=== PATIENT | male | born 1955 | race American Indian/Alaskan Native ===

== ENCOUNTER 2018-11-23 22:11 | Inpatient (IN) | payer OTHER ==
[2018-11-23 23:13] LABS: Basophils # (Auto) 0.1 K/mm3 (0.0-0.1); Basophils % (Auto) 1.6 % (0.0-1.8); Hematocrit 41.3 % (35.5-45.6); Hemoglobin 13.4 gm/dl (11.8-15.2); Lymphocytes % (Auto) 20.2 % (13.4-35.0); Mean Corpuscular HGB Conc 32 % (32-34); Mean Corpuscular Volume 76 fl (84-94); Monocytes # (Auto) 0.4 K/mm3 (0.0-0.8); Monocytes % (Auto) 7.4 % (0.0-7.3); Platelet Count 193 K/mm3 (140-440); Red Blood Count 5.42 M/mm3 (3.65-5.03); Red Cell Distribution Width 17.6 % (13.2-15.2)
--- NOTE | 2018-11-23 23:16 | Emergency Department Report ---
ED General Adult HPI - General Chief complaint: Chest Pain Stated complaint: CHEST PAIN/SOB/STIFFNESS OF BOTH LEGS Time Seen by Provider: 11/23/18 23:06 Source: patient Mode of arrival: Ambulatory Limitations: No Limitations - History of Present Illness Initial comments: 63-year-old male with a history of hypertension, diabetes, and hypercholesterolemia presents complaining of chest pain. Patient states the chest pain is in the left side of his chest. Patient states the chest pain began this morning. Patient states the pain has been recurring. Patient states the pain radiates to his neck and his left upper extremity. Patient denies any history of DVT or PE and has been no recent travel last 2 years. Patient does admit to smoking cigarettes. Patient complains of a dry cough. Patient complains of lower extremity swelling as well as stiffness in both of his legs. Severity scale (0 -10): 10 - Related Data Home Medications Medication Instructions Recorded Confirmed Last Taken Aspirin 81 mg PO DAILY 11/23/18 11/23/18 11/23/18 Losartan [Cozaar] 100 mg PO QDAY 11/23/18 11/23/18 11/23/18 Simvastatin 20 mg PO DAILY 11/23/18 11/23/18 11/23/18 amLODIPine [Norvasc] 5 mg PO DAILY 11/23/18 11/23/18 11/23/18 glipiZIDE XL [Glucotrol Xl] 10 mg PO DAILY 11/23/18 11/23/18 11/23/18 Allergies Allergy/AdvReac Type Severity Reaction Status Date / Time lisinopril Allergy Unknown Verified 11/23/18 22:13 ED Review of Systems ROS: Stated complaint: CHEST PAIN/SOB/STIFFNESS OF BOTH LEGS Other details as noted in HPI Constitutional: denies: chills, fever Eyes: denies: eye pain, eye discharge, vision change ENT: denies: ear pain, throat pain Respiratory: denies: cough, shortness of breath, wheezing Cardiovascular: chest pain Endocrine: no symptoms reported Gastrointestinal: denies: abdominal pain, nausea, diarrhea Genitourinary: denies: urgency, dysuria Musculoskeletal: other (lower extremity swelling). denies: back pain, joint swelling, arthralgia Skin: denies: rash, lesions Neurological: weakness. denies: headache, paresthesias Psychiatric: denies: anxiety, depression Hematological/Lymphatic: denies: easy bleeding, easy bruising ED Past Medical Hx - Social History Smoking Status: Current Some Day Smoker Substance Use Type: Alcohol - Medications Home Medications: Home Medications Medication Instructions Recorded Confirmed Last Taken Type Aspirin 81 mg PO DAILY 11/23/18 11/23/18 11/23/18 History Losartan [Cozaar] 100 mg PO QDAY 11/23/18 11/23/18 11/23/18 History Simvastatin 20 mg PO DAILY 11/23/18 11/23/18 11/23/18 History amLODIPine [Norvasc] 5 mg PO DAILY 11/23/18 11/23/18 11/23/18 History glipiZIDE XL [Glucotrol Xl] 10 mg PO DAILY 11/23/18 11/23/18 11/23/18 History ED Physical Exam - General Limitations: No Limitations General appearance: alert, other (uncomfortable, mild distress) - Head Head exam: Present: atraumatic, normocephalic - Eye Eye exam: Present: normal appearance - ENT ENT exam: Present: mucous membranes moist - Neck Neck exam: Present: normal inspection - Respiratory Respiratory exam: Present: rales (fine rales bibasilar). Absent: respiratory distress - Cardiovascular Cardiovascular Exam: Present: regular rate, normal rhythm. Absent: systolic murmur, diastolic murmur, rubs, gallop - GI/Abdominal GI/Abdominal exam: Present: soft, normal bowel sounds - Rectal Rectal exam: Present: deferred - Extremities Exam Extremities exam: Present: other (skin tears noted bilaterally; 2+ edema bilaterally in lower extremities) - Back Exam Back exam: Present: normal inspection - Neurological Exam Neurological exam: Present: alert, oriented X3, CN II-XII intact. Absent: motor sensory deficit - Psychiatric Psychiatric exam: Present: normal affect, normal mood - Skin Skin exam: Present: warm, dry, intact, normal color. Absent: rash ED Course Vital Signs 11/23/18 11/23/18 11/23/18 22:36 23:07 23:30 Temperature 97.4 F L Pulse Rate 94 H Respiratory 18 18 18 Rate Blood Pressure 188/116 Blood Pressure [Left] O2 Sat by Pulse 99 Oximetry 11/23/18 11/24/18 11/24/18 23:45 00:00 00:15 Temperature Pulse Rate 79 70 Respiratory 20 21 10 L Rate Blood Pressure 163/98 163/80 Blood Pressure [Left] O2 Sat by Pulse Oximetry 11/24/18 11/24/18 11/24/18 00:16 00:30 00:45 Temperature Pulse Rate 73 74 Respiratory 16 18 16 Rate Blood Pressure 161/86 Blood Pressure 163/80 [Left] O2 Sat by Pulse 97 Oximetry 11/24/18 11/24/18 01:00 01:59 Temperature Pulse Rate 72 76 Respiratory 18 Rate Blood Pressure 169/83 161/78 Blood Pressure [Left] O2 Sat by Pulse Oximetry ED Medical Decision Making - Lab Data Result diagrams: 11/23/18 22:59 11/23/18 22:59 - EKG Data EKG shows normal: sinus rhythm - EKG Data Interpretation: LVH - Medical Decision Making EKG send to scalemaker, Dr. Mc who states that there is no STEMI present. Patient noted to have an elevated BNP. Patient to be admitted to the hospitalist service for continued management and treatment. Patient to be admitted for chest pain. Patient received Aspirin, Nitro, and Lasix therapy while in the ER. - Differential Diagnosis STEMI; NSTEMI; Dehydration; Electrolyte Abnormality; Critical care attestation.: If time is entered above; I have spent that time in minutes in the direct care of this critically ill patient, excluding procedure time. ED Disposition Clinical Impression: Chest pain, CHF (congestive heart failure) Disposition: OP ADMIT IP TO THIS HOSP Is pt being admited?: Yes Does the pt Need Aspirin: No Condition: Stable Instructions: Chest Pain (ED) Time of Disposition: 02:13 Print Language: LUX[place]
[2018-11-23 23:31] LABS: Calcium 8.7 mg/dL (8.4-10.2)
[2018-11-23] MEDS ORDERED: MORPHINE IV ONE (23:42)
[2018-11-23] MEDS ORDERED: BABY ASPIRIN PO ONE (23:42)
[2018-11-23] MEDS ORDERED: ZOFRAN IV ONE (23:42)
--- NOTE | 2018-11-24 00:06 | XRay Report ---
PROCEDURE: XR CHEST ROUTINE 2V TECHNIQUE: PA and lateral chest HISTORY: Chest Pain COMPARISONS: No priors FINDINGS: Cardiac silhouette is enlarged. No airspace consolidation or pleural effusions. Pulmonary vasculature is within normal limits. Bony thorax is unremarkable. IMPRESSION: Cardiomegaly with no evidence of failure or acute infiltrates.. This document is electronically signed by Malcolm Mcleod MD., November 24 2018 12:04:20 AM ET
[2018-11-24] MEDS ORDERED: NITROSTAT SL ONE (01:38)
[2018-11-24] MEDS ORDERED: LASIX IV ONE (01:39)
[2018-11-24] MEDS ORDERED: MORPHINE IV PRN (02:36)
[2018-11-24] MEDS ORDERED: SODIUM CHLORIDE FLUSH SYRINGE 10 ML IV PRN ×2 (02:36)
[2018-11-24] MEDS ORDERED: ZOFRAN IV PRN (02:36)
[2018-11-24] MEDS ORDERED: APRESOLINE IV PRN (02:36)
[2018-11-24] MEDS ORDERED: TYLENOL PO PRN (02:36)
[2018-11-24] MEDS ORDERED: LOVENOX SUB-Q ONE (02:49)
[2018-11-24 03:30] LABS: Basophils # (Auto) 0.1 K/mm3 (0.0-0.1); Basophils % (Auto) 2.1 % (0.0-1.8); Eosinophils # (Auto) 0.1 K/mm3 (0.0-0.4); Eosinophils % (Auto) 1.2 % (0.0-4.3); Hematocrit 37.5 % (35.5-45.6); Hemoglobin 12.1 gm/dl (11.8-15.2); Lymphocytes # (Auto) 1.1 K/mm3 (1.2-5.4); Lymphocytes % (Auto) 23.2 % (13.4-35.0); Mean Corpuscular HGB Conc 32 % (32-34); Mean Corpuscular Volume 77 fl (84-94); Monocytes # (Auto) 0.4 K/mm3 (0.0-0.8); Monocytes % (Auto) 8.8 % (0.0-7.3); Platelet Count 196 K/mm3 (140-440); Red Cell Distribution Width 17.7 % (13.2-15.2)
--- NOTE | 2018-11-24 04:32 | History and Physical Report ---
<NERI MATIAS - Last Filed: 11/24/18 04:33> History of Present Illness Date of examination: 11/24/18 Date of admission: 11/24/18 02:36 Chief complaint: Chest pain and shortness of breath History of present illness: 63-year-old male with PMHx CHF, DM type II, hypertension, who presents to the ER for complaints of chest pain and shortness of breath. Patient states that the symptoms has being going on and off for a few days, he woke up this morning with chest pain and difficulty breathing, the symptoms continues throughout the day patient states that the pain is located in his left substernal area, radiates to his neck and the left arm, associated with severe dyspnea, patient also complains of pain and swelling on he legs, he denies prior history of DE, denied prior similar chest pain, denies palpitation, denied diaphoresis, denies nausea, denies vomiting, denies fever or chills. In the ER patient's blood pressure was 188/116 his creatinine was 1.7, his blood sugar was 61, EKG should no BLAYNE DE criteria, cardiac enzymes were negative, patient chest x-ray showed no acute infiltrates, he is BNP level was 9449 patient's was admitted for chest pain and further evaluation presenting symptoms. Past History Past Medical History: diabetes, hypertension Past Surgical History: Other Social history: , lives with family, smoking Family history: no significant family history Medications and Allergies Allergies Allergy/AdvReac Type Severity Reaction Status Date / Time lisinopril Allergy Unknown Verified 11/23/18 22:13 Home Medications Medication Instructions Recorded Confirmed Last Taken Type Aspirin 81 mg PO DAILY 11/23/18 11/23/18 11/23/18 History Losartan [Cozaar] 100 mg PO QDAY 11/23/18 11/23/18 11/23/18 History Simvastatin 20 mg PO DAILY 11/23/18 11/23/18 11/23/18 History amLODIPine [Norvasc] 5 mg PO DAILY 11/23/18 11/23/18 11/23/18 History glipiZIDE XL [Glucotrol Xl] 10 mg PO DAILY 11/23/18 11/23/18 11/23/18 History Active Meds: Active Medications Acetaminophen (Tylenol) 650 mg PO Q4H PRN PRN Reason: Pain MILD(1-3)/Fever >100.5/JONES Aspirin (Ecotrin) 325 mg PO QDAY [facility] Furosemide (Lasix) 20 mg IV QDAY [facility] Hydralazine HCl (Apresoline) 10 mg IV Q6HR PRN PRN Reason: FOR SBP > target Insulin Human Regular (Humulin R) 0 units SUB-Q ACHS [facility]; Protocol Morphine Sulfate (Morphine) 2 mg IV Q4H PRN PRN Reason: Pain, Moderate (4-6) Nitroglycerin (Nitro-Bid 2%) 0.5 inch TP QIDNTG [facility]; Protocol Ondansetron HCl (Zofran) 4 mg IV Q8H PRN PRN Reason: Nausea And Vomiting Sodium Chloride (Sodium Chloride Flush Syringe 10 Ml) 10 ml IV BID [facility] Sodium Chloride (Sodium Chloride Flush Syringe 10 Ml) 10 ml IV PRN PRN PRN Reason: LINE FLUSH Review of Systems Constitutional: fatigue Cardiovascular: chest pain, edema, high blood pressure Gastrointestinal: no abdominal pain Integumentary: sores, other (skin tears) Exam - Constitutional Vitals: Temp Pulse Resp BP Pulse Ox 97.4 F L 88 22 166/93 97 11/23/18 22:36 11/24/18 03:45 11/24/18 04:00 11/24/18 03:45 11/24/18 00:16 General appearance: Present: mild distress - EENT Eyes: Present: EOM intact ENT: hearing intact - Neck Neck: Present: normal ROM - Respiratory Respiratory effort: normal Respiratory: bilateral: diminished - Cardiovascular Rhythm: regular - Abdominal General gastrointestinal: Present: non-tender, non-distended Male genitourinary: Present: deferred - Rectal Rectal Exam: deferred - Integumentary Integumentary: Present: warm - Musculoskeletal Musculoskeletal: strength equal bilaterally - Psychiatric Psychiatric: cooperative - Neurologic Neurologic: moves all extremities Results - Labs CBC & Chem 7: 11/24/18 03:17 11/23/18 22:59 Labs: Laboratory Last Values WBC 4.8 K/mm3 (4.5-11.0) 11/24/18 03:17 RBC 4.90 M/mm3 (3.65-5.03) 11/24/18 03:17 Hgb 12.1 gm/dl (11.8-15.2) 11/24/18 03:17 Hct 37.5 % (35.5-45.6) 11/24/18 03:17 MCV 77 fl (84-94) L 11/24/18 03:17 MCH 25 pg (28-32) L 11/24/18 03:17 MCHC 32 % (32-34) 11/24/18 03:17 RDW 17.7 % (13.2-15.2) H 11/24/18 03:17 Plt Count 196 K/mm3 (140-440) 11/24/18 03:17 Lymph % (Auto) 23.2 % (13.4-35.0) 11/24/18 03:17 [place] % (Auto) 8.8 % (0.0-7.3) H 11/24/18 03:17 Eos % (Auto) 1.2 % (0.0-4.3) 11/24/18 03:17 Baso % (Auto) 2.1 % (0.0-1.8) H 11/24/18 03:17 Lymph # 1.1 K/mm3 (1.2-5.4) L 11/24/18 03:17 [place] # 0.4 K/mm3 (0.0-0.8) 11/24/18 03:17 Eos # 0.1 K/mm3 (0.0-0.4) 11/24/18 03:17 Baso # 0.1 K/mm3 (0.0-0.1) 11/24/18 03:17 Seg Neutrophils % 64.7 % (40.0-70.0) 11/24/18 03:17 Seg Neutrophils # 3.1 K/mm3 (1.8-7.7) 11/24/18 03:17 Sodium 136 mmol/L (137-145) L 11/23/18 22:59 Potassium 4.4 mmol/L (3.6-5.0) 11/23/18 22:59 Chloride 102.2 mmol/L (98-107) 11/23/18 22:59 Carbon Dioxide 20 mmol/L (22-30) L 11/23/18 22:59 Anion Gap 18 mmol/L 11/23/18 22:59 BUN 21 mg/dL (9-20) H 11/23/18 22:59 Creatinine 1.7 mg/dL (0.8-1.5) H 11/23/18 22:59 Estimated GFR 41 ml/min 11/23/18 22:59 BUN/Creatinine Ratio 12 % 11/23/18 22:59 Glucose 61 mg/dL (75-100) L 11/23/18 22:59 Calcium 8.7 mg/dL (8.4-10.2) 11/23/18 22:59 Troponin T 0.016 ng/mL (0.00-0.029) 11/23/18 22:59 NT-Pro-B Natriuret Pep 9449 pg/mL (0-900) H 11/23/18 22:59 Assessment and Plan Assessment and plan: 1. Chest pain rule out ACS 2. Acute dyspnea 3. CHF (EF unknown, BNP 9449) 4. Accelerated hypertension 5. DM type II 6. Cigarette smoking disorder Plan: Patient is admitted for chest pain and CHF Continue cardiac enzymes every 62 Pssible stress test in am Lasix 20 mg IV for CHF Fluid restriction Daily weight Nitroglycerin half inch to chest wall Hydralazine 10 mg IV every 6 hrs PRN for SBP> 160 Resume home medication Accu-Chek with insulin per sliding scale Echo to evaluate cardiac function VTE prophylaxis with heparin Plan of care discussed with patient and family at bedside gross understanding Patient's condition and plan of care discussed with Dr. Fitch Advance Directives: Yes VTE prophylaxis?: Chemical Plan of care discussed with patient/family: Yes <KHANH FITCH E - Last Filed: 11/24/18 06:45> History of Present Illness Date of admission: 11/24/18 02:36 Medications and Allergies Active Meds: Active Medications Acetaminophen (Tylenol) 650 mg PO Q4H PRN PRN Reason: Pain MILD(1-3)/Fever >100.5/JONES Aspirin (Ecotrin) 325 mg PO QDAY [facility]ITH[facility] Furosemide (Lasix) 20 mg IV QDAY [facility]ITH[facility] Hydralazine HCl (Apresoline) 10 mg IV Q6HR PRN PRN Reason: FOR SBP > target Insulin Human Regular (Humulin R) 0 units SUB-Q ACHS [facility]; Protocol Morphine Sulfate (Morphine) 2 mg IV Q4H PRN PRN Reason: Pain, Moderate (4-6) Nitroglycerin (Nitro-Bid 2%) 0.5 inch TP QIDNTG [facility]; Protocol Ondansetron HCl (Zofran) 4 mg IV Q8H PRN PRN Reason: Nausea And Vomiting Sodium Chloride (Sodium Chloride Flush Syringe 10 Ml) 10 ml IV BID [facility] Sodium Chloride (Sodium Chloride Flush Syringe 10 Ml) 10 ml IV PRN PRN PRN Reason: LINE FLUSH Exam - Constitutional Vitals: Temp Pulse Resp BP Pulse Ox 97.4 F L 88 22 166/93 97 11/23/18 22:36 11/24/18 03:45 11/24/18 04:00 11/24/18 03:45 11/24/18 00:16 Results - Labs CBC & Chem 7: 11/24/18 03:17 11/24/18 03:17 Labs: Laboratory Last Values WBC 4.8 K/mm3 (4.5-11.0) 11/24/18 03:17 RBC 4.90 M/mm3 (3.65-5.03) 11/24/18 03:17 Hgb 12.1 gm/dl (11.8-15.2) 11/24/18 03:17 Hct 37.5 % (35.5-45.6) 11/24/18 03:17 MCV 77 fl (84-94) L 11/24/18 03:17 MCH 25 pg (28-32) L 11/24/18 03:17 MCHC 32 % (32-34) 11/24/18 03:17 RDW 17.7 % (13.2-15.2) H 11/24/18 03:17 Plt Count 196 K/mm3 (140-440) 11/24/18 03:17 Lymph % (Auto) 23.2 % (13.4-35.0) 11/24/18 03:17 [place] % (Auto) 8.8 % (0.0-7.3) H 11/24/18 03:17 Eos % (Auto) 1.2 % (0.0-4.3) 11/24/18 03:17 Baso % (Auto) 2.1 % (0.0-1.8) H 11/24/18 03:17 Lymph # 1.1 K/mm3 (1.2-5.4) L 11/24/18 03:17 [place] # 0.4 K/mm3 (0.0-0.8) 11/24/18 03:17 Eos # 0.1 K/mm3 (0.0-0.4) 11/24/18 03:17 Baso # 0.1 K/mm3 (0.0-0.1) 11/24/18 03:17 Seg Neutrophils % 64.7 % (40.0-70.0) 11/24/18 03:17 Seg Neutrophils # 3.1 K/mm3 (1.8-7.7) 11/24/18 03:17 Sodium 137 mmol/L (137-145) 11/24/18 03:17 Potassium 4.2 mmol/L (3.6-5.0) 11/24/18 03:17 Chloride 103.4 mmol/L (98-107) 11/24/18 03:17 Carbon Dioxide 17 mmol/L (22-30) L 11/24/18 03:17 Anion Gap 21 mmol/L 11/24/18 03:17 BUN 18 mg/dL (9-20) 11/24/18 03:17 Creatinine 1.9 mg/dL (0.8-1.5) H 11/24/18 03:17 Estimated GFR 44 ml/min 11/24/18 03:17 BUN/Creatinine Ratio 9 % 11/24/18 03:17 Glucose 42 mg/dL (75-100) L 11/24/18 03:17 Hemoglobin A1c 7.1 % (4-6) H 11/24/18 03:17 Calcium 8.4 mg/dL (8.4-10.2) 11/24/18 03:17 Troponin T 0.016 ng/mL (0.00-0.029) 11/23/18 22:59 NT-Pro-B Natriuret Pep 9449 pg/mL (0-900) H 11/23/18 22:59 Triglycerides 58 mg/dL (2-149) 11/24/18 03:17 Cholesterol 97 mg/dL (50-199) 11/24/18 03:17 LDL Cholesterol Direct 45 mg/dL (50-130) L 11/24/18 03:17 HDL Cholesterol 45 mg/dL (40-59) 11/24/18 03:17 Cholesterol/HDL Ratio 2.15 % 11/24/18 03:17 Assessment and Plan Assessment and plan: 63-year-old man with a history of hypertension, diabetes, hyperlipidemia, CKD comes to the emergency room with complaints of chest pain 5 days which she describes as a "serious pain", located in the left chest radiating to the left arm and associated with shortness of breath, dyspnea and exertion. He's been taking aspirin for the pain without significant relief. A month ago he developed lower extremity edema going up to the thigh, is doctor started him on a diuretic, edema improved but now returned, complaining of PND, orthopnea. Agree with diuresis, increase Lasix to 40 twice a day, start beta yousif, aspirin, continue ARB, obtain stress test, consult cardiology, monitor I/Os, daily weights. Patient seen and examined as practitioner
[2018-11-24 05:30] LABS: Calcium 8.4 mg/dL (8.4-10.2); Chol/HDL Ratio 2.15 %
[2018-11-24] MEDS: LASIX IV SCH ×2 (06:24→17:43)
[2018-11-24] MEDS ORDERED: D50W (25GM) Syringe IV PRN (06:41)
[2018-11-24] MEDS ORDERED: HumuLIN R SUB-Q SCH (07:30)
[2018-11-24] MEDS: HumaLOG SUB-Q SCH ×4 (08:34→21:57)
[2018-11-24] MEDS: GLUCOTROL XL PO SCH (08:37)
[2018-11-24] MEDS: BABY ASPIRIN PO SCH (09:23)
[2018-11-24] MEDS: COREG PO SCH ×2 (09:24→21:57)
[2018-11-24] MEDS: COZAAR PO SCH (09:25)
[2018-11-24] MEDS: SODIUM CHLORIDE FLUSH SYRINGE 10 ML IV SCH ×2 (09:26→21:57)
[2018-11-24] MEDS: NITRO-BID 2% TP SCH ×4 (09:26→17:44)
[2018-11-24] MEDS ORDERED: LASIX IV SCH (10:00)
[2018-11-24] MEDS ORDERED: ASPIRIN PO SCH (10:00)
[2018-11-24] MEDS ORDERED: NON-FORMULARY (Losartan [Cozaar] 100 MG) PO SCH (10:00)
[2018-11-24] MEDS ORDERED: NON-FORMULARY (Simvastatin [Simvastatin] 20 MG) PO SCH (10:00)
[2018-11-24] MEDS ORDERED: NORVASC PO SCH (10:00)
[2018-11-24] MEDS ORDERED: LEXISCAN IV ONE ×2 (11:16→12:00)
[2018-11-24] MEDS ORDERED: AFLURIA QUAD 2018-2019 SYRINGE IM ONE (12:00)
--- NOTE | 2018-11-24 13:44 | Consultation ---
History of Present Illness Consult date: 11/24/18 Consult reason: congestive heart failure History of present illness: Patient's a 63-year-old man with a history of hypertension and diabetes. He is a poor history, unable to articulate whether he maintains proper pressure management under long-term basis. He is not able to articulate any prior cardiac history all prior cardiac workup. He presented to the hospital at this time, with progressive shortness of breath. On presentation, his blood pressure was 188/116. Chest x-ray shows moderate to severe cardiomegaly, but no interstitial edema and no heart failure. EKG was sinus rhythm with nonspecific ST and T wave abnormalities. He was ordered for a Persantine thallium stress test and echocardiogram, the results of which are pending. Past History Past Medical History: diabetes, hypertension Past Surgical History: Other Social history: , lives with family, smoking Family history: no significant family history Medications and Allergies Allergies Allergy/AdvReac Type Severity Reaction Status Date / Time lisinopril Allergy Unknown Verified 11/23/18 22:13 Home Medications Medication Instructions Recorded Confirmed Last Taken Type Aspirin 81 mg PO DAILY 11/23/18 11/23/18 11/23/18 History Losartan [Cozaar] 100 mg PO QDAY 11/23/18 11/23/18 11/23/18 History Simvastatin 20 mg PO DAILY 11/23/18 11/23/18 11/23/18 History amLODIPine [Norvasc] 5 mg PO DAILY 11/23/18 11/23/18 11/23/18 History glipiZIDE XL [Glucotrol Xl] 10 mg PO DAILY 11/23/18 11/23/18 11/23/18 History Active Meds: Active Medications Acetaminophen (Tylenol) 650 mg PO Q4H PRN PRN Reason: Pain MILD(1-3)/Fever >100.5/JONES Last Admin: 11/24/18 09:24 Dose: 650 mg Documented by: Amlodipine Besylate (Norvasc) 5 mg PO DAILY [facility] Last Admin: 11/24/18 09:29 Dose: 5 mg Documented by: Aspirin (Baby Aspirin) 81 mg PO DAILY [facility] Last Admin: 11/24/18 09:23 Dose: 81 mg Documented by: Carvedilol (Coreg) 3.125 mg PO BID [facility] Last Admin: 11/24/18 09:24 Dose: 3.125 mg Documented by: Dextrose (D50w (25gm) Syringe) 50 ml IV PRN PRN PRN Reason: Hypoglycemia Furosemide (Lasix) 40 mg IV BID@0600,1800 [facility] Last Admin: 11/24/18 06:24 Dose: 40 mg Documented by: Glipizide (Glucotrol Xl) 10 mg PO QDDIAB [facility] Last Admin: 11/24/18 08:37 Dose: Not Given Documented by: Hydralazine HCl (Apresoline) 10 mg IV Q6HR PRN PRN Reason: FOR SBP > target Insulin Human Lispro (Humalog) 0 unit SUB-Q ACHS [facility]; Protocol Last Admin: 11/24/18 13:14 Dose: Not Given Documented by: Losartan Potassium (Cozaar) 100 mg PO QDAY [facility] Last Admin: 11/24/18 09:25 Dose: 100 mg Documented by: Nitroglycerin (Nitro-Bid 2%) 0.5 inch TP QIDNTG [facility]; Protocol Last Admin: 11/24/18 09:26 Dose: 0.5 inch Documented by: Ondansetron HCl (Zofran) 4 mg IV Q8H PRN PRN Reason: Nausea And Vomiting Pravastatin Sodium (Pravachol) 40 mg PO QHS [facility] Sodium Chloride (Sodium Chloride Flush Syringe 10 Ml) 10 ml IV BID [facility] Last Admin: 11/24/18 09:26 Dose: 10 ml Documented by: Sodium Chloride (Sodium Chloride Flush Syringe 10 Ml) 10 ml IV PRN PRN PRN Reason: LINE FLUSH Review of Systems Cardiovascular: shortness of breath, no chest pain, no orthopnea, no p alpitations, no rapid/irregular heart beat, no edema, no syncope, no lightheadedness Physical Examination Vital Signs Temp Pulse Resp BP Pulse Ox 97.4 F L 94 H 18 188/116 99 11/23/18 22:36 11/23/18 22:36 11/23/18 22:36 11/23/18 22:36 11/23/18 22:36 General appearance: no acute distress HEENT: Positive: PERRL Neck: Positive: neck supple Cardiac: Positive: Reg Rate and Rhythm Lungs: Positive: Decreased Breath Sounds Neuro: Positive: Grossly Intact Abdomen: Positive: Soft Male genitourinary: Positive: deferred Skin: Positive: Clear Extremities: Absent: edema Results 11/24/18 03:17 11/24/18 03:17 Lipids 11/24/18 Range/Units 03:17 Triglycerides 58 (2-149) mg/dL Cholesterol 97 (50-199) mg/dL HDL Cholesterol 45 (40-59) mg/dL Cholesterol/HDL Ratio 2.15 % CBC 11/23/18 11/24/18 Range/Units 22:59 03:17 WBC 4.9 4.8 (4.5-11.0) K/mm3 RBC 5.42 H 4.90 (3.65-5.03) M/mm3 Hgb 13.4 12.1 (11.8-15.2) gm/dl Hct 41.3 37.5 (35.5-45.6) % Plt Count 193 196 (140-440) K/mm3 Lymph # 1.0 L 1.1 L (1.2-5.4) K/mm3 [place] # 0.4 0.4 (0.0-0.8) K/mm3 Eos # 0.0 0.1 (0.0-0.4) K/mm3 Baso # 0.1 0.1 (0.0-0.1) K/mm3 Comprehensive Metabolic Panel 11/23/18 11/24/18 Range/Units 22:59 03:17 Sodium 136 L 137 (137-145) mmol/L Potassium 4.4 4.2 (3.6-5.0) mmol/L Chloride 102.2 103.4 (98-107) mmol/L Carbon Dioxide 20 L 17 L (22-30) mmol/L BUN 21 H 18 (9-20) mg/dL Creatinine 1.7 H 1.9 H (0.8-1.5) mg/dL Glucose 61 L 42 L (75-100) mg/dL Calcium 8.7 8.4 (8.4-10.2) mg/dL EKG interpretations - Telemetry EKG Rhythm: Sinus Rhythm Assessment and Plan - Patient Problems (1) Shortness of breath Current Visit: Yes Status: Acute Plan to address problem: 63-year-old man with chronic hypertension presents with uncontrolled hypertension and shortness of breath. There is significant cardiomegaly on his chest x-ray, that suggests an underlying cardiomyopathy. We will aggressively treat blood pressure, get an echocardiogram for left ventricular function assessment, a myocardial perfusion stress test was ordered by the hospitalist service will be completed. Further cardiac evaluation and management would depend on clinical course.
[2018-11-24] MEDS: PROCARDIA XL PO SCH (15:15)
--- NOTE | 2018-11-24 19:47 | Progress Note ---
Assessment and Plan 63-year-old male with PMHx CHF, DM type II, hypertension, who presents to the ER for complaints of chest pain and shortness of breath. Patient states that the symptoms has being going on and off for a few days, he woke up this morning with chest pain and difficulty breathing, the symptoms continues throughout the day patient states that the pain is located in his left substernal area, radiates to his neck and the left arm, associated with severe dyspnea, patient also complains of pain and swelling on he legs, he denies prior history of [place], denied prior similar chest pain, denies palpitation, denied diaphoresis, denies nausea, denies vomiting, denies fever or chills. In the ER patient's blood pressure was 188/116 his creatinine was 1.7, his blood sugar was 61, EKG should no JOSÉ LUIS [place] criteria, cardiac enzymes were negative, patient chest x-ray showed no acute infiltrates, he is BNP level was 9449 patient's was admitted for chest pain and further evaluation presenting symptoms. 1. Chest pain rule out ACS 2. Acute dyspnea 3. Acute on chronic combined systolic and diastolic heart failure with EF of 15-25% 4. Accelerated hypertension 5. DM type II 6. Tobacco use disorder Plan: Continue with oxygen nitroglycerin and aspirin and morphine. Strict inputs and outputs, daily weights, 2 g sodium diet. Diuresis, beta blockers, José Luis, statins. Follow-up with result off stress test Hydralazine 10 mg IV every 6 hrs PRN for SBP> 160 Resume home medication Accu-Chek with insulin per sliding scale Tobacco cessation counseling VTE prophylaxis with heparin Plan of care discussed with patient and family at bedside gross understanding Advance Directives: Yes VTE prophylaxis?: Chemical Plan of care discussed with patient/family: Yes Subjective Date of service: 11/24/18 Principal diagnosis: chest pain, shortness of breath. Interval history: Chest pain symptoms resolved. Still having shortness of breath. Objective - Exam Narrative Exam: Constitutional: Well-nourished well-developed. In no distress Head: Normocephalic atraumatic Eyes: Pupils are equal round and reactive to light Nose: No enlarged turbinates, no septal deviation. Mouth: Moist mucous membranes. Neck: Supple no thyromegaly. No bruit. No JVD Heart: Regular rate and rhythm, S1-S2 normal. No rubs murmurs or gallop Lungs: Clear to auscultation bilaterally. no rales or rhonchi Abdomen: Soft, nontender. Bowel sound are present. Extremities: 1+ edema, no cyanosis, no clubbing. Neuro: Alert oriented Oriented x3. No focal sensory or motor deficit. Skin: Multiple skin rashes with hyperpigmented spots Musculoskeletal system: No joint pain or swelling Hematological: No petechia or subcutanous hemorrhages. Immunological: No multiple septic spots on the skin Lymphatic: No generalized lymphadenopathy Psychiatry: Euthymic. Calm. - Constitutional Vitals: Vital Signs - 12hr 11/24/18 11/24/18 11/24/18 08:20 08:22 09:23 Temperature 98.1 F Pulse Rate 77 Pulse Rate [ Apical] Pulse Rate [ Left Radial] Pulse Rate [ Right Radial] Respiratory 20 Rate Blood Pressure 155/82 154/86 Blood Pressure [Left] O2 Sat by Pulse 100 Oximetry 11/24/18 11/24/18 11/24/18 09:24 09:25 09:26 Temperature Pulse Rate 77 77 77 Pulse Rate [ Apical] Pulse Rate [ Left Radial] Pulse Rate [ Right Radial] Respiratory Rate Blood Pressure 154/86 154/86 154/86 Blood Pressure [Left] O2 Sat by Pulse Oximetry 11/24/18 11/24/18 11/24/18 09:29 10:00 11:18 Temperature Pulse Rate 77 Pulse Rate [ 77 Apical] Pulse Rate [ 77 Left Radial] Pulse Rate [ 77 Right Radial] Respiratory 18 Rate Blood Pressure 154/86 137/80 Blood Pressure [Left] O2 Sat by Pulse 98 Oximetry 11/24/18 11/24/18 11/24/18 11:19 11:51 11:52 Temperature Pulse Rate Pulse Rate [ Apical] Pulse Rate [ Left Radial] Pulse Rate [ Right Radial] Respiratory Rate Blood Pressure 143/82 150/83 156/77 Blood Pressure [Left] O2 Sat by Pulse Oximetry 11/24/18 11/24/18 11/24/18 11:54 11:56 11:59 Temperature Pulse Rate Pulse Rate [ Apical] Pulse Rate [ Left Radial] Pulse Rate [ Right Radial] Respiratory Rate Blood Pressure 148/75 148/73 151/76 Blood Pressure [Left] O2 Sat by Pulse Oximetry 11/24/18 11/24/18 11/24/18 14:00 14:12 15:15 Temperature 98.3 F Pulse Rate 79 69 69 Pulse Rate [ Apical] Pulse Rate [ Left Radial] Pulse Rate [ Right Radial] Respiratory 20 Rate Blood Pressure 142/81 Blood Pressure 142/81 [Left] O2 Sat by Pulse 95 Oximetry 11/24/18 11/24/18 17:33 17:44 Temperature 97.8 F Pulse Rate 71 72 Pulse Rate [ Apical] Pulse Rate [ Left Radial] Pulse Rate [ Right Radial] Respiratory 22 Rate Blood Pressure 145/85 Blood Pressure 144/85 [Left] O2 Sat by Pulse 94 Oximetry - Labs CBC & Chem 7: 11/24/18 03:17 11/24/18 03:17 Labs: Abnormal lab results 11/23/18 11/23/18 11/23/18 Range/Units 22:59 22:59 22:59 RBC 5.42 H (3.65-5.03) M/mm3 MCV 76 L (84-94) fl MCH 25 L (28-32) pg RDW 17.6 H (13.2-15.2) % [place] % (Auto) 7.4 H (0.0-7.3) % Baso % (Auto) (0.0-1.8) % Lymph # 1.0 L (1.2-5.4) K/mm3 Sodium 136 L (137-145) mmol/L Carbon Dioxide 20 L (22-30) mmol/L BUN 21 H (9-20) mg/dL Creatinine 1.7 H (0.8-1.5) mg/dL Glucose 61 L (75-100) mg/dL Hemoglobin A1c (4-6) % NT-Pro-B Natriuret Pep 9449 H (0-900) pg/mL LDL Cholesterol Direct (50-130) mg/dL 11/24/18 11/24/18 11/24/18 Range/Units 03:17 03:17 03:17 RBC (3.65-5.03) M/mm3 MCV 77 L (84-94) fl MCH 25 L (28-32) pg RDW 17.7 H (13.2-15.2) % [place] % (Auto) 8.8 H (0.0-7.3) % Baso % (Auto) 2.1 H (0.0-1.8) % Lymph # 1.1 L (1.2-5.4) K/mm3 Sodium (137-145) mmol/L Carbon Dioxide 17 L (22-30) mmol/L BUN (9-20) mg/dL Creatinine 1.9 H (0.8-1.5) mg/dL Glucose 42 L (75-100) mg/dL Hemoglobin A1c 7.1 H (4-6) % NT-Pro-B Natriuret Pep (0-900) pg/mL LDL Cholesterol Direct 45 L (50-130) mg/dL
--- NOTE | 2018-11-24 21:55 | Treadmill Report ---
THALLIUM STRESS TEST REPORT LEFT VENTRICLE: Left ventricle is moderately to severely dilated. There is a moderate sized, fixed inferior and apical defect of moderate intensity. On the resting study, there is no reversibility. Gated study is not available. CONCLUSION: Evidence of a dilated cardiomyopathy, fixed inferior defect of moderate intensity may represent diaphragmatic attenuation artifact, cannot exclude a prior small apical infarct. There is no reversible ischemia demonstrated on this study. Clinical correlation is recommended. [facility]# [id number] [place]/NTS
[2018-11-24] MEDS: PRAVACHOL PO SCH (21:57)
[2018-11-25] MEDS: LASIX IV SCH ×2 (05:28→18:14)
[2018-11-25] MEDS: NITRO-BID 2% TP SCH ×4 (05:28→18:51)
[2018-11-25] MEDS ORDERED: ECOTRIN PO SCH (10:00)
[2018-11-25] MEDS: GLUCOTROL XL PO SCH (11:04)
[2018-11-25] MEDS: BABY ASPIRIN PO SCH (11:04)
[2018-11-25] MEDS: COREG PO SCH ×2 (11:05→21:47)
[2018-11-25] MEDS: PROCARDIA XL PO SCH (11:05)
[2018-11-25] MEDS: COZAAR PO SCH (11:05)
[2018-11-25] MEDS: HumaLOG SUB-Q SCH ×4 (11:06→22:39)
[2018-11-25] MEDS: SODIUM CHLORIDE FLUSH SYRINGE 10 ML IV SCH ×2 (11:06→21:47)
[2018-11-25] MEDS: SENOKOT PO SCH ×2 (11:09→21:47)
--- NOTE | 2018-11-25 12:27 | Progress Note ---
Assessment and Plan Acute systolic heart failure persantine thallium stress test reports no reversible ischemia. echocardiogram reports severe 4 chamber dilated cardiomyopathy, EF 15-20%. The duration of his cardiomyopathy is uncertain. Acute renal failure Hypertension Diabetes Recommendations: Monitor electrolytes daily. Fluid/sodium restriction. Continue medical therapy for nonischemic cardiomyopathy. Subjective Date of service: 11/25/18 Principal diagnosis: chest pain, shortness of breath. Interval history: Patient reports his breathing is better. He admits he is diuresing well. Objective Vital Signs Temp Pulse Pulse Resp BP BP Pulse Ox 11/25/18 11:10 98.0 F 81 20 164/81 99 11/25/18 10:00 98 11/25/18 08:28 97.9 F 68 20 158/79 95 11/25/18 05:28 73 149/80 11/25/18 04:34 98.0 F 73 18 149/80 99 11/25/18 00:47 98 F 78 18 138/68 94 11/24/18 22:30 76 16 98 11/24/18 21:57 76 121/74 11/24/18 19:26 73 11/24/18 19:21 98.0 F 76 18 121/74 98 11/24/18 17:44 72 145/85 11/24/18 17:33 97.8 F 71 22 144/85 94 11/24/18 15:15 69 142/81 11/24/18 14:12 98.3 F 69 20 142/81 95 11/24/18 14:00 79 - Physical Examination General: No Apparent Distress HEENT: Positive: PERRL Neck: Positive: trachea midline Cardiac: Positive: Reg Rate and Rhythm Lungs: Positive: Decreased Breath Sounds Neuro: Positive: Grossly Intact Extremities: Absent: edema
--- NOTE | 2018-11-25 16:05 | Progress Note ---
Assessment and Plan Assessment and plan: 63-year-old male with PMHx CHF, DM type II, hypertension, who presents to the ER for complaints of chest pain and shortness of breath. Patient states that the symptoms has being going on and off for a few days, he woke up this morning with chest pain and difficulty breathing, the symptoms continues throughout the day patient states that the pain is located in his left substernal area, radiates to his neck and the left arm, associated with severe dyspnea, patient also complains of pain and swelling on he legs, he denies prior history of [place], denied prior similar chest pain, denies palpitation, denied diaphoresis, denies nausea, denies vomiting, denies fever or chills. In the ER patient's blood pressure was 188/116 his creatinine was 1.7, his blood sugar was 61, EKG should no JOSÉ LUIS [place] criteria, cardiac enzymes were negative, patient chest x-ray showed no acute infiltrates, he is BNP level was 9449 patient's was admitted for chest pain and further evaluation presenting symptoms. 1. Chest pain rule out ACS 2. Acute dyspnea 3. Acute on chronic combined systolic and diastolic heart failure with EF of 15-25% 4. Accelerated hypertension 5. DM type II 6. Tobacco use disorder 7. Constipation Plan: Continue with oxygen nitroglycerin and aspirin and morphine. Strict inputs and outputs, daily weights, 2 g sodium diet. Diuresis, beta blockers, José Luis, statins. GIVE STOOL SOFTERNER Follow-up with result off stress test Hydralazine 10 mg IV every 6 hrs PRN for SBP> 160 Resume home medication Accu-Chek with insulin per sliding scale Tobacco cessation counseling Discussed with cardiology VTE prophylaxis with heparin History Interval history: Patient seen and examined, complained of constipation today, and shortness of breath, otherwise no additional complaints. Hospitalist Physical - Physical exam Narrative exam: Constitutional: Well-nourished well-developed. In no distress Head: Normocephalic atraumatic Eyes: Pupils are equal round and reactive to light Nose: No enlarged turbinates, no septal deviation. Mouth: Moist mucous membranes. Neck: Supple no thyromegaly. No bruit. No JVD Heart: Regular rate and rhythm, S1-S2 normal. No rubs murmurs or gallop Lungs: Clear to auscultation bilaterally. no rales or rhonchi Abdomen: Soft, nontender. Bowel sound are present. Extremities: 1+ edema, no cyanosis, no clubbing. Neuro: Alert oriented Oriented x3. No focal sensory or motor deficit. Skin: Multiple skin rashes with hyperpigmented spots Musculoskeletal system: No joint pain or swelling Hematological: No petechia or subcutanous hemorrhages. Psychiatry: Euthymic. Calm. - Constitutional Vitals: Temp Pulse Resp BP Pulse Ox 98.2 F 66 20 135/74 94 11/25/18 15:29 11/25/18 15:29 11/25/18 15:29 11/25/18 15:29 11/25/18 15:29 General appearance: Present: no acute distress Results - Labs CBC & Chem 7: 11/24/18 03:17 11/24/18 03:17 Labs: Laboratory Last Values WBC 4.8 K/mm3 (4.5-11.0) 11/24/18 03:17 RBC 4.90 M/mm3 (3.65-5.03) 11/24/18 03:17 Hgb 12.1 gm/dl (11.8-15.2) 11/24/18 03:17 Hct 37.5 % (35.5-45.6) 11/24/18 03:17 MCV 77 fl (84-94) L 11/24/18 03:17 MCH 25 pg (28-32) L 11/24/18 03:17 MCHC 32 % (32-34) 11/24/18 03:17 RDW 17.7 % (13.2-15.2) H 11/24/18 03:17 Plt Count 196 K/mm3 (140-440) 11/24/18 03:17 Lymph % (Auto) 23.2 % (13.4-35.0) 11/24/18 03:17 [place] % (Auto) 8.8 % (0.0-7.3) H 11/24/18 03:17 Eos % (Auto) 1.2 % (0.0-4.3) 11/24/18 03:17 Baso % (Auto) 2.1 % (0.0-1.8) H 11/24/18 03:17 Lymph # 1.1 K/mm3 (1.2-5.4) L 11/24/18 03:17 [place] # 0.4 K/mm3 (0.0-0.8) 11/24/18 03:17 Eos # 0.1 K/mm3 (0.0-0.4) 11/24/18 03:17 Baso # 0.1 K/mm3 (0.0-0.1) 11/24/18 03:17 Seg Neutrophils % 64.7 % (40.0-70.0) 11/24/18 03:17 Seg Neutrophils # 3.1 K/mm3 (1.8-7.7) 11/24/18 03:17 Sodium 137 mmol/L (137-145) 11/24/18 03:17 Potassium 4.2 mmol/L (3.6-5.0) 11/24/18 03:17 Chloride 103.4 mmol/L (98-107) 11/24/18 03:17 Carbon Dioxide 17 mmol/L (22-30) L 11/24/18 03:17 Anion Gap 21 mmol/L 11/24/18 03:17 BUN 18 mg/dL (9-20) 11/24/18 03:17 Creatinine 1.9 mg/dL (0.8-1.5) H 11/24/18 03:17 Estimated GFR 44 ml/min 11/24/18 03:17 BUN/Creatinine Ratio 9 % 11/24/18 03:17 Glucose 42 mg/dL (75-100) L 11/24/18 03:17 POC Glucose 63 (70-105) L 11/25/18 10:47 Hemoglobin A1c 7.1 % (4-6) H 11/24/18 03:17 Calcium 8.4 mg/dL (8.4-10.2) 11/24/18 03:17 Troponin T 0.026 ng/mL (0.00-0.029) 11/24/18 17:02 NT-Pro-B Natriuret Pep 9449 pg/mL (0-900) H 11/23/18 22:59 Triglycerides 58 mg/dL (2-149) 11/24/18 03:17 Cholesterol 97 mg/dL (50-199) 11/24/18 03:17 LDL Cholesterol Direct 45 mg/dL (50-130) L 11/24/18 03:17 HDL Cholesterol 45 mg/dL (40-59) 11/24/18 03:17 Cholesterol/HDL Ratio 2.15 % 11/24/18 03:17 Active Medications - Current Medications Current Medications: Generic Name Dose Route Start Last Admin Trade Name Freq PRN Reason Stop Dose Admin Acetaminophen 650 mg 11/24/18 02:36 11/24/18 09:24 Tylenol PO 650 mg Q4H PRN Administration Pain MILD(1-3)/Fever >100.5/JONES Aspirin 81 mg 11/24/18 10:00 11/25/18 11:04 Baby Aspirin PO 81 mg DAILY SMITHA Administration Carvedilol 3.125 mg 11/24/18 10:00 11/25/18 11:05 Coreg PO 3.125 mg BID SMITHA Administration Dextrose 50 ml 11/24/18 06:41 D50w (25gm) Syringe IV PRN PRN Hypoglycemia Furosemide 40 mg 11/24/18 06:00 11/25/18 05:28 Lasix IV 40 mg BID@0600,1800 SMITHA Administration Glipizide 10 mg 11/24/18 08:00 11/25/18 11:04 Glucotrol Xl PO 10 mg QDDIAB SMITHA Administration Hydralazine HCl 10 mg 11/24/18 02:36 Apresoline IV Q6HR PRN FOR SBP > target Insulin Human Lispro 0 unit 11/24/18 07:30 11/25/18 11:06 Humalog SUB-Q Not Given ACHS [facility] Protocol Losartan Potassium 100 mg 11/24/18 10:00 11/25/18 11:05 Cozaar PO 100 mg QDAY SMITHA Administration Nifedipine 60 mg 11/24/18 14:00 11/25/18 11:05 Procardia Xl PO 60 mg QDAY SMITHA Administration Nitroglycerin 0.5 inch 11/24/18 06:00 11/25/18 05:28 Nitro-Bid 2% TP 0.5 inch QIDNTG SMITHA Administration Protocol Ondansetron HCl 4 mg 11/24/18 02:36 Zofran IV Q8H PRN Nausea And Vomiting Pravastatin Sodium 40 mg 11/24/18 22:00 11/24/18 21:57 Pravachol PO 40 mg QHS SMITHA Administration Senna 17.2 mg 11/25/18 09:30 11/25/18 11:09 Senokot PO 17.2 mg QHS SMITHA Administration Sodium Chloride 10 ml 11/24/18 10:00 11/25/18 11:06 Sodium Chloride Flush Syringe 10 Ml IV 10 ml BID SMITHA Administration Sodium Chloride 10 ml 11/24/18 02:36 Sodium Chloride Flush Syringe 10 Ml IV PRN PRN LINE FLUSH Nutrition/Malnutrition Assess - Dietary Evaluation Nutrition/Malnutrition Findings: Nutrition Notes Start: 11/24/18 15:52 Freq: Status: Active Protocol: Document 11/24/18 15:52 RM (Rec: 11/24/18 15:57 RM [id number]) Nutrition Notes Need for Assessment generated from: software developer consultant Initial or Follow up Assessment Current Diagnosis Diabetes,Hypertension,Heart Failure Other Pertinent Diagnosis L lopez wound Current Diet Cardiac Labs/Tests Reviewed Pertinent Medications Lasix Height 5 ft 1 in Weight 74.8 kg [place] Body Weight (kg) 50.90 BMI 31.1 Subjective/Other Information Screened for skin risk. Obi 21 points. Noted L lopez wound in record. Pt not in room at time of visit. Burn Absent Trauma Absent #1 Nutrition Diagnosis Increased nutrient needs ( specify in comment below) Comments: protein needs Etiology wound healing As Evidenced by Signs and Symptoms L lopez wound Is patient on ventilator? No Is Patient Ambulatory and/or Out of Bed No REE-(Hutchinson-St. Jeor-confined to bed) 1704.612 Kcal/Kg value to use for calculation 19 Approximate Energy Requirements Using 1421 kcal/Kg Calculation Used for Recommendations Kcal/kg Additional Notes Protein Needs: 76-95g (1.2-1. 5g/kg 63kg adjBW) Fluid Needs: 1 ml/kcal Nutrition Intervention Change Diet Order: Cardiac/Consistent CHO Add Supplement/Snack (indicate name/kcal Glucerna 1 daily /protein ) Provides kCal: 220 Provides Protein (gm) 10 Goal #1 Meet at least 75% of calorie and protein needs via PO and ONS intakes Anticipated Discharge Needs: Cardiac/Consistent CHO Follow-Up By: 11/28/18 Additional Comments Follow for PO and ONS intakes
[2018-11-25] MEDS: PRAVACHOL PO SCH (21:47)
[2018-11-25] MEDS ORDERED: BENADRYL PO PRN (22:35)
[2018-11-26] MEDS: LASIX IV SCH (05:38)
[2018-11-26] MEDS: NITRO-BID 2% TP SCH ×2 (05:57→10:14)
[2018-11-26] MEDS: PROCARDIA XL PO SCH (10:13)
[2018-11-26] MEDS: BABY ASPIRIN PO SCH (10:13)
[2018-11-26] MEDS ORDERED: CEPHULAC PO PRN (10:13)
[2018-11-26] MEDS: HumaLOG SUB-Q SCH (10:13)
[2018-11-26] MEDS: COREG PO SCH (10:13)
[2018-11-26] MEDS: GLUCOTROL XL PO SCH (10:14)
[2018-11-26] MEDS: COZAAR PO SCH (10:14)
[2018-11-26] MEDS: SODIUM CHLORIDE FLUSH SYRINGE 10 ML IV SCH (10:16)
[2018-11-26 10:46] VITALS: BP 165/86
--- NOTE | 2018-11-26 10:56 | Discharge Summary ---
Providers - Providers Date of Admission: 11/24/18 02:36 Attending physician: LYNETTE DENG MD 11/24/18 Consult to Cardiac Rehabilitation [CONS] Routine Reason For Exam: Phase I 11/24/18 05:57 Consult to Physician [CONS] Routine Comment: Consulting Provider: CARMELA GEORGE Physician Instructions: Reason For Exam: [facility] Primary care physician: [facility], Hospitalization Reason for admission: CHEST PAIN Condition: Stable Hospital course: 63-year-old male with PMHx CHF, DM type II, hypertension, who presents to the ER for complaints of chest pain and shortness of breath. Patient states that the symptoms has being going on and off for a few days, he woke up this morning with chest pain and difficulty breathing, the symptoms continues throughout the day patient states that the pain is located in his left substernal area, radiates to his neck and the left arm, associated with severe dyspnea, patient also complains of pain and swelling on he legs, he denies prior history of [place], denied prior similar chest pain, denies palpitation, denied diaphoresis, denies nausea, denies vomiting, denies fever or chills. In the ER patient's blood pressure was 188/116 his creatinine was 1.7, his blood sugar was 61, EKG should no BLAYNE [place] criteria, cardiac enzymes were negative, patient chest x-ray showed no acute infiltrates, he is BNP level was 9449 patient's was admitted for chest pain and further evaluation presenting symptoms. Patient had stress test which was negative. He was noted to have congestive hea rt failure and started on diuresis. He received counselling on fluid restriction. 1. Atypical Chest pain- Secondary CHF 2. Acute dyspnea 3. Acute on chronic combined systolic and diastolic heart failure with EF of 15-25% 4. Accelerated hypertension 5. DM type II 6. Tobacco use disorder 7. Constipation Disposition: [id number]/[place]-06 HOME UNDER HOME [facility] Time spent for discharge: 35 MINS Core Measure Documentation - Palliative Care Palliative Care/ Comfort Measures: Not Applicable - Core Measures Any of the following diagnoses?: heart failure - Heart Failure Discharge Requirements BLAYNE/ARB for LVSD if EF <40%: Yes Beta yousif at discharge: Yes Exam - Physical Exam Narrative exam: Constitutional: Well-nourished well-developed. In no distress Head: Normocephalic atraumatic Eyes: Pupils are equal round and reactive to light Nose: No enlarged turbinates, no septal deviation. Mouth: Moist mucous membranes. Neck: Supple no thyromegaly. No bruit. No JVD Heart: Regular rate and rhythm, S1-S2 normal. No rubs murmurs or gallop Lungs: Clear to auscultation bilaterally. no rales or rhonchi Abdomen: Soft, nontender. Bowel sound are present. Extremities: 1+ edema, no cyanosis, no clubbing. Neuro: Alert oriented Oriented x3. No focal sensory or motor deficit. Skin: Multiple skin rashes with hyperpigmented spots Musculoskeletal system: No joint pain or swelling Hematological: No petechia or subcutanous hemorrhages. Psychiatry: Euthymic. Calm. - Constitutional Vitals: Temp Pulse Resp BP Pulse Ox 97.9 F 75 20 165/86 100 11/26/18 10:43 11/26/18 10:43 11/26/18 10:43 11/26/18 10:43 11/26/18 10:43 Plan Activity: advance as tolerated, fall precautions Diet: low fat Special Instructions: record daily weights, record daily BP diary Follow up with: MAGDA DAMIAN MD [Primary Care Provider] - 3-5 Days CONG VALDES MD [Staff Physician] - 7 Days ROMULO BHATTI MD [Staff Physician] - 7 Days Prescriptions: Sennosides Tab [Senokot] 17.2 mg PO QHS #30 tablet Carvedilol [Coreg] 3.125 mg PO BID #60 tablet Losartan [Cozaar] 100 mg PO QDAY #30 tablet Torsemide [Demadex] 40 mg PO DAILY #60 tablet NIFEdipine XL [Procardia Xl] 60 mg PO QDAY #30 tablet
[2018-11-26] MEDS ORDERED: COLACE PO SCH (11:00)
--- NOTE | 2018-11-26 11:13 | Progress Note ---
Assessment and Plan 1. Acute decompensated chronic combined systolic and diastolic heart failure. 2. Dilated cardiomyopathy left ventricular ejection fraction 15-20% 3. Chronic kidney disease 4. Essential hypertension 5. Type 2 diabetes mellitus Plan. Cardiac-hughes stable stress MPI revealed no ischemia Continue medical therapy and follow-up in the office on discharge Subjective Date of service: 11/26/18 Principal diagnosis: chest pain, shortness of breath. Interval history: No cardiac symptoms Objective Vital Signs Temp Pulse Pulse Resp BP Pulse Ox 11/26/18 10:43 97.9 F 75 20 165/86 100 11/26/18 10:00 75 18 98 11/26/18 07:27 97.9 F 71 20 153/82 95 11/26/18 05:57 98.0 F 67 18 147/77 99 11/26/18 00:28 98.1 F 72 20 140/80 98 11/25/18 22:05 69 16 92 11/25/18 21:47 69 131/72 11/25/18 20:15 97.6 F 69 20 131/72 97 11/25/18 19:27 69 11/25/18 15:29 98.2 F 66 20 135/74 94 - Physical Examination General: No Apparent Distress HEENT: Positive: PERRL Neck: Positive: trachea midline. Negative: JVD/HJR Cardiac: Positive: Regular Rate, S1/S2, S3, PMI, Dilated, Laterally Displaced Lungs: Positive: clear to auscultation, No Wheeze, Rales, Rhonchi Neuro: Positive: Grossly Intact Abdomen: Positive: Soft Skin: Positive: Clear Extremities: Absent: edema - Telemetry EKG Rhythm: Sinus Rhythm
== END 2018-11-26 13:29 | disposition home or self-care (01) | DRG 291 ==
LOC: ED 22:11 → 4A 11-24 02:36
PROVIDERS: ADMIT Internal Medicine; ATTEND Internal Medicine
DX: I13.0 Hypertensive heart and chronic kidney disease with heart failure and stage 1 through stage 4 chronic kidney disease, or unspecified chronic kidney disease (principal); I50.43 Acute on chronic combined systolic (congestive) and diastolic (congestive) heart failure; N17.9 Acute kidney failure, unspecified; F17.210 Nicotine dependence, cigarettes, uncomplicated; Z79.84 Long term (current) use of oral hypoglycemic drugs; E11.22 Type 2 diabetes mellitus with diabetic chronic kidney disease; K59.00 Constipation, unspecified; N18.9 Chronic kidney disease, unspecified; I42.0 Dilated cardiomyopathy; Z88.6 Allergy status to analgesic agent; Z79.82 Long term (current) use of aspirin; Z71.6 Tobacco abuse counseling
CPT/HCPCS: 36415; 71046; 78452; 80048; 80061; 82962; 83036; 83880; 84484; 85025; 90686; 93005; 93010; 93017; 93306; 96374; 96375; 99285; 99406; G0378; A9270-GY; A9502; J1650; J1940; J2270; J2405; J2785

== ENCOUNTER 2019-08-11 14:12 | Inpatient (IN) | payer OTHER ==
--- NOTE | 2019-08-11 14:21 | Event Note ---
ED Screening Note ED Screening Note: edema in the testicles and painful that began two days ago never had before difficulty urination no dysuria PMHx HTN, DM, CHF states when he has heart failure exacerbation he usually has swelling in the abdomen This initial assessment/diagnostic orders/clinical plan/treatment(s) is/are subject to change based on patients health status, clinical progression and re- assessment by fellow clinical providers in the ED. Further treatment and workup at subsequent clinical providers discretion. Patient/guardian urged not to elope from the ED as their condition may be serious if not clinically assessed and managed. Initial orders include: labs, UA, MAIN ED evaluation
--- NOTE | 2019-08-11 15:25 | XRay Report ---
CHEST 2 VIEWS INDICATION: SOB, hx of CHF. COMPARISON: 11/23/2018 FINDINGS: Support devices: None. Heart: Stable mild cardiomegaly Lungs/pleura: No acute air space or interstitial disease. No pneumothorax. Additional findings: None. IMPRESSION: Mild cardiomegaly. Lungs clear. Signer Name: Lion Carney Jr, MD Signed: 08/11/2019 3:21 PM Workstation Name: [id number]
[2019-08-11] MEDS ORDERED: FUROSEMIDE 40 MG/4 ML INJ IV ONE ×2 (15:28→15:29)
[2019-08-11] MEDS ORDERED: cloNIDine 0.1 MG TAB PO ONE (15:29)
--- NOTE | 2019-08-11 15:34 | Emergency Department Report ---
ED Male HPI - General Chief complaint: Urogenital-Male Stated complaint: PRIVATE AREA SWOLLEN Time Seen by Provider: 08/11/19 14:17 Source: patient, family Mode of arrival: Ambulatory Limitations: No Limitations - History of Present Illness Initial comments: 64-year-old male with a past medical history of diabetes, CHF EF of 15-25%, and hypertension presents to the hospital complains of swelling to his scrotal and penis and scrotum 2 days. Patient states the skin in the areas also irritated. He complains of some increased shortness breath the last 2 days. Has chronic two-pillow orthopnea and occasional PND. He has a dry cough. He denies fever or chest pain. He has been compliant with his medications including furosemide 40 mg daily although he has not taken any of his meds today. He states he has been provided a fluid restriction but is unlikely compliant since he does not keep close track of his fluid intake. No complaints of fever or dysuria. PMD: Dr. Kamara cardiology group: [facility] - Related Data Home Medications Medication Instructions Recorded Confirmed Last Taken Aspirin 81 mg PO DAILY 11/23/18 11/23/18 11/23/18 Simvastatin 20 mg PO DAILY 11/23/18 11/23/18 11/23/18 glipiZIDE XL [Glucotrol Xl] 10 mg PO DAILY 11/23/18 11/23/18 11/23/18 Previous Rx's Medication Instructions Recorded Last Taken Type Losartan [Cozaar] 100 mg PO QDAY #30 tablet 11/26/18 Unknown Rx NIFEdipine XL [Procardia Xl] 60 mg PO QDAY #30 tablet 11/26/18 Unknown Rx Sennosides Tab [Senokot] 17.2 mg PO QHS #30 tablet 11/26/18 Unknown Rx Torsemide [Demadex] 40 mg PO DAILY #60 tablet 11/26/18 Unknown Rx carvediloL [Coreg] 3.125 mg PO BID #60 tablet 11/26/18 Unknown Rx Allergies Allergy/AdvReac Type Severity Reaction Status Date / Time lisinopril Allergy Unknown Verified 08/11/19 14:13 ED Review of Systems ROS: Stated complaint: PRIVATE AREA SWOLLEN Other details as noted in HPI Comment: All other systems reviewed and negative ED Past Medical Hx - Past Medical History Hx Hypertension: Yes Hx Congestive Heart Failure: Yes (diastolic and systolic EF 15-25% echo11/24) Hx Diabetes: Yes - Social History Smoking Status: Former Smoker Substance Use Type: None - Medications Home Medications: Home Medications Medication Instructions Recorded Confirmed Last Taken Type Aspirin 81 mg PO DAILY 11/23/18 11/23/18 11/23/18 History Simvastatin 20 mg PO DAILY 11/23/18 11/23/18 11/23/18 History glipiZIDE XL [Glucotrol Xl] 10 mg PO DAILY 11/23/18 11/23/18 11/23/18 History Losartan [Cozaar] 100 mg PO QDAY #30 tablet 11/26/18 Unknown Rx NIFEdipine XL [Procardia Xl] 60 mg PO QDAY #30 tablet 11/26/18 Unknown Rx Sennosides Tab [Senokot] 17.2 mg PO QHS #30 tablet 11/26/18 Unknown Rx Torsemide [Demadex] 40 mg PO DAILY #60 tablet 11/26/18 Unknown Rx carvediloL [Coreg] 3.125 mg PO BID #60 tablet 11/26/18 Unknown Rx ED Physical Exam - General Limitations: No Limitations - Other Other exam information: General: No acute distress Head: Atraumatic Eyes: normal appearance ENT: Moist mucous membranes Neck: Normal appearance, no midline tenderness Chest: Clear to auscultation bilaterally CV: Regular rate and rhythm Abdomen: Soft, normal bowel sounds, nontender, nondistended, no rebound or guarding : Diffuse penile and scrotal swelling. No scrotal rash, ulceration, or drainage. Mild tenderness to palpation Back: Normal inspection Extremity: Normal inspection infection, full range of motion Neuro: Alert O x 3, no facial asymmetry, speech clear, no gross motor sensory deficit Psych: Appropriate behavior Skin: Hyperpigmented rash to lower abdomen diffuse hyperpigmented macules on skin surface area ED Course Vital Signs 08/11/19 08/11/19 08/11/19 14:18 15:15 15:30 Temperature 97.3 F L Pulse Rate 95 H 80 83 Respiratory 22 16 33 H Rate Blood Pressure 195/119 189/104 193/111 O2 Sat by Pulse 99 97 98 Oximetry 08/11/19 08/11/19 08/11/19 15:33 16:07 16:15 Temperature 97.7 F Pulse Rate 79 78 Respiratory 13 Rate Blood Pressure 193/111 183/103 O2 Sat by Pulse 100 Oximetry 08/11/19 08/11/19 08/11/19 16:30 16:45 17:00 Temperature Pulse Rate 80 86 94 H Respiratory 19 26 H 25 H Rate Blood Pressure 199/107 196/113 190/123 O2 Sat by Pulse 99 100 Oximetry 08/11/19 08/11/19 08/11/19 17:15 17:29 17:30 Temperature Pulse Rate 80 83 89 Respiratory 29 H 21 Rate Blood Pressure 198/105 193/111 193/111 O2 Sat by Pulse 99 95 Oximetry 08/11/19 08/11/19 08/11/19 17:45 18:00 18:15 Temperature Pulse Rate 82 81 79 Respiratory 19 20 21 Rate Blood Pressure 210/117 199/105 192/108 O2 Sat by Pulse 96 98 100 Oximetry 08/11/19 08/11/19 08/11/19 18:30 18:45 19:00 Temperature Pulse Rate 93 H 86 87 Respiratory 17 21 18 Rate Blood Pressure 178/124 202/153 192/111 O2 Sat by Pulse 98 87 93 Oximetry 08/11/19 08/11/19 19:04 19:15 Temperature Pulse Rate 83 79 Respiratory 14 Rate Blood Pressure 193/111 168/105 O2 Sat by Pulse 99 Oximetry ED Medical Decision Making - Lab Data Result diagrams: 08/11/19 14:57 08/11/19 14:57 Lab Results 08/11/19 08/11/19 Range/Units 14:57 14:57 WBC 5.0 (4.5-11.0) K/mm3 RBC 5.59 H (3.65-5.03) M/mm3 Hgb 13.7 (11.8-15.2) gm/dl Hct 44.0 (35.5-45.6) % MCV 79 L (84-94) fl MCH 25 L (28-32) pg MCHC 31 L (32-34) % RDW 21.2 H (13.2-15.2) % Plt Count 203 (140-440) K/mm3 Sodium 139 (137-145) mmol/L Potassium 4.8 (3.6-5.0) mmol/L Chloride 110.4 H (98-107) mmol/L Carbon Dioxide 19 L (22-30) mmol/L Anion Gap 14 mmol/L BUN 30 H (9-20) mg/dL Creatinine 2.0 H (0.8-1.5) mg/dL Estimated GFR 41 ml/min BUN/Creatinine Ratio 15 % Glucose 199 H (75-100) mg/dL Calcium 8.6 (8.4-10.2) mg/dL Total Bilirubin 0.60 (0.1-1.2) mg/dL AST 37 (5-40) units/L ALT 23 (7-56) units/L Alkaline Phosphatase 149 H (35-129) units/L NT-Pro-B Natriuret Pep 70599 H (0-900) pg/mL Total Protein 7.6 (6.3-8.2) g/dL Albumin 2.7 L (3.9-5) g/dL Albumin/Globulin Ratio 0.6 % - EKG Data -: EKG Interpreted by Ut EKG shows normal: sinus rhythm, ST-T waves (lat t wave inv) Rate: normal - Radiology Data Radiology results: report reviewed CHEST 2 VIEWS INDICATION: SOB, hx of CHF. COMPARISON: 11/23/2018 FINDINGS: Support devices: None. Heart: Stable mild cardiomegaly Lungs/pleura: No acute air space or interstitial disease. No pneumothorax. Additional findings: None. IMPRESSION: Mild cardiomegaly. Lungs clear. Testicular US report reviewed - Medical Decision Making Pt Likely presenting with scrotal and penile edema secondary due to decompensated heart failure. This time no signs of pulmonary edema. Blood pressures uncontrolled. He was provided nifedipine and Lasix in the ED. Nitroglycerin paste ordered for additional blood pressure management in the setting of heart failure. Testicular ultrasound shows mild generalized but edema with nonspecific high resistant arterial flow to both testicles. Low suspicion for torsion since symptoms were not suddenonset or unilateral. - Differential Diagnosis CHF, orchitis, epididymitis, volume overload Critical Care Time: No Critical care attestation.: If time is entered above; I have spent that time in minutes in the direct care of this critically ill patient, excluding procedure time. ED Disposition Clinical Impression: Decompensated heart failure, Genital edema, male, Uncontrolled hypertension Disposition: OP ADMIT IP TO THIS HOSP Is pt being admited?: Yes Condition: Stable Time of Disposition: 18:16 (Dr Mcdaniel/hosp)
[2019-08-11 15:40] LABS: Hemoglobin 13.7 gm/dl (11.8-15.2); Mean Corpuscular HGB Conc 31 % (32-34); Mean Corpuscular Volume 79 fl (84-94); Platelet Count 203 K/mm3 (140-440); Red Blood Count 5.59 M/mm3 (3.65-5.03)
[2019-08-11 15:51] LABS: Albumin 2.7 g/dL (3.9-5); Calcium 8.6 mg/dL (8.4-10.2); Red Cell Distribution Width 21.2 % (13.2-15.2)
[2019-08-11] MEDS ORDERED: NIFEdipine XL 60 MG TAB PO ONE (16:00)
--- NOTE | 2019-08-11 17:36 | Ultrasound Report ---
ULTRASOUND SCROTUM INDICATION: Bilateral scrotal swelling. COMPARISON None available. FINDINGS: RIGHT TESTICLE: Normal in size, measuring 3.4 x 2.5 x 2.4 cm, with an expected appearance. High resis tance color Doppler flow is noted throughout. RIGHT EPIDIDYMIS: No significant abnormality. LEFT TESTICLE: Normal in size, measuring 3.5 x 2.4 x 2.3 cm, with expected appearance. High resistanc e color Doppler flow is noted throughout. LEFT EPIDIDYMIS: There is a simple appearing cyst measuring 7 mm. HYDROCELE: None seen. VARICOCELE: None seen. ADDITIONAL FINDINGS: Marked generalized scrotal edema is present. IMPRESSION: 1. Marked generalized scrotal edema. 2. Nonspecific high resistance arterial flow in the testicles. This finding can be seen with incomple te torsion. Please correlate with the clinical findings. Signer Name: Elia Nixon MD Signed: 08/11/2019 4:51 PM Workstation Name: [id number]
[2019-08-11] MEDS ORDERED: NITROGLYCERIN 2% OINT 1 GM TP ONE (18:11)
[2019-08-11 18:51] LABS: Bacteria,Urine 1+ /HPF (Negative); Bilirubin,Urine NEG (Negative); Blood,Urine SM (Negative); Color,Urine Yellow (Yellow); Hyaline Casts,Urine 3 /LPF; Mucus,Urine FEW /HPF; Urobilinogen,Urine < 2.0 mg/dL (<2.0)
[2019-08-11] MEDS ORDERED: HYDROmorphone 1 MG/1 ML INJ IV PRN (20:03)
[2019-08-11] MEDS ORDERED: oxyCODONE /ACETAMINOPHEN 5-325MG TAB PO PRN (20:03)
[2019-08-11] MEDS ORDERED: ACETAMINOPHEN 325 MG TAB PO PRN ×2 (20:03→20:05)
[2019-08-11] MEDS ORDERED: ONDANSETRON 4 MG/2 ML INJ IV PRN ×2 (20:03→20:05)
[2019-08-11] MEDS ORDERED: NON-FORMULARY EACH (Losartan [Cozaar] 100 MG) PO SCH (20:15)
[2019-08-11] MEDS ORDERED: NON-FORMULARY EACH (Simvastatin [Simvastatin] 20 MG) PO SCH (20:15)
--- NOTE | 2019-08-11 20:21 | History and Physical Report ---
History of Present Illness Date of examination: 08/11/19 Date of admission: 08/11/19 18:18 Chief complaint: Shortness of breath on minimal exertion for 2 days Swelling of the scrotum and penis which is severe History of present illness: 64-year-old -[place]ish male with a history of severe CHF with low ejection fraction of 15-20%, type 2 diabetes and hypertension and hyperlipidemia comes in for shortness of breath with minimal exertion for the last 2 days. Also severe orthopnea. Unable to lie flat. PND attacks in the nighttime. Also severe scrotal and penile swelling. Patient says he has been compliant with his diuretics. Patient was recently discharged in November 2018. Echocardiogram done at that time showed ejection fraction of 15-20% and global left ventricular systolic dysfunction. Patient has class IV NYHA symptoms now. No chest pain. No palpitations. No diaphoresis. Patient states he is compliant with his fluid intake. No recent travel. Discharge summary from November 2018 63-year-old male with PMHx CHF, DM type II, hypertension, who presents to the ER for complaints of chest pain and shortness of breath. Patient states that the symptoms has being going on and off for a few days, he woke up this morning with chest pain and difficulty breathing, the symptoms continues throughout the day patient states that the pain is located in his left substernal area, radiates to his neck and the left arm, associated with severe dyspnea, patient also complains of pain and swelling on he legs, he denies prior history of MS, denied prior similar chest pain, denies palpitation, denied diaphoresis, denies nausea, denies vomiting, denies fever or chills. In the ER patient's blood pressure was 188/116 his creatinine was 1.7, his blood sugar was 61, EKG should no BLAYNE MS criteria, cardiac enzymes were negative, patient chest x-ray showed no acute infiltrates, he is BNP level was 9449 patient's was admitted for chest pain and further evaluation presenting symptoms. Patient had stress test which was negative. He was noted to have congestive heart failure and started on diuresis. He received counselling on fluid restriction. 1. Atypical Chest pain- Secondary CHF 2. Acute dyspnea 3. Acute on chronic combined systolic and diastolic heart failure with EF of 15-25% 4. Accelerated hypertension 5. DM type II 6. Tobacco use disorder 7. Constipation Past Medical History Hypertension: Yes Congestive Heart Failure: Yes (diastolic and systolic EF 15-25% echo11/24) Diabetes: Yes Surgical History N/a Social History Smoking Status: Former Smoker Substance Use Type: None Family History Htn Medications Home Medications: Home Medications Medication Instructions Recorded Confirmed Last Taken Type Aspirin 81 mg PO DAILY 11/23/18 11/23/18 11/23/18 History Simvastatin 20 mg PO DAILY 11/23/18 11/23/18 11/23/18 History glipiZIDE XL [Glucotrol Xl] 10 mg PO DAILY 11/23/18 11/23/18 11/23/18 History Losartan [Cozaar] 100 mg PO QDAY #30 tablet 11/26/18 Unknown Rx NIFEdipine XL [Procardia Xl] 60 mg PO QDAY #30 tablet 11/26/18 Unknown Rx Sennosides Tab [Senokot] 17.2 mg PO QHS #30 tablet 11/26/18 Unknown Rx Torsemide [Demadex] 40 mg PO DAILY #60 tablet 11/26/18 Unknown Rx carvediloL [Coreg] 3.125 mg PO BID #60 tablet 11/26/18 Unknown Rx Review of Systems ROS: Stated complaint: Swelling of the penis and scrotum No pedal edema Orthopnea present Shortness of breath on minimal exertion consistent with class IV NYHA symptoms Other details as noted in HPI Comment: All other 14 systems reviewed and negative Medications and Allergies Allergies Allergy/AdvReac Type Severity Reaction Status Date / Time lisinopril Allergy Unknown Verified 08/11/19 14:13 Home Medications Medication Instructions Recorded Confirmed Last Taken Type Aspirin 81 mg PO DAILY 11/23/18 11/23/18 11/23/18 History Simvastatin 20 mg PO DAILY 11/23/18 11/23/18 11/23/18 History glipiZIDE XL [Glucotrol Xl] 10 mg PO DAILY 11/23/18 11/23/18 11/23/18 History Losartan [Cozaar] 100 mg PO QDAY #30 tablet 11/26/18 Unknown Rx NIFEdipine XL [Procardia Xl] 60 mg PO QDAY #30 tablet 11/26/18 Unknown Rx Sennosides Tab [Senokot] 17.2 mg PO QHS #30 tablet 11/26/18 Unknown Rx Torsemide [Demadex] 40 mg PO DAILY #60 tablet 11/26/18 Unknown Rx carvediloL [Coreg] 3.125 mg PO BID #60 tablet 11/26/18 Unknown Rx Active Meds: Active Medications Acetaminophen (Tylenol) 650 mg PO Q4H PRN PRN Reason: Pain MILD(1-3)/Fever >100.5/JONES Aspirin (Baby Aspirin) 81 mg PO DAILY SMITHA Carvedilol (Coreg) 3.125 mg PO BID SMITHA Famotidine (Pepcid) 20 mg PO BID SMITHA Furosemide (Lasix) 40 mg IV 0600,1800 SMITHA Glipizide (Glucotrol Xl) 10 mg PO DAILY SMITHA Hydromorphone HCl (Dilaudid) 0.5 mg IV Q3H PRN PRN Reason: Pain , Severe (7-10) Miscellaneous Medication (Losartan [Cozaar]) 100 mg PO QDAY SMITHA Miscellaneous Medication (Simvastatin [Simvastatin]) 20 mg PO DAILY SMITHA Nifedipine (Procardia Xl) 60 mg PO QDAY SMITHA Ondansetron HCl (Zofran) 4 mg IV Q8H PRN PRN Reason: Nausea And Vomiting Ondansetron HCl (Zofran) 4 mg IV Q8H PRN PRN Reason: Nausea And Vomiting Oxycodone/Acetaminophen (Percocet 5/325) 1 tab PO Q6H PRN PRN Reason: Pain, Moderate (4-6) Potassium Chloride (K-Dur) 20 meq PO BID SMITHA Senna (Senokot) 17.2 mg PO QHS SMITHA Sodium Chloride (Sodium Chloride Flush Syringe 10 Ml) 10 ml IV BID SMITHA Sodium Chloride (Sodium Chloride Flush Syringe 10 Ml) 10 ml IV PRN PRN PRN Reason: LINE FLUSH Exam - Constitutional Vitals: Temp Pulse Resp BP Pulse Ox 97.7 F 79 14 168/105 99 08/11/19 15:33 08/11/19 19:15 08/11/19 19:15 08/11/19 19:15 08/11/19 19:15 General appearance: Present: mild distress - EENT Eyes: Present: PERRL ENT: hearing intact, clear oral mucosa - Neck Neck: Present: supple, normal ROM - Respiratory Respiratory effort: normal Respiratory: bilateral: CTA - Cardiovascular Heart rate: 88 Rhythm: regular Heart Sounds: Present: S1 & S2. Absent: rub, click - Extremities Extremities: no ischemia, pulses intact, pulses symmetrical, No edema Peripheral Pulses: within normal limits - Abdominal General gastrointestinal: Present: soft, non-tender, non-distended, normal bowel sounds Male genitourinary: Present: penile edema, scrotal edema - Rectal Rectal Exam: deferred - Integumentary Integumentary: Present: clear, warm, dry - Musculoskeletal Musculoskeletal: gait normal, strength equal bilaterally - Psychiatric Psychiatric: appropriate mood/affect, intact judgment & insight - Neurologic Neurologic: CNII-XII intact, moves all extremities - Allied Health Allied health notes reviewed: nursing, case management Results - Labs CBC & Chem 7: 08/11/19 14:57 08/11/19 14:57 Labs: Laboratory Last Values WBC 5.0 K/mm3 (4.5-11.0) 08/11/19 14:57 RBC 5.59 M/mm3 (3.65-5.03) H 08/11/19 14:57 Hgb 13.7 gm/dl (11.8-15.2) 08/11/19 14:57 Hct 44.0 % (35.5-45.6) 08/11/19 14:57 MCV 79 fl (84-94) L 08/11/19 14:57 MCH 25 pg (28-32) L 08/11/19 14:57 MCHC 31 % (32-34) L 08/11/19 14:57 RDW 21.2 % (13.2-15.2) H 08/11/19 14:57 Plt Count 203 K/mm3 (140-440) 08/11/19 14:57 Sodium 139 mmol/L (137-145) 08/11/19 14:57 Potassium 4.8 mmol/L (3.6-5.0) 08/11/19 14:57 Chloride 110.4 mmol/L (98-107) H 08/11/19 14:57 Carbon Dioxide 19 mmol/L (22-30) L 08/11/19 14:57 Anion Gap 14 mmol/L 08/11/19 14:57 BUN 30 mg/dL (9-20) H 08/11/19 14:57 Creatinine 2.0 mg/dL (0.8-1.5) H 08/11/19 14:57 Estimated GFR 41 ml/min 08/11/19 14:57 BUN/Creatinine Ratio 15 % 08/11/19 14:57 Glucose 199 mg/dL (75-100) H 08/11/19 14:57 Calcium 8.6 mg/dL (8.4-10.2) 08/11/19 14:57 Total Bilirubin 0.60 mg/dL (0.1-1.2) 08/11/19 14:57 AST 37 units/L (5-40) 08/11/19 14:57 ALT 23 units/L (7-56) 08/11/19 14:57 Alkaline Phosphatase 149 units/L (35-129) H 08/11/19 14:57 NT-Pro-B Natriuret Pep 19494 pg/mL (0-900) H 08/11/19 14:57 Total Protein 7.6 g/dL (6.3-8.2) 08/11/19 14:57 Albumin 2.7 g/dL (3.9-5) L 08/11/19 14:57 Albumin/Globulin Ratio 0.6 % 08/11/19 14:57 Urine Color Yellow (Yellow) 08/11/19 18:03 Urine Turbidity Clear (Clear) 08/11/19 18:03 Urine pH 5.0 (5.0-7.0) 08/11/19 18:03 Ur Specific [place] 1.011 (1.003-1.030) 08/11/19 18:03 Urine Protein 100 mg/dl mg/dL (Negative) 08/11/19 18:03 Urine Glucose (UA) 50 mg/dL (Negative) 08/11/19 18:03 Urine Ketones Neg mg/dL (Negative) 08/11/19 18:03 Urine Blood Sm (Negative) 08/11/19 18:03 Urine Nitrite Neg (Negative) 08/11/19 18:03 Urine Bilirubin Neg (Negative) 08/11/19 18:03 Urine Urobilinogen < 2.0 mg/dL (<2.0) 08/11/19 18:03 Ur Leukocyte Esterase Neg (Negative) 08/11/19 18:03 Urine WBC (Auto) 1.0 /HPF (0.0-6.0) 08/11/19 18:03 Urine RBC (Auto) 4.0 /HPF (0.0-6.0) 08/11/19 18:03 U Epithel Cells (Auto) < 1.0 /HPF (0-13.0) 08/11/19 18:03 Urine Bacteria (Auto) 1+ /HPF (Negative) 08/11/19 18:03 Hyaline Casts 3 /LPF 08/11/19 18:03 Urine Mucus Few /HPF 08/11/19 18:03 Short CBC 08/11/19 Range/Units 14:57 WBC 5.0 (4.5-11.0) K/mm3 Hgb 13.7 (11.8-15.2) gm/dl Hct 44.0 (35.5-45.6) % Plt Count 203 (140-440) K/mm3 BMP 08/11/19 14:57 Sodium 139 Potassium 4.8 Chloride 110.4 H Carbon Dioxide 19 L BUN 30 H Creatinine 2.0 H Glucose 199 H Calcium 8.6 Liver Function 08/11/19 Range/Units 14:57 Total Bilirubin 0.60 (0.1-1.2) mg/dL AST 37 (5-40) units/L ALT 23 (7-56) units/L Alkaline Phosphatase 149 H (35-129) units/L Albumin 2.7 L (3.9-5) g/dL Urine 08/11/19 Range/Units 18:03 Urine Color Yellow (Yellow) Urine pH 5.0 (5.0-7.0) Ur Specific [place] 1.011 (1.003-1.030) Urine Protein 100 mg/dl (Negative) mg/dL Urine Glucose (UA) 50 (Negative) mg/dL - Imaging and Cardiology EKG: report reviewed (sinus rhythm heart rate of 80/m, LVH) Chest x-ray: report reviewed Imaging and Cardiology: Chest x-ray IMPRESSION: Mild cardiomegaly. Lungs clear. Assessment and Plan Advance Directives: Yes (full code) VTE prophylaxis?: Chemical Plan of care discussed with patient/family: Yes - Patient Problems (1) Acute exacerbation of congestive heart failure Current Visit: Yes Status: Acute Qualifiers: Heart failure type: combined systolic and diastolic Qualified Code(s): I50.43 - Acute on chronic combined systolic (congestive) and diastolic (congestive) heart failure Plan to address problem: Patient is severely decompensated and needs admission for management of his CHF exacerbation Echocardiogram last admission during November 2018 shows ejection fraction of 15- 20% with severely depressed left ventricular systolic function.\ Patient has severely swollen scrotum and penis. Patient initiated on IV Lasix 40 mg every 12 May need milrinone drip--will defer to cardiology Daily intake and output Daily weights Repeat echocardiogram was not ordered because it was done in November 2018. Last echocardiogram showed ejection fraction of 15-20% and global left ventricular systolic function depression and four-chamber dilated cardiomyopathy (2) Hypertensive emergency Current Visit: Yes Status: Acute Plan to address problem: Home blood pressure medication started and adjusted Hydralazine 10 mg every 3 hours IV when necessary Hydralazine IV given Coreg increased from 3.125 every 12hrs to 12.5 every q12 We will add hydralazine by mouth for afterload reduction (3) Type 2 diabetes mellitus Current Visit: Yes Status: Chronic Qualifiers: Diabetes mellitus [facility] insulin use: without [facility] use Plan to address problem: Continue continue hypoglycemics Check hemoglobin A1c Moderate dose sliding scale coverage Accu-Cheks before meals and at bedtime (4) Hyperlipidemia Current Visit: Yes Status: Chronic Qualifiers: Hyperlipidemia type: mixed hyperlipidemia Qualified Code(s): E78.2 - Mixed hyperlipidemia Plan to address problem: Continue statins (5) Genital edema, male Current Visit: Yes Status: Acute Plan to address problem: No torsion Swelling should go down with the diuretics No urology consult at this point Urology consult if necessary (6) Microcytosis Current Visit: Yes Status: Acute Plan to address problem: Check for iron levels and B12 and folic acid (7) DVT prophylaxis Current Visit: Yes Status: Acute Plan to address problem: On heparin and GI prophylaxis
[2019-08-11] MEDS ORDERED: hydrALAZINE 20 MG/1 ML INJ IV PRN (20:54)
[2019-08-11] MEDS: FAMOTIDINE 10 MG TAB PO SCH (21:10)
[2019-08-11] MEDS: LOSARTAN 50 MG TAB PO SCH (21:10)
[2019-08-11] MEDS: PRAVASTATIN 40 MG TAB PO SCH (21:11)
[2019-08-11] MEDS: SENNOSIDES 8.6 MG TAB PO SCH (21:11)
[2019-08-11] MEDS: ASPIRIN 81 MG TAB CHEW PO SCH (21:12)
[2019-08-11] MEDS: carvediloL 12.5 MG TAB PO SCH (21:12)
[2019-08-11] MEDS ORDERED: FAMOTIDINE 20 MG TAB PO SCH (22:00)
[2019-08-11] MEDS ORDERED: POTASSIUM CHLORIDE ER 20 MEQ TAB PO SCH (22:00)
[2019-08-11] MEDS ORDERED: carvediloL 3.125 MG TAB PO SCH (22:00)
[2019-08-12 01:49] LABS: % Iron Saturation 11.03 %
[2019-08-12 04:17] LABS: Basophils # (Auto) 0.1 K/mm3 (0.0-0.1); Basophils % (Auto) 1.9 % (0.0-1.8); Eosinophils # (Auto) 0.1 K/mm3 (0.0-0.4); Eosinophils % (Auto) 1.3 % (0.0-4.3); Hematocrit 39.7 % (35.5-45.6); Hemoglobin 12.7 gm/dl (11.8-15.2); Lymphocytes % (Auto) 24.7 % (13.4-35.0); Mean Corpuscular HGB Conc 32 % (32-34); Mean Corpuscular Volume 78 fl (84-94); Monocytes # (Auto) 0.3 K/mm3 (0.0-0.8); Monocytes % (Auto) 7.3 % (0.0-7.3); Platelet Count 164 K/mm3 (140-440); Red Blood Count 5.12 M/mm3 (3.65-5.03)
[2019-08-12 04:30] LABS: Red Cell Distribution Width 20.3 % (13.2-15.2)
[2019-08-12 04:39] LABS: Albumin 2.5 g/dL (3.9-5); Calcium 8.4 mg/dL (8.4-10.2)
[2019-08-12] MEDS: INSULIN LISPRO 100 UNIT/ML SUB-Q SCH ×6 (05:34→22:00)
[2019-08-12] MEDS: FUROSEMIDE 40 MG/4 ML INJ IV SCH ×2 (06:13→17:18)
--- NOTE | 2019-08-12 09:07 | Consultation ---
History of Present Illness Consult date: 08/12/19 Consult reason: congestive heart failure History of present illness: 64-year-old -[place]ian male with a history of severe CHF with low ejection fraction of 15-20%, type 2 diabetes and hypertension and hyperlipidemia comes in for shortness of breath with minimal exertion for the last 2 days. Also severe orthopnea. Unable to lie flat. PND attacks in the nighttime. Also severe scrotal and penile swelling. Patient says he has been compliant with his medications; however, he is not sure if he is on diuretics or the purpose of each medication. He does know that his medications are not making him void. Echocardiogram done at that time showed ejection fraction of 15-20% and global left ventricular systolic dysfunction. Patient has class IV NYHA symptoms now. No chest pain. No palpitations. No diaphoresis. Patient states he is compliant with his fluid intake. No recent travel. Past History Past Medical History: diabetes, hypertension, other (CHF) Social history: other (history of smoking). denies: prescription drug abuse, IV drug use Medications and Allergies Allergies Allergy/AdvReac Type Severity Reaction Status Date / Time lisinopril Allergy Unknown Verified 08/11/19 14:13 Home Medications Medication Instructions Recorded Confirmed Last Taken Type Aspirin 81 mg PO DAILY 11/23/18 11/23/18 11/23/18 History Simvastatin 20 mg PO DAILY 11/23/18 11/23/18 11/23/18 History glipiZIDE XL [Glucotrol Xl] 10 mg PO DAILY 11/23/18 11/23/18 11/23/18 History Losartan [Cozaar] 100 mg PO QDAY #30 tablet 11/26/18 Unknown Rx NIFEdipine XL [Procardia Xl] 60 mg PO QDAY #30 tablet 11/26/18 Unknown Rx Sennosides Tab [Senokot] 17.2 mg PO QHS #30 tablet 11/26/18 Unknown Rx Torsemide [Demadex] 40 mg PO DAILY #60 tablet 11/26/18 Unknown Rx carvediloL [Coreg] 3.125 mg PO BID #60 tablet 11/26/18 Unknown Rx Active Meds: Active Medications Acetaminophen (Tylenol) 650 mg PO Q4H PRN PRN Reason: Pain MILD(1-3)/Fever >100.5/JONES Aspirin (Baby Aspirin) 81 mg PO DAILY COUNTS INCLUDE 234 BEDS AT THE [facility] Last Admin: 08/11/19 21:12 Dose: 81 mg Documented by: Carvedilol (Coreg) 12.5 mg PO BID COUNTS INCLUDE 234 BEDS AT THE [facility] Last Admin: 08/11/19 21:12 Dose: 12.5 mg Documented by: Famotidine (Pepcid) 10 mg PO BID COUNTS INCLUDE 234 BEDS AT THE [facility] Last Admin: 08/11/19 21:10 Dose: 10 mg Documented by: Furosemide (Lasix) 40 mg IV 0600,1800 COUNTS INCLUDE 234 BEDS AT THE [facility] Last Admin: 08/12/19 06:13 Dose: 40 mg Documented by: Glipizide (Glucotrol Xl) 10 mg PO QDDIAB COUNTS INCLUDE 234 BEDS AT THE [facility] Last Admin: 08/12/19 08:30 Dose: 10 mg Documented by: Hydralazine HCl (Apresoline) 10 mg IV Q3H PRN PRN Reason: Blood Pressure Hydromorphone HCl (Dilaudid) 0.5 mg IV Q3H PRN PRN Reason: Pain , Severe (7-10) Insulin Human Lispro (Humalog) 0 unit SUB-Q [facility] COUNTS INCLUDE 234 BEDS AT THE [facility]; Protocol Last Admin: 08/12/19 05:34 Dose: Not Given Documented by: Losartan Potassium (Cozaar) 100 mg PO QDAY COUNTS INCLUDE 234 BEDS AT THE [facility] Last Admin: 08/11/19 21:10 Dose: 100 mg Documented by: Nifedipine (Procardia Xl) 60 mg PO QDAY COUNTS INCLUDE 234 BEDS AT THE [facility] Ondansetron HCl (Zofran) 4 mg IV Q8H PRN PRN Reason: Nausea And Vomiting Oxycodone/Acetaminophen (Percocet 5/325) 1 tab PO Q6H PRN PRN Reason: Pain, Moderate (4-6) Potassium Chloride (K-Dur) 20 meq PO DAILY COUNTS INCLUDE 234 BEDS AT THE [facility] Pravastatin Sodium (Pravachol) 40 mg PO QHS COUNTS INCLUDE 234 BEDS AT THE [facility] Last Admin: 08/11/19 21:11 Dose: 40 mg Documented by: Senna (Senokot) 17.2 mg PO QHS COUNTS INCLUDE 234 BEDS AT THE [facility] Last Admin: 08/11/19 21:11 Dose: 17.2 mg Documented by: Sodium Chloride (Sodium Chloride Flush Syringe 10 Ml) 10 ml IV BID COUNTS INCLUDE 234 BEDS AT THE [facility] Last Admin: 08/12/19 06:13 Dose: 10 ml Documented by: Sodium Chloride (Sodium Chloride Flush Syringe 10 Ml) 10 ml IV PRN PRN PRN Reason: LINE FLUSH Review of Systems All systems: negative (pertient positives in HPI) Physical Examination Vital Signs Temp Pulse Resp BP Pulse Ox 97.3 F L 95 H 22 195/119 99 08/11/19 14:18 08/11/19 14:18 08/11/19 14:18 08/11/19 14:18 08/11/19 14:18 General appearance: no acute distress HEENT: Positive: PERRL Neck: Positive: neck supple Cardiac: Positive: Reg Rate and Rhythm, S1/S2 Lungs: Positive: Rales Neuro: Positive: Grossly Intact Abdomen: Positive: Unremarkable, Soft Male genitourinary: Positive: scrotal edema Extremities: Present: +2 Edema Results 08/12/19 03:39 08/12/19 03:39 Cardiac Enzymes 08/11/19 08/12/19 Range/Units 14:57 03:39 AST 37 30 (5-40) units/L CBC 08/11/19 08/12/19 Range/Units 14:57 03:39 WBC 5.0 4.2 L (4.5-11.0) K/mm3 RBC 5.59 H 5.12 H (3.65-5.03) M/mm3 Hgb 13.7 12.7 (11.8-15.2) gm/dl Hct 44.0 39.7 (35.5-45.6) % Plt Count 203 164 (140-440) K/mm3 Lymph # 1.0 L (1.2-5.4) K/mm3 [place] # 0.3 (0.0-0.8) K/mm3 Eos # 0.1 (0.0-0.4) K/mm3 Baso # 0.1 (0.0-0.1) K/mm3 Comprehensive Metabolic Panel 08/11/19 08/12/19 Range/Units 14:57 03:39 Sodium 139 144 (137-145) mmol/L Potassium 4.8 4.3 (3.6-5.0) mmol/L Chloride 110.4 H 113.8 H (98-107) mmol/L Carbon Dioxide 19 L 20 L (22-30) mmol/L BUN 30 H 31 H (9-20) mg/dL Creatinine 2.0 H 2.2 H (0.8-1.5) mg/dL Glucose 199 H 118 H (75-100) mg/dL Calcium 8.6 8.4 (8.4-10.2) mg/dL AST 37 30 (5-40) units/L ALT 23 19 (7-56) units/L Alkaline Phosphatase 149 H 125 (35-129) units/L Total Protein 7.6 6.5 (6.3-8.2) g/dL Albumin 2.7 L 2.5 L (3.9-5) g/dL EKG interpretations - Telemetry EKG Rhythm: Sinus Rhythm Assessment and Plan 1. Acute on chronic combined systolic and diastolic heart failure with EF of 15-25% - recommend strict I/O's and daily weights. Continue medical therapy with BB and ARB. Gentle diuresis as tolerated. 2. scrotal edema - recommend elevation of scrotum 3. Accelerated hypertension - maximize antihypertensive therapy. Consider addition of nitrates 4. DM type II - management per primary 5. Tobacco use disorder - cessation recommended.
[2019-08-12] MEDS: FAMOTIDINE 10 MG TAB PO SCH ×2 (10:00→22:14)
[2019-08-12] MEDS ORDERED: NIFEdipine XL 60 MG TAB PO SCH (10:00)
[2019-08-12] MEDS: ASPIRIN 81 MG TAB CHEW PO SCH (10:01)
[2019-08-12] MEDS: LOSARTAN 50 MG TAB PO SCH (10:01)
[2019-08-12] MEDS: POTASSIUM CHLORIDE ER 20 MEQ TAB PO SCH (10:01)
[2019-08-12] MEDS: carvediloL 12.5 MG TAB PO SCH ×2 (10:02→22:15)
--- NOTE | 2019-08-12 13:00 | Progress Note ---
Assessment and Plan Assessment and plan: Acute on chronic systolic HF with EF of 15-20% -on CHF protocol, improving -cardiology following Hypertensive emergency -BP improved -cont current anti-hypertensives -monitor BP Scrotal edema -probably due to the acute CHF -Testicular US reported as suspicious for incomplete torsion which is less like ly: urology consulted DM2 -stable -cont SSI Metabolic acidosis -level improving, will monitor HLD -cont statin Medication non-compliance -pt counseled DVT ppx: Lovenox Disp: d/c per clinical course History Interval history: pt reports feeling a little better today. His sob has improved. He admits to mild penile and scrotal pain. He also admits to non-complaint with his [facility] Hospitalist Physical - Constitutional Vitals: Temp Pulse Resp BP Pulse Ox 98.2 F 67 18 131/78 100 08/12/19 03:59 08/12/19 11:00 08/12/19 08:32 08/12/19 10:02 08/12/19 03:59 General appearance: Present: no acute distress - EENT Eyes: Present: PERRL, EOM intact ENT: hearing intact, clear oral mucosa - Neck Neck: Present: supple, normal ROM - Respiratory Respiratory effort: normal Respiratory: bilateral: diminished - Cardiovascular Rhythm: regular Heart Sounds: Present: S1 & S2 - Extremities Extremity abnormal: edema (in BLE) - Abdominal General gastrointestinal: soft, non-tender, normal bowel sounds - Psychiatric Psychiatric: appropriate mood/affect - Neurologic Neurologic: CNII-XII intact Results - Labs CBC & Chem 7: 08/12/19 03:39 08/12/19 03:39 Labs: Laboratory Last Values WBC 4.2 K/mm3 (4.5-11.0) L 08/12/19 03:39 RBC 5.12 M/mm3 (3.65-5.03) H 08/12/19 03:39 Hgb 12.7 gm/dl (11.8-15.2) 08/12/19 03:39 Hct 39.7 % (35.5-45.6) 08/12/19 03:39 MCV 78 fl (84-94) L 08/12/19 03:39 MCH 25 pg (28-32) L 08/12/19 03:39 MCHC 32 % (32-34) 08/12/19 03:39 RDW 20.3 % (13.2-15.2) H 08/12/19 03:39 Plt Count 164 K/mm3 (140-440) 08/12/19 03:39 Lymph % (Auto) 24.7 % (13.4-35.0) 08/12/19 03:39 [place] % (Auto) 7.3 % (0.0-7.3) 08/12/19 03:39 Eos % (Auto) 1.3 % (0.0-4.3) 08/12/19 03:39 Baso % (Auto) 1.9 % (0.0-1.8) H 08/12/19 03:39 Lymph # 1.0 K/mm3 (1.2-5.4) L 08/12/19 03:39 [place] # 0.3 K/mm3 (0.0-0.8) 08/12/19 03:39 Eos # 0.1 K/mm3 (0.0-0.4) 08/12/19 03:39 Baso # 0.1 K/mm3 (0.0-0.1) 08/12/19 03:39 Seg Neutrophils % 64.8 % (40.0-70.0) 08/12/19 03:39 Seg Neutrophils # 2.7 K/mm3 (1.8-7.7) 08/12/19 03:39 Sodium 144 mmol/L (137-145) 08/12/19 03:39 Potassium 4.3 mmol/L (3.6-5.0) 08/12/19 03:39 Chloride 113.8 mmol/L (98-107) H 08/12/19 03:39 Carbon Dioxide 20 mmol/L (22-30) L 08/12/19 03:39 Anion Gap 15 mmol/L 08/12/19 03:39 BUN 31 mg/dL (9-20) H 08/12/19 03:39 Creatinine 2.2 mg/dL (0.8-1.5) H 08/12/19 03:39 Estimated GFR 37 ml/min 08/12/19 03:39 BUN/Creatinine Ratio 14 % 08/12/19 03:39 Glucose 118 mg/dL (75-100) H 08/12/19 03:39 POC Glucose 128 (70-105) H 08/12/19 09:08 Hemoglobin A1c 8.0 % (4-6) H 08/11/19 14:27 Calcium 8.4 mg/dL (8.4-10.2) 08/12/19 03:39 Iron 31 ug/dL (49-181) L 08/12/19 00:10 TIBC 281 mcg/dL (250-450) 08/12/19 00:10 % Saturation 11.03 % 08/12/19 00:10 Transferrin 235 mg/dl (180-329) 08/12/19 00:10 Total Bilirubin 0.40 mg/dL (0.1-1.2) 08/12/19 03:39 AST 30 units/L (5-40) 08/12/19 03:39 ALT 19 units/L (7-56) 08/12/19 03:39 Alkaline Phosphatase 125 units/L (35-129) 08/12/19 03:39 NT-Pro-B Natriuret Pep 21915 pg/mL (0-900) H 08/11/19 14:57 Total Protein 6.5 g/dL (6.3-8.2) 08/12/19 03:39 Albumin 2.5 g/dL (3.9-5) L 08/12/19 03:39 Albumin/Globulin Ratio 0.6 % 08/12/19 03:39 Vitamin B12 1732 pg/mL (211-911) H 08/12/19 00:10 Urine Color Yellow (Yellow) 08/11/19 18:03 Urine Turbidity Clear (Clear) 08/11/19 18:03 Urine pH 5.0 (5.0-7.0) 08/11/19 18:03 Ur Specific [place] 1.011 (1.003-1.030) 08/11/19 18:03 Urine Protein 100 mg/dl mg/dL (Negative) 08/11/19 18:03 Urine Glucose (UA) 50 mg/dL (Negative) 08/11/19 18:03 Urine Ketones Neg mg/dL (Negative) 08/11/19 18:03 Urine Blood Sm (Negative) 08/11/19 18:03 Urine Nitrite Neg (Negative) 08/11/19 18:03 Urine Bilirubin Neg (Negative) 08/11/19 18:03 Urine Urobilinogen < 2.0 mg/dL (<2.0) 08/11/19 18:03 Ur Leukocyte Esterase Neg (Negative) 08/11/19 18:03 Urine WBC (Auto) 1.0 /HPF (0.0-6.0) 08/11/19 18:03 Urine RBC (Auto) 4.0 /HPF (0.0-6.0) 08/11/19 18:03 U Epithel Cells (Auto) < 1.0 /HPF (0-13.0) 08/11/19 18:03 Urine Bacteria (Auto) 1+ /HPF (Negative) 08/11/19 18:03 Hyaline Casts 3 /LPF 08/11/19 18:03 Urine Mucus Few /HPF 08/11/19 18:03 Active Medications - Current Medications Current Medications: Generic Name Dose Route Start Last Admin Trade Name Freq PRN Reason Stop Dose Admin Acetaminophen 650 mg 08/11/19 20:03 Tylenol PO Q4H PRN Pain MILD(1-3)/Fever >100.5/JONES Aspirin 81 mg 08/11/19 21:00 08/12/19 10:01 Baby Aspirin PO 81 mg DAILY SMITHA Administration Carvedilol 12.5 mg 08/11/19 22:00 08/12/19 10:02 Coreg PO 12.5 mg BID SMITHA Administration Famotidine 10 mg 08/11/19 22:00 08/12/19 10:00 Pepcid PO 10 mg BID SMITHA Administration Furosemide 40 mg 08/12/19 06:00 08/12/19 06:13 Lasix IV 40 mg 0600,1800 SMITHA Administration Glipizide 10 mg 08/11/19 21:00 08/12/19 08:30 Glucotrol Xl PO 10 mg QDDIAB SMITHA Administration Hydralazine HCl 10 mg 08/11/19 20:54 Apresoline IV Q3H PRN Blood Pressure Hydromorphone HCl 0.5 mg 08/11/19 20:03 Dilaudid IV Q3H PRN Pain , Severe (7-10) Insulin Human Lispro 0 unit 08/11/19 22:00 08/12/19 09:16 Humalog SUB-Q Not Given ACHS [facility] Protocol Isosorbide Mononitrate 30 mg 08/13/19 10:00 Imdur PO QDAY [facility] Losartan Potassium 100 mg 08/11/19 20:30 08/12/19 10:01 Cozaar PO 100 mg QDAY SMITHA Administration Nifedipine 60 mg 08/12/19 10:00 08/12/19 10:00 Procardia Xl PO 60 mg QDAY SMITHA Administration Ondansetron HCl 4 mg 08/11/19 20:03 Zofran IV Q8H PRN Nausea And Vomiting Oxycodone/Acetaminophen 1 tab 08/11/19 20:03 Percocet 5/325 PO Q6H PRN Pain, Moderate (4-6) Potassium Chloride 20 meq 08/12/19 10:00 08/12/19 10:01 K-Dur PO 20 meq DAILY SMITHA Administration Pravastatin Sodium 40 mg 08/11/19 22:00 08/11/19 21:11 Pravachol PO 40 mg QHS SMITHA Administration Senna 17.2 mg 08/11/19 22:00 08/11/19 21:11 Senokot PO 17.2 mg QHS SMITHA Administration Sodium Chloride 10 ml 08/11/19 22:00 08/12/19 10:02 Sodium Chloride Flush Syringe 10 Ml IV 10 ml BID SMITHA Administration Sodium Chloride 10 ml 08/11/19 20:03 Sodium Chloride Flush Syringe 10 Ml IV PRN PRN LINE FLUSH
[2019-08-12] MEDS: ENOXAPARIN 40 MG/0.4 ML INJ SUB-Q SCH (14:14)
[2019-08-12] MEDS: SENNOSIDES 8.6 MG TAB PO SCH (22:15)
[2019-08-12] MEDS: PRAVASTATIN 40 MG TAB PO SCH (22:15)
[2019-08-13] MEDS: FUROSEMIDE 40 MG/4 ML INJ IV SCH ×2 (05:48→17:00)
[2019-08-13] MEDS: OXYMETAZOLINE 0.05% NASAL SPRAY NS PRN ×2 (05:48→21:52)
[2019-08-13] MEDS: INSULIN LISPRO 100 UNIT/ML SUB-Q SCH ×4 (07:52→22:00)
[2019-08-13 08:08] LABS: Calcium 8.4 mg/dL (8.4-10.2)
--- NOTE | 2019-08-13 08:50 | Progress Note ---
Assessment and Plan Assessment and plan: 64-year-old man who presented to the hospital with lower extremity swelling, Scrotal edema and shortness of breath. Acute on chronic systolic HF with EF of 15-20% Continue diuretics, improving -cardiology following Hypertensive emergency Optimize BP meds DM2 -stable -cont SSI Metabolic acidosis -level improving, will monitor HLD -cont statin Medication non-compliance -pt counseled DVT ppx: Lovenox Disp: d/c per clinical course Hospitalist Physical - Constitutional Vitals: Temp Pulse Resp BP Pulse Ox 98.0 F 56 L 18 145/80 98 08/13/19 07:20 08/13/19 07:20 08/13/19 07:20 08/13/19 07:20 08/13/19 07:20 General appearance: Present: no acute distress Results - Labs CBC & Chem 7: 08/12/19 03:39 08/13/19 07:11 Labs: Laboratory Last Values WBC 4.2 K/mm3 (4.5-11.0) L 08/12/19 03:39 RBC 5.12 M/mm3 (3.65-5.03) H 08/12/19 03:39 Hgb 12.7 gm/dl (11.8-15.2) 08/12/19 03:39 Hct 39.7 % (35.5-45.6) 08/12/19 03:39 MCV 78 fl (84-94) L 08/12/19 03:39 MCH 25 pg (28-32) L 08/12/19 03:39 MCHC 32 % (32-34) 08/12/19 03:39 RDW 20.3 % (13.2-15.2) H 08/12/19 03:39 Plt Count 164 K/mm3 (140-440) 08/12/19 03:39 Lymph % (Auto) 24.7 % (13.4-35.0) 08/12/19 03:39 [place] % (Auto) 7.3 % (0.0-7.3) 08/12/19 03:39 Eos % (Auto) 1.3 % (0.0-4.3) 08/12/19 03:39 Baso % (Auto) 1.9 % (0.0-1.8) H 08/12/19 03:39 Lymph # 1.0 K/mm3 (1.2-5.4) L 08/12/19 03:39 [place] # 0.3 K/mm3 (0.0-0.8) 08/12/19 03:39 Eos # 0.1 K/mm3 (0.0-0.4) 08/12/19 03:39 Baso # 0.1 K/mm3 (0.0-0.1) 08/12/19 03:39 Seg Neutrophils % 64.8 % (40.0-70.0) 08/12/19 03:39 Seg Neutrophils # 2.7 K/mm3 (1.8-7.7) 08/12/19 03:39 Sodium 144 mmol/L (137-145) 08/13/19 07:11 Potassium 4.2 mmol/L (3.6-5.0) 08/13/19 07:11 Chloride 110.0 mmol/L (98-107) H 08/13/19 07:11 Carbon Dioxide 19 mmol/L (22-30) L 08/13/19 07:11 Anion Gap 19 mmol/L 08/13/19 07:11 BUN 41 mg/dL (9-20) H 08/13/19 07:11 Creatinine 2.2 mg/dL (0.8-1.5) H 08/13/19 07:11 Estimated GFR 37 ml/min 08/13/19 07:11 BUN/Creatinine Ratio 19 % 08/13/19 07:11 Glucose 119 mg/dL (75-100) H 08/13/19 07:11 POC Glucose 115 (70-105) H 08/13/19 07:31 Hemoglobin A1c 8.0 % (4-6) H 08/11/19 14:27 Calcium 8.4 mg/dL (8.4-10.2) 08/13/19 07:11 Magnesium 2.30 mg/dL (1.7-2.3) 08/13/19 07:11 Iron 31 ug/dL (49-181) L 08/12/19 00:10 TIBC 281 mcg/dL (250-450) 08/12/19 00:10 % Saturation 11.03 % 08/12/19 00:10 Transferrin 235 mg/dl (180-329) 08/12/19 00:10 Total Bilirubin 0.40 mg/dL (0.1-1.2) 08/12/19 03:39 AST 30 units/L (5-40) 08/12/19 03:39 ALT 19 units/L (7-56) 08/12/19 03:39 Alkaline Phosphatase 125 units/L (35-129) 08/12/19 03:39 NT-Pro-B Natriuret Pep 32142 pg/mL (0-900) H 08/11/19 14:57 Total Protein 6.5 g/dL (6.3-8.2) 08/12/19 03:39 Albumin 2.5 g/dL (3.9-5) L 08/12/19 03:39 Albumin/Globulin Ratio 0.6 % 08/12/19 03:39 Vitamin B12 1732 pg/mL (211-911) H 08/12/19 00:10 Urine Color Yellow (Yellow) 08/11/19 18:03 Urine Turbidity Clear (Clear) 08/11/19 18:03 Urine pH 5.0 (5.0-7.0) 08/11/19 18:03 Ur Specific [place] 1.011 (1.003-1.030) 08/11/19 18:03 Urine Protein 100 mg/dl mg/dL (Negative) 08/11/19 18:03 Urine Glucose (UA) 50 mg/dL (Negative) 08/11/19 18:03 Urine Ketones Neg mg/dL (Negative) 08/11/19 18:03 Urine Blood Sm (Negative) 08/11/19 18:03 Urine Nitrite Neg (Negative) 08/11/19 18:03 Urine Bilirubin Neg (Negative) 08/11/19 18:03 Urine Urobilinogen < 2.0 mg/dL (<2.0) 08/11/19 18:03 Ur Leukocyte Esterase Neg (Negative) 08/11/19 18:03 Urine WBC (Auto) 1.0 /HPF (0.0-6.0) 08/11/19 18:03 Urine RBC (Auto) 4.0 /HPF (0.0-6.0) 08/11/19 18:03 U Epithel Cells (Auto) < 1.0 /HPF (0-13.0) 08/11/19 18:03 Urine Bacteria (Auto) 1+ /HPF (Negative) 08/11/19 18:03 Hyaline Casts 3 /LPF 08/11/19 18:03 Urine Mucus Few /HPF 08/11/19 18:03 Active Medications - Current Medications Current Medications: Generic Name Dose Route Start Last Admin Trade Name Freq PRN Reason Stop Dose Admin Acetaminophen 650 mg 08/11/19 20:03 Tylenol PO Q4H PRN Pain MILD(1-3)/Fever >100.5/JONES Aspirin 81 mg 08/11/19 21:00 08/12/19 10:01 Baby Aspirin PO 81 mg DAILY SMITHA Administration Carvedilol 12.5 mg 08/11/19 22:00 08/12/19 22:15 Coreg PO 12.5 mg BID SMITHA Administration Enoxaparin Sodium 40 mg 08/12/19 14:00 08/12/19 14:14 Enoxaparin SUB-Q 40 mg QDAY SMITHA Administration Famotidine 10 mg 08/11/19 22:00 08/12/19 22:14 Pepcid PO 10 mg BID SMITHA Administration Furosemide 40 mg 08/12/19 06:00 08/13/19 05:48 Lasix IV 40 mg 0600,1800 SMITHA Administration Hydralazine HCl 10 mg 08/11/19 20:54 Apresoline IV Q3H PRN Blood Pressure Hydromorphone HCl 0.5 mg 08/11/19 20:03 Dilaudid IV Q3H PRN Pain , Severe (7-10) Insulin Human Lispro 0 unit 08/11/19 22:00 08/13/19 07:52 Humalog SUB-Q Not Given ACHS [facility] Protocol Isosorbide Mononitrate 30 mg 08/13/19 10:00 Imdur PO QDAY SMITHA Losartan Potassium 100 mg 08/11/19 20:30 08/12/19 10:01 Cozaar PO 100 mg QDAY SMITHA Administration Nifedipine 60 mg 08/12/19 10:00 08/12/19 10:00 Procardia Xl PO 60 mg QDAY SMITHA Administration Ondansetron HCl 4 mg 08/11/19 20:03 Zofran IV Q8H PRN Nausea And Vomiting Oxycodone/Acetaminophen 1 tab 08/11/19 20:03 Percocet 5/325 PO Q6H PRN Pain, Moderate (4-6) Oxymetazoline HCl 2 spray 08/12/19 23:42 08/13/19 05:48 Vicks Sinex NS 2 spray Q12H PRN Administration Nasal Congestion Potassium Chloride 20 meq 08/12/19 10:00 08/12/19 10:01 K-Dur PO 20 meq DAILY SMITHA Administration Pravastatin Sodium 40 mg 08/11/19 22:00 08/12/19 22:15 Pravachol PO 40 mg QHS SMITHA Administration Senna 17.2 mg 08/11/19 22:00 08/12/19 22:15 Senokot PO 17.2 mg QHS SMITHA Administration Sodium Chloride 10 ml 08/11/19 22:00 08/12/19 22:17 Sodium Chloride Flush Syringe 10 Ml IV 10 ml BID SMITHA Administration Sodium Chloride 10 ml 08/11/19 20:03 Sodium Chloride Flush Syringe 10 Ml IV PRN PRN LINE FLUSH
--- NOTE | 2019-08-13 08:52 | Progress Note ---
Assessment and Plan 1. Acute on chronic combined systolic and diastolic heart failure with EF of 15-25% - recommend strict I/O's and daily weights. Continue medical therapy with BB and ARB. Gentle diuresis as tolerated. 2. scrotal edema - recommend elevation of scrotum 3. Accelerated hypertension - maximize antihypertensive therapy. Consider addition of nitrates 4. DM type II - management per primary 5. Tobacco use disorder - cessation recommended. Subjective Date of service: 08/13/19 Interval history: No acute events. Resting comfortably. No chest pain or SOB. Objective Vital Signs Temp Pulse Resp BP Pulse Ox 08/13/19 07:20 98.0 F 56 L 18 145/80 98 08/13/19 05:21 97.2 F L 59 L 22 146/83 96 08/13/19 03:00 62 08/13/19 00:59 97.5 F L 61 22 137/74 98 08/12/19 22:15 68 141/78 08/12/19 21:06 97.4 F L 68 22 141/78 96 08/12/19 19:00 69 08/12/19 16:05 98.2 F 58 L 18 119/65 100 08/12/19 11:00 67 08/12/19 10:02 70 131/78 08/12/19 10:01 70 131/78 - Physical Examination HEENT: Positive: PERRL Neck: Positive: neck supple Neuro: Positive: Grossly Intact Abdomen: Positive: Unremarkable, Soft Extremities: Present: +2 Edema - Labs and Meds Comprehensive Metabolic Panel 08/12/19 08/13/19 Range/Units 22:45 07:11 Sodium 144 (137-145) mmol/L Potassium 4.2 (3.6-5.0) mmol/L Chloride 110.0 H (98-107) mmol/L Carbon Dioxide 19 L (22-30) mmol/L BUN 41 H (9-20) mg/dL Creatinine 2.2 H (0.8-1.5) mg/dL Glucose 74 L 119 H (75-100) mg/dL Calcium 8.4 (8.4-10.2) mg/dL - Imaging and Cardiology EKG: report reviewed (sinus rhythm heart rate of 80/m, LVH)
[2019-08-13] MEDS: LOSARTAN 50 MG TAB PO SCH (09:14)
[2019-08-13] MEDS: ENOXAPARIN 40 MG/0.4 ML INJ SUB-Q SCH (09:16)
[2019-08-13] MEDS: POTASSIUM CHLORIDE ER 20 MEQ TAB PO SCH (09:16)
[2019-08-13] MEDS: ASPIRIN 81 MG TAB CHEW PO SCH (09:16)
[2019-08-13] MEDS: carvediloL 12.5 MG TAB PO SCH ×2 (09:16→21:48)
[2019-08-13] MEDS: FAMOTIDINE 10 MG TAB PO SCH ×2 (09:17→21:52)
[2019-08-13] MEDS: hydrALAZINE 25 MG TAB PO SCH ×2 (14:15→21:48)
[2019-08-13] MEDS: PRAVASTATIN 40 MG TAB PO SCH (21:48)
[2019-08-13] MEDS: SENNOSIDES 8.6 MG TAB PO SCH (21:48)
[2019-08-14] MEDS: FUROSEMIDE 40 MG/4 ML INJ IV SCH ×2 (08:19→17:49)
[2019-08-14] MEDS: hydrALAZINE 25 MG TAB PO SCH (08:25)
[2019-08-14] MEDS: INSULIN LISPRO 100 UNIT/ML SUB-Q SCH ×4 (08:59→21:24)
[2019-08-14] MEDS: FAMOTIDINE 10 MG TAB PO SCH ×2 (09:25→21:23)
[2019-08-14] MEDS: ENOXAPARIN 40 MG/0.4 ML INJ SUB-Q SCH (09:25)
[2019-08-14] MEDS: ASPIRIN 81 MG TAB CHEW PO SCH (09:25)
[2019-08-14] MEDS: LOSARTAN 50 MG TAB PO SCH (09:25)
[2019-08-14] MEDS: POTASSIUM CHLORIDE ER 20 MEQ TAB PO SCH (09:26)
[2019-08-14] MEDS: carvediloL 12.5 MG TAB PO SCH ×2 (09:26→21:22)
--- NOTE | 2019-08-14 10:11 | Progress Note ---
Assessment and Plan Assessment and plan: 64-year-old man who presented to the hospital with lower extremity swelling, Scrotal edema and shortness of breath. Acute on chronic systolic HF with EF of 15-20% Continue diuretics, improving, Milrinone started -cardiology following Hypertensive emergency Optimize BP meds DM2 -stable -cont SSI Patient was hypoglycemic, therefore glipizide was discontinued Metabolic acidosis -level improving, will monitor HLD -cont statin Medication non-compliance -pt counseled DVT ppx: Lovenox Disp: d/c per clinical course Hospitalist Physical - Constitutional Vitals: Temp Pulse Resp BP Pulse Ox 97.9 F 70 18 170/86 99 08/14/19 07:40 08/14/19 09:26 08/14/19 07:40 08/14/19 09:26 08/14/19 07:40 General appearance: Present: no acute distress Results - Labs CBC & Chem 7: 08/12/19 03:39 08/13/19 07:11 Labs: Laboratory Last Values WBC 4.2 K/mm3 (4.5-11.0) L 08/12/19 03:39 RBC 5.12 M/mm3 (3.65-5.03) H 08/12/19 03:39 Hgb 12.7 gm/dl (11.8-15.2) 08/12/19 03:39 Hct 39.7 % (35.5-45.6) 08/12/19 03:39 MCV 78 fl (84-94) L 08/12/19 03:39 MCH 25 pg (28-32) L 08/12/19 03:39 MCHC 32 % (32-34) 08/12/19 03:39 RDW 20.3 % (13.2-15.2) H 08/12/19 03:39 Plt Count 164 K/mm3 (140-440) 08/12/19 03:39 Lymph % (Auto) 24.7 % (13.4-35.0) 08/12/19 03:39 [place] % (Auto) 7.3 % (0.0-7.3) 08/12/19 03:39 Eos % (Auto) 1.3 % (0.0-4.3) 08/12/19 03:39 Baso % (Auto) 1.9 % (0.0-1.8) H 08/12/19 03:39 Lymph # 1.0 K/mm3 (1.2-5.4) L 08/12/19 03:39 [place] # 0.3 K/mm3 (0.0-0.8) 08/12/19 03:39 Eos # 0.1 K/mm3 (0.0-0.4) 08/12/19 03:39 Baso # 0.1 K/mm3 (0.0-0.1) 08/12/19 03:39 Seg Neutrophils % 64.8 % (40.0-70.0) 08/12/19 03:39 Seg Neutrophils # 2.7 K/mm3 (1.8-7.7) 08/12/19 03:39 Sodium 144 mmol/L (137-145) 08/13/19 07:11 Potassium 4.2 mmol/L (3.6-5.0) 08/13/19 07:11 Chloride 110.0 mmol/L (98-107) H 08/13/19 07:11 Carbon Dioxide 19 mmol/L (22-30) L 08/13/19 07:11 Anion Gap 19 mmol/L 08/13/19 07:11 BUN 41 mg/dL (9-20) H 08/13/19 07:11 Creatinine 2.2 mg/dL (0.8-1.5) H 08/13/19 07:11 Estimated GFR 37 ml/min 08/13/19 07:11 BUN/Creatinine Ratio 19 % 08/13/19 07:11 Glucose 119 mg/dL (75-100) H 08/13/19 07:11 POC Glucose 117 (70-105) H 08/14/19 07:48 Hemoglobin A1c 8.0 % (4-6) H 08/11/19 14:27 Calcium 8.4 mg/dL (8.4-10.2) 08/13/19 07:11 Magnesium 2.30 mg/dL (1.7-2.3) 08/13/19 07:11 Iron 31 ug/dL (49-181) L 08/12/19 00:10 TIBC 281 mcg/dL (250-450) 08/12/19 00:10 % Saturation 11.03 % 08/12/19 00:10 Transferrin 235 mg/dl (180-329) 08/12/19 00:10 Total Bilirubin 0.40 mg/dL (0.1-1.2) 08/12/19 03:39 AST 30 units/L (5-40) 08/12/19 03:39 ALT 19 units/L (7-56) 08/12/19 03:39 Alkaline Phosphatase 125 units/L (35-129) 08/12/19 03:39 NT-Pro-B Natriuret Pep 56344 pg/mL (0-900) H 08/11/19 14:57 Total Protein 6.5 g/dL (6.3-8.2) 08/12/19 03:39 Albumin 2.5 g/dL (3.9-5) L 08/12/19 03:39 Albumin/Globulin Ratio 0.6 % 08/12/19 03:39 Vitamin B12 1732 pg/mL (211-911) H 08/12/19 00:10 Urine Color Yellow (Yellow) 08/11/19 18:03 Urine Turbidity Clear (Clear) 08/11/19 18:03 Urine pH 5.0 (5.0-7.0) 08/11/19 18:03 Ur Specific [place] 1.011 (1.003-1.030) 08/11/19 18:03 Urine Protein 100 mg/dl mg/dL (Negative) 08/11/19 18:03 Urine Glucose (UA) 50 mg/dL (Negative) 08/11/19 18:03 Urine Ketones Neg mg/dL (Negative) 08/11/19 18:03 Urine Blood Sm (Negative) 08/11/19 18:03 Urine Nitrite Neg (Negative) 08/11/19 18:03 Urine Bilirubin Neg (Negative) 08/11/19 18:03 Urine Urobilinogen < 2.0 mg/dL (<2.0) 08/11/19 18:03 Ur Leukocyte Esterase Neg (Negative) 08/11/19 18:03 Urine WBC (Auto) 1.0 /HPF (0.0-6.0) 08/11/19 18:03 Urine RBC (Auto) 4.0 /HPF (0.0-6.0) 08/11/19 18:03 U Epithel Cells (Auto) < 1.0 /HPF (0-13.0) 08/11/19 18:03 Urine Bacteria (Auto) 1+ /HPF (Negative) 08/11/19 18:03 Hyaline Casts 3 /LPF 08/11/19 18:03 Urine Mucus Few /HPF 08/11/19 18:03 Active Medications - Current Medications Current Medications: Generic Name Dose Route Start Last Admin Trade Name Freq PRN Reason Stop Dose Admin Acetaminophen 650 mg 08/11/19 20:03 Tylenol PO Q4H PRN Pain MILD(1-3)/Fever >100.5/JONES Aspirin 81 mg 08/11/19 21:00 08/14/19 09:25 Baby Aspirin PO 81 mg DAILY SMITHA Administration Carvedilol 12.5 mg 08/11/19 22:00 08/14/19 09:26 Coreg PO 12.5 mg BID SMITHA Administration Enoxaparin Sodium 40 mg 08/12/19 14:00 08/14/19 09:25 Enoxaparin SUB-Q 40 mg QDAY SMITHA Administration Famotidine 10 mg 08/11/19 22:00 08/14/19 09:25 Pepcid PO 10 mg BID SMITHA Administration Furosemide 40 mg 08/12/19 06:00 08/14/19 08:19 Lasix IV 40 mg 0600,1800 SMITHA Administration Hydralazine HCl 10 mg 08/11/19 20:54 Apresoline IV Q3H PRN Blood Pressure Hydralazine HCl 25 mg 08/13/19 14:00 08/14/19 08:25 Apresoline PO 25 mg Q8HR SMITHA Administration Hydromorphone HCl 0.5 mg 08/11/19 20:03 Dilaudid IV Q3H PRN Pain , Severe (7-10) Insulin Human Lispro 0 unit 08/11/19 22:00 08/14/19 08:59 Humalog SUB-Q Not Given ACHS [facility] Protocol Isosorbide Mononitrate 30 mg 08/13/19 10:00 08/14/19 09:26 Imdur PO 30 mg QDAY SMITHA Administration Losartan Potassium 100 mg 08/11/19 20:30 08/14/19 09:25 Cozaar PO 100 mg QDAY SMITHA Administration Ondansetron HCl 4 mg 08/11/19 20:03 Zofran IV Q8H PRN Nausea And Vomiting Oxycodone/Acetaminophen 1 tab 08/11/19 20:03 Percocet 5/325 PO Q6H PRN Pain, Moderate (4-6) Oxymetazoline HCl 2 spray 08/12/19 23:42 08/13/19 21:52 Vicks Sinex NS 2 spray Q12H PRN Administration Nasal Congestion Pneumococcal 13-Valent Conj Vacc 0.5 ml 08/15/19 12:00 Prevnar 13 IM 08/15/19 12:01 .ONCE ONE Potassium Chloride 20 meq 08/12/19 10:00 08/14/19 09:26 K-Dur PO 20 meq DAILY SMITHA Administration Pravastatin Sodium 40 mg 08/11/19 22:00 08/13/19 21:48 Pravachol PO 40 mg QHS SMITHA Administration Senna 17.2 mg 08/11/19 22:00 08/13/19 21:48 Senokot PO 17.2 mg QHS SMITHA Administration Sodium Chloride 10 ml 08/11/19 22:00 08/14/19 09:26 Sodium Chloride Flush Syringe 10 Ml IV 10 ml BID SMITHA Administration Sodium Chloride 10 ml 08/11/19 20:03 Sodium Chloride Flush Syringe 10 Ml IV PRN PRN LINE FLUSH
--- NOTE | 2019-08-14 10:28 | Consultation ---
History of Present Illness - Reason for Consult Consult date: 08/14/19 - History of Present Illness NEW [facility] 64-year-old male with a past medical history of diabetes, CHF EF of 15-25%, and hypertension presents to the hospital complains of swelling to his scrotal and penis and scrotum 2 days. Patient states the skin in the areas also irritated. He complains of some increased shortness breath the last 2 days. Has chronic two-pillow orthopnea and occasional PND. He has a dry cough. He denies fever or chest pain. He has been compliant with his medications including furosemide 40 mg daily although he has not taken any of his meds today. He states he has been provided a fluid restriction but is unlikely compliant since he does not keep close track of his fluid intake. No complaints of fever or dysuria. PMD: Dr. Cornel Kamara cardiology group: [place] heart exam normal phallus mild scrotal edema (pt reports significant in size while in hospital - duresis) scrotal us 08-11-19---marked scrotal edema A/P scrotal edema due to CHF---improved no surgical intervention needed Past History Past Medical History: diabetes, hypertension, other (CHF) Social history: other (history of smoking). denies: prescription drug abuse, IV drug use Medications and Allergies Allergies Allergy/AdvReac Type Severity Reaction Status Date / Time lisinopril Allergy Unknown Verified 08/11/19 14:13 Home Medications Medication Instructions Recorded Confirmed Last Taken Type Aspirin 81 mg PO DAILY 11/23/18 11/23/18 11/23/18 History Simvastatin 20 mg PO DAILY 11/23/18 11/23/18 11/23/18 History glipiZIDE XL [Glucotrol Xl] 10 mg PO DAILY 11/23/18 11/23/18 11/23/18 History Losartan [Cozaar] 100 mg PO QDAY #30 tablet 11/26/18 Unknown Rx NIFEdipine XL [Procardia Xl] 60 mg PO QDAY #30 tablet 11/26/18 Unknown Rx Sennosides Tab [Senokot] 17.2 mg PO QHS #30 tablet 11/26/18 Unknown Rx Torsemide [Demadex] 40 mg PO DAILY #60 tablet 11/26/18 Unknown Rx carvediloL [Coreg] 3.125 mg PO BID #60 tablet 11/26/18 Unknown Rx Active Meds: Active Medications Acetaminophen (Tylenol) 650 mg PO Q4H PRN PRN Reason: Pain MILD(1-3)/Fever >100.5/JONES Aspirin (Baby Aspirin) 81 mg PO DAILY [facility] Last Admin: 08/14/19 09:25 Dose: 81 mg Documented by: Carvedilol (Coreg) 12.5 mg PO BID [facility] Last Admin: 08/14/19 09:26 Dose: 12.5 mg Documented by: Enoxaparin Sodium (Enoxaparin) 40 mg SUB-Q QDAY [facility] Last Admin: 08/14/19 09:25 Dose: 40 mg Documented by: Famotidine (Pepcid) 10 mg PO BID [facility] Last Admin: 08/14/19 09:25 Dose: 10 mg Documented by: Furosemide (Lasix) 40 mg IV 0600,1800 [facility] Last Admin: 08/14/19 08:19 Dose: 40 mg Documented by: Hydralazine HCl (Apresoline) 10 mg IV Q3H PRN PRN Reason: Blood Pressure Hydralazine HCl (Apresoline) 25 mg PO Q8HR [facility] Last Admin: 08/14/19 08:25 Dose: 25 mg Documented by: Hydromorphone HCl (Dilaudid) 0.5 mg IV Q3H PRN PRN Reason: Pain , Severe (7-10) Insulin Human Lispro (Humalog) 0 unit SUB-Q [facility]; Protocol Last Admin: 08/14/19 08:59 Dose: Not Given Documented by: Isosorbide Mononitrate (Imdur) 30 mg PO QDAY [facility] Last Admin: 08/14/19 09:26 Dose: 30 mg Documented by: Losartan Potassium (Cozaar) 100 mg PO QDAY [facility] Last Admin: 08/14/19 09:25 Dose: 100 mg Documented by: Ondansetron HCl (Zofran) 4 mg IV Q8H PRN PRN Reason: Nausea And Vomiting Oxycodone/Acetaminophen (Percocet 5/325) 1 tab PO Q6H PRN PRN Reason: Pain, Moderate (4-6) Oxymetazoline HCl (Vicks Sinex) 2 spray NS Q12H PRN PRN Reason: Nasal Congestion Last Admin: 08/13/19 21:52 Dose: 2 spray Documented by: Pneumococcal 13-Valent Conj Vacc (Prevnar 13) 0.5 ml IM .ONCE ONE Stop: 08/15/19 12:01 Potassium Chloride (K-Dur) 20 meq PO DAILY [facility] Last Admin: 08/14/19 09:26 Dose: 20 meq Documented by: Pravastatin Sodium (Pravachol) 40 mg PO QHS [facility] Last Admin: 08/13/19 21:48 Dose: 40 mg Documented by: Senna (Senokot) 17.2 mg PO QHS [facility] Last Admin: 08/13/19 21:48 Dose: 17.2 mg Documented by: Sodium Chloride (Sodium Chloride Flush Syringe 10 Ml) 10 ml IV BID [facility] Last Admin: 08/14/19 09:26 Dose: 10 ml Documented by: Sodium Chloride (Sodium Chloride Flush Syringe 10 Ml) 10 ml IV PRN PRN PRN Reason: LINE FLUSH Exam - Constitutional Vitals: Temp Pulse Resp BP Pulse Ox 97.9 F 70 18 170/86 99 08/14/19 07:40 08/14/19 09:26 08/14/19 07:40 08/14/19 09:26 08/14/19 07:40 Results - Labs CBC & Chem 7: 08/12/19 03:39 08/13/19 07:11 Labs: Abnormal lab results 08/13/19 08/13/19 08/13/19 Range/Units 12:54 16:28 21:53 POC Glucose 231 H 209 H 152 H (70-105) 08/14/19 Range/Units 07:48 POC Glucose 117 H (70-105)
--- NOTE | 2019-08-14 10:55 | Progress Note ---
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 EF 15-20% by echo 11/2018. Hypertension Diabetes Noncompliant with medications and outpatient cardiac follow up. Recommendations: Strict I's and O's Fluid/sodium restriction. Optimal BP management. Aggressive medical therapy for systolic heart failure. We will initiate a trial if intravenous milrinone therapy. Subjective Date of service: 08/14/19 Interval history: Patient is admitted with acute CHF exacerbation, Ascities and severe uncontrolled hypertension. BP still not optimal; currently 170/86. Objective Vital Signs Temp Pulse Resp BP Pulse Ox 08/14/19 09:26 70 170/86 08/14/19 09:25 70 170/86 08/14/19 08:25 70 170/86 08/14/19 07:40 97.9 F 70 18 170/86 99 08/14/19 04:12 98.0 F 63 20 160/82 100 08/14/19 03:00 84 08/13/19 22:57 96.5 F L 69 24 150/89 100 08/13/19 19:39 97.2 F L 66 20 150/82 97 08/13/19 19:00 61 08/13/19 14:15 64 128/71 08/13/19 12:46 97.6 F 58 L 18 128/71 99 08/13/19 11:00 66 - Physical Examination General: No Apparent Distress HEENT: Positive: PERRL Neck: Positive: neck supple Cardiac: Positive: Reg Rate and Rhythm Lungs: Positive: Decreased Breath Sounds Neuro: Positive: Grossly Intact Abdomen: Positive: Ascites Extremities: Present: +2 Edema - Imaging and Cardiology EKG: report reviewed (sinus rhythm heart rate of 80/m, LVH)
[2019-08-14] MEDS: MILRINONE-D5W 20 MG/100 ML 20 MG/100 ML BAG IV SCH ×2 (12:13→21:19)
[2019-08-14] MEDS: NIFEdipine XL 60 MG TAB PO SCH (13:00)
[2019-08-14] MEDS: hydrALAZINE 100 MG TAB PO SCH ×2 (13:00→21:22)
[2019-08-14] MEDS: SPIRONOLACTONE 25 MG TAB PO SCH (13:00)
[2019-08-14] MEDS: ISOSORBIDE DINITRATE 20 MG TAB PO SCH ×2 (14:12→21:22)
[2019-08-14] MEDS: PRAVASTATIN 40 MG TAB PO SCH (21:23)
[2019-08-14] MEDS: SENNOSIDES 8.6 MG TAB PO SCH (21:23)
[2019-08-15] MEDS: FUROSEMIDE 40 MG/4 ML INJ IV SCH ×2 (06:19→17:51)
[2019-08-15] MEDS: ISOSORBIDE DINITRATE 20 MG TAB PO SCH ×3 (06:21→22:44)
[2019-08-15] MEDS: INSULIN LISPRO 100 UNIT/ML SUB-Q SCH ×4 (09:10→22:45)
[2019-08-15] MEDS: ENOXAPARIN 40 MG/0.4 ML INJ SUB-Q SCH (09:10)
[2019-08-15] MEDS: FAMOTIDINE 10 MG TAB PO SCH ×2 (09:10→22:44)
[2019-08-15] MEDS: NIFEdipine XL 60 MG TAB PO SCH (09:10)
[2019-08-15] MEDS: carvediloL 12.5 MG TAB PO SCH ×2 (09:11→22:44)
[2019-08-15] MEDS: hydrALAZINE 100 MG TAB PO SCH ×4 (09:11→20:25)
[2019-08-15] MEDS: ASPIRIN 81 MG TAB CHEW PO SCH (09:11)
[2019-08-15] MEDS: SPIRONOLACTONE 25 MG TAB PO SCH (09:11)
--- NOTE | 2019-08-15 10:02 | Progress Note ---
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 EF 15-20% by echo 11/2018. Hypertension Diabetes Noncompliant with medications and outpatient cardiac follow up. Recommendations: Strict I's and O's Fluid/sodium restriction. Aggressive medical therapy for systolic heart failure. Continue trial if intravenous milrinone therapy. Subjective Date of service: 08/15/19 Interval history: IV milrinone continues. Patient is reports his breathing is better and that he is diuresing well. Blood pressure is better, currently 107/52. Objective Vital Signs Temp Pulse Resp BP BP Pulse Ox 08/15/19 08:48 62 08/15/19 08:00 98.3 F 61 20 107/52 94 08/15/19 06:21 114/51 08/15/19 04:12 66 97 08/15/19 03:26 98.5 F 20 99/52 08/14/19 23:23 98.4 F 71 18 117/56 96 08/14/19 21:22 72 129/58 08/14/19 19:45 97.3 F L 70 18 129/58 100 08/14/19 16:05 97.5 F L 70 19 174/82 96 08/14/19 11:51 97.5 F L 64 18 148/90 98 08/14/19 11:00 67 - Physical Examination General: No Apparent Distress HEENT: Positive: PERRL Neck: Positive: neck supple Neuro: Positive: Grossly Intact Abdomen: Positive: Ascites Extremities: Present: +2 Edema - Imaging and Cardiology EKG: report reviewed (sinus rhythm heart rate of 80/m, LVH)
[2019-08-15] MEDS: MILRINONE-D5W 20 MG/100 ML 20 MG/100 ML BAG IV SCH ×2 (10:21→22:43)
[2019-08-15] MEDS ORDERED: FLU VACC QUAD 2019-20 (3 YR UP)/PF 60 MCG/0.5 ML SYRINGE IM ONE (12:00)
[2019-08-15] MEDS ORDERED: PNEUMOC 13-VAL CONJ-DIP CRM/PF 0.5 ML IM ONE (12:00)
--- NOTE | 2019-08-15 12:32 | Progress Note ---
Assessment and Plan Assessment and plan: Acute on chronic systolic HF with EF of 15-20% -on CHF protocol including IV milrinone therapy. -cardiology following Hypertensive emergency on admission -BP currently low normal -cont coreg, isordil and nifedipine -hydralazine dose reduced to 50 mg TID -monitor BP Scrotal edema -likely due to the acute CHF, improving -Testicular US reported as suspicious for incomplete torsion which is less likely DM2 with hypoglycemia -stable -cont SSI and hypoglycemic protocol Metabolic acidosis -level improving, will monitor CKD stage 3 -stable -will monitor HLD -cont statin Medication non-compliance -pt counseled DVT ppx: Lovenox Disp: d/c per clinical course and clearance by cardiology History Interval history: Pt has no new complaints. His scrotal edema is improving and he denies pain Hospitalist Physical - Constitutional Vitals: Temp Pulse Resp BP Pulse Ox 98.3 F 62 20 107/52 94 08/15/19 08:00 08/15/19 08:48 08/15/19 08:00 08/15/19 08:00 08/15/19 08:00 General appearance: Present: no acute distress, well-nourished - EENT Eyes: Present: PERRL, EOM intact ENT: hearing intact, clear oral mucosa - Neck Neck: Present: supple - Respiratory Respiratory effort: normal Respiratory: bilateral: diminished - Cardiovascular Rhythm: regular Heart Sounds: Present: S1 & S2 - Extremities Extremity abnormal: edema (in BLE improving) - Abdominal General gastrointestinal: soft, non-tender, normal bowel sounds - Integumentary Integumentary: Present: warm - Psychiatric Psychiatric: appropriate mood/affect - Neurologic Neurologic: CNII-XII intact Results - Labs CBC & Chem 7: 08/12/19 03:39 08/13/19 07:11 Labs: Laboratory Last Values WBC 4.2 K/mm3 (4.5-11.0) L 08/12/19 03:39 RBC 5.12 M/mm3 (3.65-5.03) H 08/12/19 03:39 Hgb 12.7 gm/dl (11.8-15.2) 08/12/19 03:39 Hct 39.7 % (35.5-45.6) 08/12/19 03:39 MCV 78 fl (84-94) L 08/12/19 03:39 MCH 25 pg (28-32) L 08/12/19 03:39 MCHC 32 % (32-34) 08/12/19 03:39 RDW 20.3 % (13.2-15.2) H 08/12/19 03:39 Plt Count 164 K/mm3 (140-440) 08/12/19 03:39 Lymph % (Auto) 24.7 % (13.4-35.0) 08/12/19 03:39 [place] % (Auto) 7.3 % (0.0-7.3) 08/12/19 03:39 Eos % (Auto) 1.3 % (0.0-4.3) 08/12/19 03:39 Baso % (Auto) 1.9 % (0.0-1.8) H 08/12/19 03:39 Lymph # 1.0 K/mm3 (1.2-5.4) L 08/12/19 03:39 [place] # 0.3 K/mm3 (0.0-0.8) 08/12/19 03:39 Eos # 0.1 K/mm3 (0.0-0.4) 08/12/19 03:39 Baso # 0.1 K/mm3 (0.0-0.1) 08/12/19 03:39 Seg Neutrophils % 64.8 % (40.0-70.0) 08/12/19 03:39 Seg Neutrophils # 2.7 K/mm3 (1.8-7.7) 08/12/19 03:39 Sodium 144 mmol/L (137-145) 08/13/19 07:11 Potassium 4.2 mmol/L (3.6-5.0) 08/13/19 07:11 Chloride 110.0 mmol/L (98-107) H 08/13/19 07:11 Carbon Dioxide 19 mmol/L (22-30) L 08/13/19 07:11 Anion Gap 19 mmol/L 08/13/19 07:11 BUN 41 mg/dL (9-20) H 08/13/19 07:11 Creatinine 2.2 mg/dL (0.8-1.5) H 08/13/19 07:11 Estimated GFR 37 ml/min 08/13/19 07:11 BUN/Creatinine Ratio 19 % 08/13/19 07:11 Glucose 119 mg/dL (75-100) H 08/13/19 07:11 POC Glucose 212 (70-105) H 08/15/19 12:12 Hemoglobin A1c 8.0 % (4-6) H 08/11/19 14:27 Calcium 8.4 mg/dL (8.4-10.2) 08/13/19 07:11 Magnesium 2.30 mg/dL (1.7-2.3) 08/13/19 07:11 Iron 31 ug/dL (49-181) L 08/12/19 00:10 TIBC 281 mcg/dL (250-450) 08/12/19 00:10 % Saturation 11.03 % 08/12/19 00:10 Transferrin 235 mg/dl (180-329) 08/12/19 00:10 Total Bilirubin 0.40 mg/dL (0.1-1.2) 08/12/19 03:39 AST 30 units/L (5-40) 08/12/19 03:39 ALT 19 units/L (7-56) 08/12/19 03:39 Alkaline Phosphatase 125 units/L (35-129) 08/12/19 03:39 NT-Pro-B Natriuret Pep 02471 pg/mL (0-900) H 08/11/19 14:57 Total Protein 6.5 g/dL (6.3-8.2) 08/12/19 03:39 Albumin 2.5 g/dL (3.9-5) L 08/12/19 03:39 Albumin/Globulin Ratio 0.6 % 08/12/19 03:39 Vitamin B12 1732 pg/mL (211-911) H 08/12/19 00:10 Urine Color Yellow (Yellow) 08/11/19 18:03 Urine Turbidity Clear (Clear) 08/11/19 18:03 Urine pH 5.0 (5.0-7.0) 08/11/19 18:03 Ur Specific [place] 1.011 (1.003-1.030) 08/11/19 18:03 Urine Protein 100 mg/dl mg/dL (Negative) 08/11/19 18:03 Urine Glucose (UA) 50 mg/dL (Negative) 08/11/19 18:03 Urine Ketones Neg mg/dL (Negative) 08/11/19 18:03 Urine Blood Sm (Negative) 08/11/19 18:03 Urine Nitrite Neg (Negative) 08/11/19 18:03 Urine Bilirubin Neg (Negative) 08/11/19 18:03 Urine Urobilinogen < 2.0 mg/dL (<2.0) 08/11/19 18:03 Ur Leukocyte Esterase Neg (Negative) 08/11/19 18:03 Urine WBC (Auto) 1.0 /HPF (0.0-6.0) 08/11/19 18:03 Urine RBC (Auto) 4.0 /HPF (0.0-6.0) 08/11/19 18:03 U Epithel Cells (Auto) < 1.0 /HPF (0-13.0) 08/11/19 18:03 Urine Bacteria (Auto) 1+ /HPF (Negative) 08/11/19 18:03 Hyaline Casts 3 /LPF 08/11/19 18:03 Urine Mucus Few /HPF 08/11/19 18:03 Active Medications - Current Medications Current Medications: Generic Name Dose Route Start Last Admin Trade Name Freq PRN Reason Stop Dose Admin Acetaminophen 650 mg 08/11/19 20:03 Tylenol PO Q4H PRN Pain MILD(1-3)/Fever >100.5/JONES Aspirin 81 mg 08/11/19 21:00 08/15/19 09:11 Baby Aspirin PO 81 mg DAILY SMITHA Administration Carvedilol 12.5 mg 08/11/19 22:00 08/15/19 09:11 Coreg PO 12.5 mg BID SMITHA Administration Enoxaparin Sodium 40 mg 08/12/19 14:00 08/15/19 09:10 Enoxaparin SUB-Q 40 mg QDAY SMITHA Administration Famotidine 10 mg 08/11/19 22:00 08/15/19 09:10 Pepcid PO 10 mg BID SMITHA Administration Furosemide 40 mg 08/12/19 06:00 08/15/19 06:19 Lasix IV 40 mg 0600,1800 SMITHA Administration Hydralazine HCl 10 mg 08/11/19 20:54 Apresoline IV Q3H PRN Blood Pressure Hydromorphone HCl 0.5 mg 08/11/19 20:03 Dilaudid IV Q3H PRN Pain , Severe (7-10) Milrinone Lactate/Dextrose 20 mg in 100 mls @ 7.931 mls/hr 08/14/19 11:00 08/15/19 10:21 Milrinone-D5w 20 Mg/100 Ml IV 08/17/19 10:59 0.375 mcg/kg/min TITR SMITHA 7.931 mls/hr Administration 0.375 MCG/KG/MIN Insulin Human Lispro 0 unit 08/11/19 22:00 08/15/19 12:12 Humalog SUB-Q Not Given ACHS [facility] Protocol Isosorbide Dinitrate 20 mg 08/14/19 14:00 08/15/19 06:21 Isordil Titradose PO Not Given Q8HR [facility] Nifedipine 60 mg 08/14/19 13:00 08/15/19 09:10 Procardia Xl PO 60 mg QDAY [facility] Administration Ondansetron HCl 4 mg 08/11/19 20:03 Zofran IV Q8H PRN Nausea And Vomiting Oxycodone/Acetaminophen 1 tab 08/11/19 20:03 Percocet 5/325 PO Q6H PRN Pain, Moderate (4-6) Oxymetazoline HCl 2 spray 08/12/19 23:42 08/13/19 21:52 Vicks Sinex NS 2 spray Q12H PRN Administration Nasal Congestion Pravastatin Sodium 40 mg 08/11/19 22:00 08/14/19 21:23 Pravachol PO 40 mg QHS SMITHA Administration Senna 17.2 mg 08/11/19 22:00 08/14/19 21:23 Senokot PO 17.2 mg QHS SMITHA Administration Sodium Chloride 10 ml 08/11/19 22:00 08/15/19 09:11 Sodium Chloride Flush Syringe 10 Ml IV 10 ml BID SMITHA Administration Sodium Chloride 10 ml 08/11/19 20:03 08/15/19 06:22 Sodium Chloride Flush Syringe 10 Ml IV 10 ml PRN PRN Administration LINE FLUSH Spironolactone 25 mg 08/14/19 13:00 08/15/19 09:11 Aldactone PO 25 mg QDAY SMITHA Administration
--- NOTE | 2019-08-15 14:26 | Ultrasound Report ---
ULTRASOUND ABDOMEN LIMITED HISTORY: Ascites TECHNIQUE: Transabdominal ultrasound. FINDINGS: Targeted ultrasound was performed in the 4 quadrants of the abdomen demonstrating small ascites in al l 4 quadrants. No complexity is appreciated. IMPRESSION: Small ascites in all 4 quadrants. Signer Name: Lion Carney Jr, MD Signed: 08/15/2019 2:21 PM Workstation Name: [id number]
[2019-08-15] MEDS: PRAVASTATIN 40 MG TAB PO SCH (22:44)
[2019-08-15] MEDS: SENNOSIDES 8.6 MG TAB PO SCH (22:44)
[2019-08-16 05:24] LABS: Calcium 8.1 mg/dL (8.4-10.2)
[2019-08-16] MEDS: FUROSEMIDE 40 MG/4 ML INJ IV SCH ×2 (06:12→17:21)
[2019-08-16] MEDS: ISOSORBIDE DINITRATE 20 MG TAB PO SCH ×3 (06:13→22:31)
[2019-08-16] MEDS: INSULIN LISPRO 100 UNIT/ML SUB-Q SCH ×4 (08:42→22:39)
--- NOTE | 2019-08-16 10:24 | Progress Note ---
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 EF 15-20% by echo 11/2018. Hypertension Diabetes Noncompliant with medications and outpatient cardiac follow up. Recommendations: Strict I's and O's Advised fluid/sodium restriction. Spoke to nurse to assist with this. Continue aggressive medical therapy for systolic heart failure including trial of intravenous milrinone therapy for an additional 24 hrs. Subjective Date of service: 08/16/19 Interval history: IV milrinone continues. Patient is resting in bed comfortably. It appears the patient is noncompliant with fluid restriction. Stable sinus rhythm on telemetry. Objective Vital Signs Temp Pulse Pulse Pulse Resp BP BP 08/16/19 08:36 80 08/16/19 08:16 97.7 F 75 18 123/56 08/16/19 06:13 64 139/60 08/16/19 04:05 98.8 F 64 20 139/60 08/15/19 23:37 97.3 F L 68 18 143/62 08/15/19 22:47 134/60 08/15/19 22:44 71 134/60 08/15/19 22:05 63 63 18 08/15/19 19:57 98.4 F 63 19 118/54 08/15/19 19:35 58 L 08/15/19 16:21 98.4 F 67 19 120/52 08/15/19 14:43 104/89 Pulse Ox 08/16/19 08:36 08/16/19 08:16 97 08/16/19 06:13 08/16/19 04:05 98 08/15/19 23:37 98 08/15/19 22:47 08/15/19 22:44 08/15/19 22:05 97 08/15/19 19:57 97 08/15/19 19:35 08/15/19 16:21 95 08/15/19 14:43 - Physical Examination General: No Apparent Distress HEENT: Positive: PERRL Neck: Positive: trachea midline Cardiac: Positive: Reg Rate and Rhythm Lungs: Positive: Decreased Breath Sounds Neuro: Positive: Grossly Intact Abdomen: Positive: Ascites Extremities: Present: +1 Edema - Labs and Meds Comprehensive Metabolic Panel 08/16/19 Range/Units 03:12 Sodium 144 (137-145) mmol/L Potassium 4.8 (3.6-5.0) mmol/L Chloride 110.5 H (98-107) mmol/L Carbon Dioxide 18 L (22-30) mmol/L BUN 49 H (9-20) mg/dL Creatinine 3.0 H (0.8-1.5) mg/dL Glucose 82 (75-100) mg/dL Calcium 8.1 L (8.4-10.2) mg/dL <KUNAL HUDDLESTON - Last Filed: 08/23/19 10:08> Assessment and Plan I have seen and evaluated the patient myself, and agree with the assessment and plan.
[2019-08-16] MEDS: carvediloL 12.5 MG TAB PO SCH ×2 (10:44→22:31)
[2019-08-16] MEDS: MILRINONE-D5W 20 MG/100 ML 20 MG/100 ML BAG IV SCH (10:44)
[2019-08-16] MEDS: ASPIRIN 81 MG TAB CHEW PO SCH (10:44)
[2019-08-16] MEDS: SPIRONOLACTONE 25 MG TAB PO SCH (10:44)
[2019-08-16] MEDS: NIFEdipine XL 60 MG TAB PO SCH (10:45)
[2019-08-16] MEDS: ENOXAPARIN 40 MG/0.4 ML INJ SUB-Q SCH (10:45)
[2019-08-16] MEDS: FAMOTIDINE 10 MG TAB PO SCH ×2 (10:45→22:31)
[2019-08-16] MEDS: hydrALAZINE 100 MG TAB PO SCH ×3 (11:21→20:35)
--- NOTE | 2019-08-16 15:49 | Progress Note ---
Assessment and Plan - Patient Problems (1) Acute exacerbation of congestive heart failure Current Visit: Yes Status: Acute Qualifiers: Heart failure type: combined systolic and diastolic Qualified Code(s): I50.43 - Acute on chronic combined systolic (congestive) and diastolic (congestive) heart failure Plan to address problem: Patient is severely decompensated and needs admission for management of his CHF exacerbation Echocardiogram last admission during November 2018 shows ejection fraction of 15- 20% with severely depressed left ventricular systolic function.\ Patient has severely swollen scrotum and penis. Patient initiated on IV Lasix 40 mg every 12 Daily intake and output Daily weights Repeat echocardiogram was not ordered because it was done in November 2018. Last echocardiogram showed ejection fraction of 15-20% and global left ventricular systolic function depression and four-chamber dilated cardiomyopathy On Milrinone drip (2) Hypertensive emergency Current Visit: Yes Status: Acute Plan to address problem: Home blood pressure medication started and adjusted Hydralazine 10 mg every 3 hours IV when necessary Hydralazine IV given Coreg increased from 3.125 every 12hrs to 12.5 every q12 We will add hydralazine by mouth for afterload reduction BP under better control (3) Type 2 diabetes mellitus Current Visit: Yes Status: Chronic Qualifiers: Diabetes mellitus terminal system operator insulin use: without terminal system operator use Plan to address problem: Continue continue hypoglycemics Hemoglobin A1c--8.0 Moderate dose sliding scale coverage Accu-Cheks before meals and at bedtime (4) Hyperlipidemia Current Visit: Yes Status: Chronic Qualifiers: Hyperlipidemia type: mixed hyperlipidemia Qualified Code(s): E78.2 - Mixed hyperlipidemia Plan to address problem: Continue statins (5) Genital edema, male Current Visit: Yes Status: Acute Plan to address problem: No torsion Swelling should go down with the diuretics No urology consult at this point Urology consult if necessary (6) Microcytosis Current Visit: Yes Status: Acute Plan to address problem: Check for iron levels and B12 and folic acid (7) DVT prophylaxis Current Visit: Yes Status: Acute Plan to address problem: On heparin and GI prophylaxis (8) Discharge planning issues Current Visit: Yes Status: Acute Plan to address problem: Patient maybe discharged if cleared by Cardiolgy Subjective Date of service: 08/16/19 Principal diagnosis: CHF exacerbation Interval history: 64-year-old -[place] male with a history of severe CHF with low ejection fraction of 15-20%, type 2 diabetes and hypertension and hyperlipidemia comes in for shortness of breath with minimal exertion for the last 2 days. Also severe orthopnea. Unable to lie flat. PND attacks in the nighttime. Also severe scrotal and penile swelling. Patient says he has been compliant with his diuretics. Patient was recently discharged in November 2018. Echocardiogram done at that time showed ejection fraction of 15-20% and global left ventricular systolic dysfunction. Patient has class IV NYHA symptoms now. No chest pain. No palpitations. No diaphoresis. Patient states he is compliant with his fluid intake. No recent travel. Interval improvement present Objective - Constitutional Vitals: Vital Signs - 12hr 08/16/19 08/16/19 08/16/19 04:05 06:13 08:16 Temperature 98.8 F 97.7 F Pulse Rate 64 64 75 Respiratory 20 18 Rate Blood Pressure 139/60 139/60 123/56 O2 Sat by Pulse 98 97 Oximetry 08/16/19 08/16/19 08:36 11:50 Temperature 98.4 F Pulse Rate 80 Respiratory 18 Rate Blood Pressure 121/53 O2 Sat by Pulse Oximetry General appearance: Present: no acute distress, well-nourished - EENT Eyes: PERRL, EOM intact ENT: hearing intact, clear oral mucosa Ears: bilateral: normal - Neck Neck: supple, normal ROM - Respiratory Respiratory effort: normal Respiratory: bilateral: CTA, rales (Scattered) - Breasts Breasts: normal - Cardiovascular Heart rate: 78 Rhythm: regular Heart Sounds: Present: S1 & S2. Absent: gallop, rub Extremities: no ischemia, pulses intact, No edema, normal color, Full ROM - Gastrointestinal General gastrointestinal: Present: soft, non-tender, non-distended, normal bowel sounds Rectal Exam: deferred - Genitourinary Male genitourinary: penile edema, scrotal edema - Integumentary Integumentary: clear, warm, dry - Musculoskeletal Musculoskeletal: 1, strength equal bilaterally - Neurologic Neurologic: moves all extremities - Psychiatric Psychiatric: memory intact, appropriate mood/affect, intact judgment & insight - Labs CBC & Chem 7: 08/12/19 03:39 08/17/19 03:29 Labs: Abnormal lab results 08/15/19 08/15/19 08/16/19 Range/Units 16:40 20:25 03:12 Chloride 110.5 H (98-107) mmol/L Carbon Dioxide 18 L (22-30) mmol/L BUN 49 H (9-20) mg/dL Creatinine 3.0 H (0.8-1.5) mg/dL POC Glucose 204 H 240 H (70-105) Calcium 8.1 L (8.4-10.2) mg/dL 08/16/19 08/16/19 Range/Units 08:21 11:57 Chloride (98-107) mmol/L Carbon Dioxide (22-30) mmol/L BUN (9-20) mg/dL Creatinine (0.8-1.5) mg/dL POC Glucose 112 H 160 H (70-105) Calcium (8.4-10.2) mg/dL
--- NOTE | 2019-08-16 15:56 | Consultation ---
History of Present Illness - Reason for Consult Consult date: 08/16/19 acute renal failure, chronic renal failure - History of Present Illness The patient is a 64 YO AAM with history significant for DM type 2, HTN, CHF with EF 15-25%, CKD and Medical non-compliance who presented to [facility] ED 08/11 with c/o sob, swelling involving both legs, scrotum and penis of 2 days duration. Patient also reports chronic two-pillow orthopnea, occasional PND and intermittent dry cough. He denies any hemoptysis, cp, fever, chills, N, V, D, dizziness, syncope, dysuria or hematuria. Initial BP was around 200/110. Creatinine level progressively increased to 3 from 2 on admission. Nephrology was consulted for further evaluation. Past History Past Medical History: diabetes, hypertension, hyperlipidemia, other (CHF) Social history: other (history of smoking). denies: prescription drug abuse, IV drug use Medications and Allergies Allergies Allergy/AdvReac Type Severity Reaction Status Date / Time lisinopril Allergy Unknown Verified 08/11/19 14:13 Home Medications Medication Instructions Recorded Confirmed Last Taken Type Aspirin 81 mg PO DAILY 11/23/18 08/16/19 11/23/18 History Simvastatin 20 mg PO DAILY 11/23/18 08/16/19 11/23/18 History glipiZIDE XL [Glucotrol Xl] 10 mg PO DAILY 11/23/18 08/16/19 11/23/18 History Losartan [Cozaar] 100 mg PO QDAY #30 tablet 11/26/18 08/16/19 Unknown Rx NIFEdipine XL [Procardia Xl] 60 mg PO QDAY #30 tablet 11/26/18 08/16/19 Unknown Rx Sennosides Tab [Senokot] 17.2 mg PO QHS #30 tablet 11/26/18 08/16/19 Unknown Rx Torsemide [Demadex] 40 mg PO DAILY #60 tablet 11/26/18 08/16/19 Unknown Rx carvediloL [Coreg] 3.125 mg PO BID #60 tablet 11/26/18 08/16/19 Unknown Rx Active Meds: Active Medications Acetaminophen (Tylenol) 650 mg PO Q4H PRN PRN Reason: Pain MILD(1-3)/Fever >100.5/JONES Aspirin (Baby Aspirin) 81 mg PO DAILY SMITHA Last Admin: 08/16/19 10:44 Dose: 81 mg Documented by: Carvedilol (Coreg) 12.5 mg PO BID [facility] [place] Last Admin: 08/16/19 10:44 Dose: 12.5 mg Documented by: Enoxaparin Sodium (Enoxaparin) 30 mg SUB-Q QDAY [facility] [place] Famotidine (Pepcid) 10 mg PO BID [facility] [place] Last Admin: 08/16/19 10:45 Dose: 10 mg Documented by: Furosemide (Lasix) 40 mg IV 0600,1800 [facility] [place] Last Admin: 08/16/19 06:12 Dose: 40 mg Documented by: Hydralazine HCl (Apresoline) 10 mg IV Q3H PRN PRN Reason: Blood Pressure Hydralazine HCl (Apresoline) 50 mg PO TID [facility] [place] Last Admin: 08/16/19 14:15 Dose: 50 mg Documented by: Hydromorphone HCl (Dilaudid) 0.5 mg IV Q3H PRN PRN Reason: Pain , Severe (7-10) Milrinone Lactate/Dextrose (Milrinone-D5w 20 Mg/100 Ml) 20 mg in 100 mls @ 7.931 mls/hr IV TITR [facility] [place] Stop: 08/17/19 10:59 Last Admin: 08/16/19 10:44 Dose: 0.375 mcg/kg/min, 7.931 mls/hr Documented by: Insulin Human Lispro (Humalog) 0 unit SUB-Q ACHS [facility] [place]; Protocol Last Admin: 08/16/19 13:30 Dose: Not Given Documented by: Isosorbide Dinitrate (Isordil Titradose) 20 mg PO Q8HR [facility] [place] Last Admin: 08/16/19 14:15 Dose: 20 mg Documented by: Nifedipine (Procardia Xl) 60 mg PO QDAY [facility] [place] Last Admin: 08/16/19 10:45 Dose: 60 mg Documented by: Ondansetron HCl (Zofran) 4 mg IV Q8H PRN PRN Reason: Nausea And Vomiting Oxycodone/Acetaminophen (Percocet 5/325) 1 tab PO Q6H PRN PRN Reason: Pain, Moderate (4-6) Oxymetazoline HCl (Vicks Sinex) 2 spray NS Q12H PRN PRN Reason: Nasal Congestion Last Admin: 08/13/19 21:52 Dose: 2 spray Documented by: Pravastatin Sodium (Pravachol) 40 mg PO QHS [facility] [place] Last Admin: 08/15/19 22:44 Dose: 40 mg Documented by: Senna (Senokot) 17.2 mg PO QHS [facility] [place] Last Admin: 08/15/19 22:44 Dose: 17.2 mg Documented by: Sodium Chloride (Sodium Chloride Flush Syringe 10 Ml) 10 ml IV BID [facility] [place] Last Admin: 08/16/19 10:45 Dose: 10 ml Documented by: Sodium Chloride (Sodium Chloride Flush Syringe 10 Ml) 10 ml IV PRN PRN PRN Reason: LINE FLUSH Last Admin: 08/15/19 06:22 Dose: 10 ml Documented by: Spironolactone (Aldactone) 25 mg PO QDAY [facility] [place] Last Admin: 08/16/19 10:44 Dose: 25 mg Documented by: Review of Systems Constitutional: no weight loss, no weight gain, no fever, no chills, no anorexia, no fatigue, no weakness, no poor appetite Cardiovascular: orthopnea, edema, shortness of breath, dyspnea on exertion, high blood pressure, leg edema, decreased exercise tolerance, no chest pain, no palpitations, no syncope, no lightheadedness Respiratory: cough, shortness of breath, dyspnea on exertion, no hemoptysis, no home oxygen Gastrointestinal: no abdominal pain, no nausea, no vomiting, no diarrhea, no melena, no jaundice Genitourinary Male: no dysuria, no hematuria Musculoskeletal: no morning stiffness, no muscle weakness, no muscle cramps Integumentary: no redness, no wounds, no jaundice Neurological: no syncope, no aphasia, no change in speech, no change in mentation, no confusion, no memory loss Exam - Vital Signs Vital signs: Vital Signs Temp Pulse Resp BP Pulse Ox 97.3 F L 95 H 22 195/119 99 08/11/19 14:18 08/11/19 14:18 08/11/19 14:18 08/11/19 14:18 08/11/19 14:18 - General Appearance General appearance: well-developed, well-nourished, appears stated age, other (not in distress) EENT: ATNC, PERRL, mucous membranes moist, hearing intact, vision intact Neck: Present: neck supple, trachea midline, JVD/HJR Respiratory: Rales Heart: regular, S1S2, no murmurs Gastrointestinal: Present: normoactive bowel sounds, distended, other (ascites noted). Absent: tenderness Integumentary: no rash, warm and dry Neurologic: no focal deficit, no asterixis, alert and oriented x3 Musculoskeletal: Present: other (LE edema noted) Psychiatric: cooperative Results - Lab Results 08/12/19 03:39 08/16/19 03:12 Most recent lab results Calcium 8.1 mg/dL (8.4-10.2) L 08/16/19 03:12 Magnesium 2.30 mg/dL (1.7-2.3) 08/13/19 07:11 Assessment and Plan 1. Acute kidney injury: Vasomotor JYOTI superimposed on CKD in the setting of decompensated CHF and fluctuation in the BP. Urine studies and Renal US ordered. Creatinine level trending upwards. Monitor renal function. Renal prognosis is guarded. Avoid nephrotoxic agents. Meds dosage based on GFR. 2. FEN: Volume overload, on Lasix. Metabolic acidosis, monitor. Monitor lytes. 3. Acute systolic heart failure: H/o non-ischemic CMP. EF 15-20% by echo 11/2018. No reversible ischemia by persantine MPI 11/2018. Followed by Cards. 4. Ascites. 5. Hypertension: Monitor BP. 6. Noncompliant with medications and outpatient cardiac follow up.
[2019-08-16] MEDS: OXYMETAZOLINE 0.05% NASAL SPRAY NS PRN (20:35)
[2019-08-16] MEDS: SENNOSIDES 8.6 MG TAB PO SCH (22:31)
[2019-08-16] MEDS: PRAVASTATIN 40 MG TAB PO SCH (22:31)
[2019-08-17] MEDS: MILRINONE-D5W 20 MG/100 ML 20 MG/100 ML BAG IV SCH (00:52)
[2019-08-17] MEDS: FUROSEMIDE 40 MG/4 ML INJ IV SCH ×2 (06:16→17:56)
[2019-08-17] MEDS: ISOSORBIDE DINITRATE 20 MG TAB PO SCH ×3 (06:16→22:14)
[2019-08-17] MEDS: INSULIN LISPRO 100 UNIT/ML SUB-Q SCH ×4 (08:00→22:19)
--- NOTE | 2019-08-17 08:10 | Progress Note ---
Assessment and Plan 1. Acute kidney injury: Vasomotor JYOTI superimposed on CKD in the setting of decompensated CHF and fluctuation in the BP. Urine studies and Renal US ordered. Creatinine level trending upwards. Monitor renal function. Renal prognosis is guarded. Avoid nephrotoxic agents. Meds dosage based on GFR. 2. FEN: Hyperkalemia, kayexalate ordered. Volume overload, on Lasix. Metabolic acidosis, monitor. Monitor lytes. 3. Acute systolic heart failure: H/o non-ischemic CMP. EF 15-20% by echo 11/2018. No reversible ischemia by persantine MPI 11/2018. Followed by Cards. 4. Ascites. 5. Hypertension: Monitor BP. 6. Noncompliant with medications and outpatient cardiac follow up. Examination: General appearance: well-developed, well-nourished, appears stated age, not in distress HEENT: ATNC, NASIM, mucous membranes moist, hearing intact, vision intact Neck: neck supple, trachea midline, JVD/HJR Respiratory: bibasal Rales Heart: regular, S1S2, no murmurs Gastrointestinal: normoactive bowel sounds, distended, NT, ascites noted Integumentary: no rash, warm and dry Neurologic: no focal deficit, no asterixis, alert and oriented x3 Ext: trace LE edema noted Psychiatric: cooperative Subjective Date of service: 08/17/19 Principal diagnosis: CHF exacerbation Interval history: Patient was seen and examined at the bedside. Doing ok. Objective - Vital Signs Vital signs: Vital Signs - 12hr 08/16/19 08/16/19 08/16/19 20:35 22:15 22:31 Temperature Pulse Rate 64 62 Pulse Rate [ 67 Apical] Pulse Rate [ 67 From Monitor] Respiratory 18 Rate Blood Pressure 125/53 O2 Sat by Pulse 98 Oximetry 08/16/19 08/16/19 08/17/19 22:32 23:32 04:11 Temperature 97.5 F L 97.7 F Pulse Rate 67 63 Pulse Rate [ Apical] Pulse Rate [ From Monitor] Respiratory 20 20 Rate Blood Pressure 125/53 146/62 151/60 O2 Sat by Pulse 97 98 Oximetry 08/17/19 06:16 Temperature Pulse Rate 63 Pulse Rate [ Apical] Pulse Rate [ From Monitor] Respiratory Rate Blood Pressure 151/60 O2 Sat by Pulse Oximetry - Lab 08/12/19 03:39 08/17/19 15:56 Most recent lab results Calcium 8.0 mg/dL (8.4-10.2) L 08/17/19 03:29 Magnesium 2.30 mg/dL (1.7-2.3) 08/13/19 07:11 Medications & Allergies - Medications Allergies/Adverse Reactions: Allergies lisinopril Allergy (Verified 08/11/19 14:13) Unknown Home Medications: Home Medications Medication Instructions Recorded Confirmed Last Taken Type Aspirin 81 mg PO DAILY 11/23/18 08/16/19 11/23/18 History Simvastatin 20 mg PO DAILY 11/23/18 08/16/19 11/23/18 History glipiZIDE XL [Glucotrol Xl] 10 mg PO DAILY 11/23/18 08/16/19 11/23/18 History Losartan [Cozaar] 100 mg PO QDAY #30 tablet 11/26/18 08/16/19 Unknown Rx NIFEdipine XL [Procardia Xl] 60 mg PO QDAY #30 tablet 11/26/18 08/16/19 Unknown Rx Sennosides Tab [Senokot] 17.2 mg PO QHS #30 tablet 11/26/18 08/16/19 Unknown Rx Torsemide [Demadex] 40 mg PO DAILY #60 tablet 11/26/18 08/16/19 Unknown Rx carvediloL [Coreg] 3.125 mg PO BID #60 tablet 11/26/18 08/16/19 Unknown Rx Active Medications: Generic Name Dose Route Start Last Admin Trade Name Freq PRN Reason Stop Dose Admin Acetaminophen 650 mg 08/11/19 20:03 Tylenol PO Q4H PRN Pain MILD(1-3)/Fever >100.5/JONES Aspirin 81 mg 08/11/19 21:00 08/16/19 10:44 Baby Aspirin PO 81 mg DAILY SMITHA Administration Carvedilol 12.5 mg 08/11/19 22:00 08/16/19 22:31 Coreg PO 12.5 mg BID SMITHA Administration Enoxaparin Sodium 30 mg 08/17/19 10:00 Enoxaparin SUB-Q QDAY SMITHA Famotidine 10 mg 08/11/19 22:00 08/16/19 22:31 Pepcid PO 10 mg BID SMITHA Administration Furosemide 40 mg 08/12/19 06:00 08/17/19 06:16 Lasix IV 40 mg 0600,1800 SMITHA Administration Hydralazine HCl 10 mg 08/11/19 20:54 Apresoline IV Q3H PRN Blood Pressure Hydralazine HCl 50 mg 08/15/19 12:28 08/16/19 20:35 Apresoline PO 50 mg TID SMITHA Administration Hydromorphone HCl 0.5 mg 08/11/19 20:03 Dilaudid IV Q3H PRN Pain , Severe (7-10) Milrinone Lactate/Dextrose 20 mg in 100 mls @ 7.931 mls/hr 08/14/19 11:00 08/17/19 00:52 Milrinone-D5w 20 Mg/100 Ml IV 08/17/19 10:59 0.375 mcg/kg/min TITR SMIHTA 7.931 mls/hr Administration 0.375 MCG/KG/MIN Insulin Human Lispro 0 unit 08/11/19 22:00 08/16/19 22:39 Humalog SUB-Q 1 unit ACHS SMITHA Administration Protocol Isosorbide Dinitrate 20 mg 08/14/19 14:00 08/17/19 06:16 Isordil Titradose PO 20 mg Q8HR SMITHA Administration Nifedipine 60 mg 08/14/19 13:00 08/16/19 10:45 Procardia Xl PO 60 mg QDAY SMITHA Administration Ondansetron HCl 4 mg 08/11/19 20:03 Zofran IV Q8H PRN Nausea And Vomiting Oxycodone/Acetaminophen 1 tab 08/11/19 20:03 Percocet 5/325 PO Q6H PRN Pain, Moderate (4-6) Oxymetazoline HCl 2 spray 08/12/19 23:42 08/16/19 20:35 Vicks Sinex NS 2 spray Q12H PRN Administration Nasal Congestion Pravastatin Sodium 40 mg 08/11/19 22:00 08/16/19 22:31 Pravachol PO 40 mg QHS SMITHA Administration Senna 17.2 mg 08/11/19 22:00 08/16/19 22:31 Senokot PO 17.2 mg QHS SMITHA Administration Sodium Chloride 10 ml 08/11/19 22:00 08/16/19 22:32 Sodium Chloride Flush Syringe 10 Ml IV 10 ml BID SMITHA Administration Sodium Chloride 10 ml 08/11/19 20:03 08/15/19 06:22 Sodium Chloride Flush Syringe 10 Ml IV 10 ml PRN PRN Administration LINE FLUSH Spironolactone 25 mg 08/14/19 13:00 08/16/19 10:44 Aldactone PO 25 mg QDAY SMITHA Administration
[2019-08-17] MEDS: hydrALAZINE 100 MG TAB PO SCH ×3 (08:20→22:15)
[2019-08-17] MEDS ORDERED: SODIUM POLYSTYRENE 15 GM/60 ML ORAL LIQD PR NR (08:30)
[2019-08-17] MEDS: ENOXAPARIN 30 MG/0.3 ML INJ SUB-Q SCH (09:22)
[2019-08-17] MEDS: FAMOTIDINE 10 MG TAB PO SCH ×2 (09:22→22:16)
[2019-08-17] MEDS: ASPIRIN 81 MG TAB CHEW PO SCH (09:23)
[2019-08-17] MEDS: carvediloL 12.5 MG TAB PO SCH ×2 (09:25→22:15)
[2019-08-17] MEDS: NIFEdipine XL 60 MG TAB PO SCH (09:25)
--- NOTE | 2019-08-17 11:57 | Progress Note ---
Assessment and Plan Acute systolic heart failure Ascities, small amount by abdominal u/s Anasarca HTN -better Chronic renal failure Hx of Non-ischemic CMP no reversible ischemia by persantine MPI 11/2018. EF 15-20% by echo 11/2018. Hypertension Diabetes Noncompliant with medications and outpatient cardiac follow up. Recommendations: Continue fluid/sodium restriction. Continue medical therapy for systolic heart failure. Subjective Date of service: 08/17/19 Principal diagnosis: CHF exacerbation Interval history: IV milrinone continues. For completion today. Patient is resting in bed comfortably. Objective Vital Signs Temp Pulse Pulse Pulse Resp BP Pulse Ox 08/17/19 10:00 78 78 17 97 08/17/19 09:25 65 151/63 08/17/19 06:16 63 151/60 08/17/19 04:11 97.7 F 63 20 151/60 98 08/16/19 23:32 97.5 F L 67 20 146/62 97 08/16/19 22:32 125/53 08/16/19 22:31 62 125/53 08/16/19 22:15 67 67 18 98 08/16/19 20:35 64 08/16/19 19:18 97.3 F L 67 18 153/69 98 - Physical Examination General: No Apparent Distress HEENT: Positive: PERRL Neck: Positive: trachea midline Cardiac: Positive: Reg Rate and Rhythm Lungs: Positive: Decreased Breath Sounds Neuro: Positive: Grossly Intact Extremities: Present: +1 Edema - Labs and Meds Comprehensive Metabolic Panel 08/17/19 Range/Units 03:29 Sodium 142 (137-145) mmol/L Potassium 5.2 H (3.6-5.0) mmol/L Chloride 110.9 H (98-107) mmol/L Carbon Dioxide 20 L (22-30) mmol/L BUN 51 H (9-20) mg/dL Creatinine 3.3 H (0.8-1.5) mg/dL Glucose 90 (75-100) mg/dL Calcium 8.0 L (8.4-10.2) mg/dL - Imaging and Cardiology EKG: report reviewed (sinus rhythm heart rate of 80/m, LVH)
--- NOTE | 2019-08-17 12:20 | Progress Note ---
Assessment and Plan Assessment and plan: Acute on chronic systolic HF with EF of 15-20% -on CHF protocol including IV milrinone therapy. -cardiology following Hypertensive emergency on admission -BP currently low normal -cont coreg, isordil and nifedipine -hydralazine dose reduced to 50 mg TID -monitor BP Scrotal edema -likely due to the acute CHF, improving -Testicular US reported as suspicious for incomplete torsion which is less likely DM2 with hypoglycemia -stable -cont SSI and hypoglycemic protocol Metabolic acidosis -level improving, will monitor CKD stage 3 -stable -will monitor HLD -cont statin Medication non-compliance -pt counseled DVT ppx: Lovenox Disp: d/c per clinical course and clearance by cardiology History Interval history: No new issues overnight. Hospitalist Physical - Constitutional Vitals: Temp Pulse Resp BP Pulse Ox 97.7 F 78 17 151/63 97 08/17/19 04:11 08/17/19 10:00 08/17/19 10:00 08/17/19 09:25 08/17/19 10:00 General appearance: Present: no acute distress, well-nourished - EENT Eyes: Present: PERRL, EOM intact ENT: hearing intact, clear oral mucosa, dentition normal - Neck Neck: Present: supple, normal ROM - Respiratory Respiratory effort: normal Respiratory: bilateral: CTA - Cardiovascular Rhythm: regular Heart Sounds: Present: S1 & S2. Absent: gallop, rub - Extremities Extremities: no ischemia, No edema, Full ROM - Abdominal General gastrointestinal: soft, non-tender, non-distended, normal bowel sounds - Integumentary Integumentary: Present: clear, warm, dry - Neurologic Neurologic: CNII-XII intact, moves all extremities Results - Labs CBC & Chem 7: 08/12/19 03:39 08/17/19 03:29 Labs: Laboratory Last Values WBC 4.2 K/mm3 (4.5-11.0) L 08/12/19 03:39 RBC 5.12 M/mm3 (3.65-5.03) H 08/12/19 03:39 Hgb 12.7 gm/dl (11.8-15.2) 08/12/19 03:39 Hct 39.7 % (35.5-45.6) 08/12/19 03:39 MCV 78 fl (84-94) L 08/12/19 03:39 MCH 25 pg (28-32) L 08/12/19 03:39 MCHC 32 % (32-34) 08/12/19 03:39 RDW 20.3 % (13.2-15.2) H 08/12/19 03:39 Plt Count 164 K/mm3 (140-440) 08/12/19 03:39 Lymph % (Auto) 24.7 % (13.4-35.0) 08/12/19 03:39 Izard % (Auto) 7.3 % (0.0-7.3) 08/12/19 03:39 Eos % (Auto) 1.3 % (0.0-4.3) 08/12/19 03:39 Baso % (Auto) 1.9 % (0.0-1.8) H 08/12/19 03:39 Lymph # 1.0 K/mm3 (1.2-5.4) L 08/12/19 03:39 Izard # 0.3 K/mm3 (0.0-0.8) 08/12/19 03:39 Eos # 0.1 K/mm3 (0.0-0.4) 08/12/19 03:39 Baso # 0.1 K/mm3 (0.0-0.1) 08/12/19 03:39 Seg Neutrophils % 64.8 % (40.0-70.0) 08/12/19 03:39 Seg Neutrophils # 2.7 K/mm3 (1.8-7.7) 08/12/19 03:39 Sodium 142 mmol/L (137-145) 08/17/19 03:29 Potassium 5.2 mmol/L (3.6-5.0) H 08/17/19 03:29 Chloride 110.9 mmol/L (98-107) H 08/17/19 03:29 Carbon Dioxide 20 mmol/L (22-30) L 08/17/19 03:29 Anion Gap 16 mmol/L 08/17/19 03:29 BUN 51 mg/dL (9-20) H 08/17/19 03:29 Creatinine 3.3 mg/dL (0.8-1.5) H 08/17/19 03:29 Estimated GFR 23 ml/min 08/17/19 03:29 BUN/Creatinine Ratio 15 % 08/17/19 03:29 Glucose 90 mg/dL (75-100) 08/17/19 03:29 POC Glucose 87 (70-105) 08/17/19 07:49 Hemoglobin A1c 8.0 % (4-6) H 08/11/19 14:27 Calcium 8.0 mg/dL (8.4-10.2) L 08/17/19 03:29 Magnesium 2.30 mg/dL (1.7-2.3) 08/13/19 07:11 Iron 31 ug/dL (49-181) L 08/12/19 00:10 TIBC 281 mcg/dL (250-450) 08/12/19 00:10 % Saturation 11.03 % 08/12/19 00:10 Transferrin 235 mg/dl (180-329) 08/12/19 00:10 Total Bilirubin 0.40 mg/dL (0.1-1.2) 08/12/19 03:39 AST 30 units/L (5-40) 08/12/19 03:39 ALT 19 units/L (7-56) 08/12/19 03:39 Alkaline Phosphatase 125 units/L (35-129) 08/12/19 03:39 NT-Pro-B Natriuret Pep 66902 pg/mL (0-900) H 08/11/19 14:57 Total Protein 6.5 g/dL (6.3-8.2) 08/12/19 03:39 Albumin 2.5 g/dL (3.9-5) L 08/12/19 03:39 Albumin/Globulin Ratio 0.6 % 08/12/19 03:39 Vitamin B12 1732 pg/mL (211-911) H 08/12/19 00:10 RBC Folic Acid 872 ng/mL (>280) 08/12/19 00:10 Urine Color Yellow (Yellow) 08/11/19 18:03 Urine Turbidity Clear (Clear) 08/11/19 18:03 Urine pH 5.0 (5.0-7.0) 08/11/19 18:03 Ur Specific [place] 1.011 (1.003-1.030) 08/11/19 18:03 Urine Protein 100 mg/dl mg/dL (Negative) 08/11/19 18:03 Urine Glucose (UA) 50 mg/dL (Negative) 08/11/19 18:03 Urine Ketones Neg mg/dL (Negative) 08/11/19 18:03 Urine Blood Sm (Negative) 08/11/19 18:03 Urine Nitrite Neg (Negative) 08/11/19 18:03 Urine Bilirubin Neg (Negative) 08/11/19 18:03 Urine Urobilinogen < 2.0 mg/dL (<2.0) 08/11/19 18:03 Ur Leukocyte Esterase Neg (Negative) 08/11/19 18:03 Urine WBC (Auto) 1.0 /HPF (0.0-6.0) 08/11/19 18:03 Urine RBC (Auto) 4.0 /HPF (0.0-6.0) 08/11/19 18:03 U Epithel Cells (Auto) < 1.0 /HPF (0-13.0) 08/11/19 18:03 Urine Bacteria (Auto) 1+ /HPF (Negative) 08/11/19 18:03 Hyaline Casts 3 /LPF 08/11/19 18:03 Urine Mucus Few /HPF 08/11/19 18:03 Active Medications - Current Medications Current Medications: Generic Name Dose Route Start Last Admin Trade Name Freq PRN Reason Stop Dose Admin Acetaminophen 650 mg 08/11/19 20:03 Tylenol PO Q4H PRN Pain MILD(1-3)/Fever >100.5/JONES Aspirin 81 mg 08/11/19 21:00 08/17/19 09:23 Baby Aspirin PO 81 mg DAILY SMITHA Administration Carvedilol 12.5 mg 08/11/19 22:00 08/17/19 09:25 Coreg PO 12.5 mg BID SMITHA Administration Enoxaparin Sodium 30 mg 08/17/19 10:00 08/17/19 09:22 Enoxaparin SUB-Q 30 mg QDAY SMITHA Administration Famotidine 10 mg 08/11/19 22:00 08/17/19 09:22 Pepcid PO 10 mg BID SMITHA Administration Furosemide 40 mg 08/12/19 06:00 08/17/19 06:16 Lasix IV 40 mg 0600,1800 SMITHA Administration Hydralazine HCl 10 mg 08/11/19 20:54 Apresoline IV Q3H PRN Blood Pressure Hydralazine HCl 50 mg 08/15/19 12:28 08/17/19 08:20 Apresoline PO 50 mg TID SMITHA Administration Hydromorphone HCl 0.5 mg 08/11/19 20:03 Dilaudid IV Q3H PRN Pain , Severe (7-10) Insulin Human Lispro 0 unit 08/11/19 22:00 08/17/19 08:00 Humalog SUB-Q Not Given ACHS [facility] Protocol Isosorbide Dinitrate 20 mg 08/14/19 14:00 08/17/19 06:16 Isordil Titradose PO 20 mg Q8HR SMITHA Administration Nifedipine 60 mg 08/14/19 13:00 08/17/19 09:25 Procardia Xl PO 60 mg QDAY SMITHA Administration Ondansetron HCl 4 mg 08/11/19 20:03 Zofran IV Q8H PRN Nausea And Vomiting Oxycodone/Acetaminophen 1 tab 08/11/19 20:03 Percocet 5/325 PO Q6H PRN Pain, Moderate (4-6) Oxymetazoline HCl 2 spray 08/12/19 23:42 08/16/19 20:35 Vicks Sinex NS 2 spray Q12H PRN Administration Nasal Congestion Pravastatin Sodium 40 mg 08/11/19 22:00 08/16/19 22:31 Pravachol PO 40 mg QHS SMITHA Administration Senna 17.2 mg 08/11/19 22:00 08/16/19 22:31 Senokot PO 17.2 mg QHS SMITHA Administration Sodium Chloride 10 ml 08/11/19 22:00 08/17/19 09:23 Sodium Chloride Flush Syringe 10 Ml IV 10 ml BID SMITHA Administration Sodium Chloride 10 ml 08/11/19 20:03 08/15/19 06:22 Sodium Chloride Flush Syringe 10 Ml IV 10 ml PRN PRN Administration LINE FLUSH
[2019-08-17 13:08] LABS: Creatinine,Urine 26.8 mg/dL (0.1-20.0)
[2019-08-17] MEDS: OXYMETAZOLINE 0.05% NASAL SPRAY NS PRN (17:57)
[2019-08-17] MEDS ORDERED: SODIUM POLYSTYRENE 15 GM/60 ML ORAL LIQD PO SCH (18:18)
[2019-08-17] MEDS: PRAVASTATIN 40 MG TAB PO SCH (22:16)
[2019-08-17] MEDS: SENNOSIDES 8.6 MG TAB PO SCH (22:18)
[2019-08-17] MEDS ORDERED: SODIUM POLYSTYRENE 15 GM/60 ML ORAL LIQD PO ONE (23:00)
--- NOTE | 2019-08-18 01:39 | Ultrasound Report ---
ULTRASOUND RENAL INDICATION: Acute renal failure.. COMPARISON: Limited abdominal ultrasound from 08/15/2019. FINDINGS: RIGHT KIDNEY: Size: 10.2 x 3.9 x 4.6 cm. Echogenicity: Increased. Cortical thickness: Mild thinning, 1.2 cm. Hydronephrosis: None. Cyst or mass: None. Stones: None. LEFT KIDNEY: Size: 9.7 x 5.2 x 3.6 cm. Echogenicity: Increased. Cortical thickness: Normal, 2.1 cm. Hydronephrosis: None. Cyst or mass: None. Stones: None. Urinary Bladder: No significant abnormality. Free Fluid: A small amount of ascites is seen along the pelvis and right upper quadrant. Additional Findings: None. IMPRESSION 1. Increased renal cortical echotexture is consistent with the parotid history of acute renal failure . 2. Small amount of ascites. 3. Mild right renal cortical thinning. Signer Name: Elia Nixon MD Signed: 08/18/2019 1:35 AM Workstation Name: [id number]
[2019-08-18] MEDS: ISOSORBIDE DINITRATE 20 MG TAB PO SCH (05:24)
[2019-08-18] MEDS: FUROSEMIDE 40 MG/4 ML INJ IV SCH (05:25)
[2019-08-18] MEDS: INSULIN LISPRO 100 UNIT/ML SUB-Q SCH (08:39)
[2019-08-18] MEDS: hydrALAZINE 100 MG TAB PO SCH (09:42)
--- NOTE | 2019-08-18 09:55 | Progress Note ---
Assessment and Plan Acute systolic heart failure Ascities, small amount by abdominal u/s Anasarca HTN -better Chronic renal failure Hx of Non-ischemic CMP no reversible ischemia by persantine MPI 11/2018. EF 15-20% by echo 11/2018. Hypertension Diabetes Noncompliant with medications and outpatient cardiac follow up. Recommendations: Continue fluid/sodium restriction. Continue medical therapy for systolic heart failure. Patient is stable thereafter for cardiac discharge. Subjective Date of service: 08/18/19 Principal diagnosis: CHF exacerbation Interval history: Patient is resting in bed comfortably. He reports his breathing is better. Objective Vital Signs Temp Pulse Pulse Pulse Resp BP Pulse Ox 08/18/19 05:24 62 191/81 08/18/19 05:13 98.0 F 69 20 191/81 100 08/18/19 00:12 98.0 F 62 20 154/75 90 08/17/19 22:15 68 145/72 08/17/19 22:14 68 145/72 08/17/19 22:00 63 70 70 18 98 08/17/19 19:34 98.0 F 59 L 20 145/72 99 08/17/19 16:08 59 L 121/56 100 08/17/19 14:08 63 114/52 08/17/19 12:02 59 L 144/56 92 08/17/19 10:00 70 78 78 17 97 - Physical Examination General: No Apparent Distress HEENT: Positive: PERRL Neck: Positive: trachea midline Cardiac: Positive: Reg Rate and Rhythm Lungs: Positive: Decreased Breath Sounds Neuro: Positive: Grossly Intact Extremities: Present: +1 Edema - Labs and Meds Comprehensive Metabolic Panel 08/17/19 Range/Units 15:56 Potassium 5.4 H (3.6-5.0) mmol/L
--- NOTE | 2019-08-18 10:00 | Progress Note ---
Assessment and Plan 1. Acute kidney injury: Vasomotor JYOTI superimposed on CKD in the setting of decompensated CHF and fluctuation in the BP. Renal US negative for hydro. Creatinine level is improving. Monitor renal function. Renal prognosis is guarded. Avoid nephrotoxic agents. Meds dosage based on GFR. 2. FEN: Hyperkalemia, improved. Volume overload, on Lasix. Metabolic acidosis, monitor. Monitor lytes. 3. Acute systolic heart failure: H/o non-ischemic CMP. EF 15-20% by echo 11/2018. No reversible ischemia by persantine MPI 11/2018. Followed by Cards. 4. Ascites. 5. Hypertension: Monitor BP. 6. Noncompliant with medications and outpatient cardiac follow up. If discharged f/u iwth me in 1-2 weeks. Examination: General appearance: well-developed, well-nourished, appears stated age, not in distress HEENT: ATNC, NASIM, mucous membranes moist, hearing intact, vision intact Neck: neck supple, trachea midline, JVD/HJR Respiratory: ctab Heart: regular, S1S2, no murmurs Gastrointestinal: normoactive bowel sounds, distended, NT, ascites noted Integumentary: no rash, warm and dry Neurologic: no focal deficit, no asterixis, alert and oriented x3 Ext: no edema noted Psychiatric: cooperative Subjective Date of service: 08/18/19 Principal diagnosis: CHF exacerbation Interval history: Patient was seen and examined at the bedside. Doing ok. Objective - Vital Signs Vital signs: Vital Signs - 12hr 08/17/19 08/17/19 08/18/19 22:14 22:15 00:12 Temperature 98.0 F Pulse Rate 68 68 62 Respiratory 20 Rate Blood Pressure 145/72 145/72 154/75 O2 Sat by Pulse 90 Oximetry 08/18/19 08/18/19 05:13 05:24 Temperature 98.0 F Pulse Rate 69 62 Respiratory 20 Rate Blood Pressure 191/81 191/81 O2 Sat by Pulse 100 Oximetry - Lab 08/12/19 03:39 08/18/19 10:08 Most recent lab results Calcium 8.0 mg/dL (8.4-10.2) L 08/17/19 03:29 Magnesium 2.30 mg/dL (1.7-2.3) 08/13/19 07:11 Urine Creatinine 26.8 mg/dL (0.1-20.0) H 08/17/19 12:21 Urine Sodium 114 mmol/L 08/17/19 12:21 Medications & Allergies - Medications Allergies/Adverse Reactions: Allergies lisinopril Allergy (Verified 08/11/19 14:13) Unknown Home Medications: Home Medications Medication Instructions Recorded Confirmed Last Taken Type glipiZIDE XL [Glucotrol Xl] 10 mg PO DAILY 11/23/18 08/16/19 11/23/18 History Aspirin [Aspirin BABY CHEW TAB] 81 mg PO DAILY #30 tab.chew 08/18/19 Unknown Rx Furosemide [Lasix TAB] 40 mg PO BID #60 tablet 08/18/19 Unknown Rx Isosorbide Dinitrate [Isordil 20 mg PO Q8HR #90 tablet 08/18/19 Unknown Rx Titradose] NIFEdipine XL [Procardia Xl] 60 mg PO QDAY #30 tablet 08/18/19 Unknown Rx Potassium Chloride [K-Dur] 10 meq PO QDAY #30 tablet 08/18/19 Unknown Rx Sennosides Tab [Senokot] 17.2 mg PO QHS #30 tablet 08/18/19 Unknown Rx Simvastatin 20 mg PO DAILY #30 tab 08/18/19 Unknown Rx carvediloL [Coreg] 12.5 mg PO BID #60 tablet 08/18/19 Unknown Rx hydrALAZINE [Apresoline TAB] 50 mg PO TID #90 tab 08/18/19 Unknown Rx oxyCODONE /ACETAMINOPHEN [Percocet 1 tab PO Q6H PRN #10 tablet 08/18/19 Unknown Rx 5/325 mg] Active Medications: Generic Name Dose Route Start Last Admin Trade Name Freq PRN Reason Stop Dose Admin Acetaminophen 650 mg 08/11/19 20:03 Tylenol PO Q4H PRN Pain MILD(1-3)/Fever >100.5/JONES Aspirin 81 mg 08/11/19 21:00 08/17/19 09:23 Baby Aspirin PO 81 mg DAILY SMITHA Administration Carvedilol 12.5 mg 08/11/19 22:00 08/17/19 22:15 Coreg PO 12.5 mg BID SMITHA Administration Enoxaparin Sodium 30 mg 08/17/19 10:00 08/17/19 09:22 Enoxaparin SUB-Q 30 mg QDAY SMITHA Administration Famotidine 10 mg 08/11/19 22:00 08/17/19 22:16 Pepcid PO 10 mg BID SMITHA Administration Furosemide 40 mg 08/12/19 06:00 08/18/19 05:25 Lasix IV 40 mg 0600,1800 SMITHA Administration Hydralazine HCl 10 mg 08/11/19 20:54 Apresoline IV Q3H PRN Blood Pressure Hydralazine HCl 50 mg 08/15/19 12:28 08/17/19 22:15 Apresoline PO 50 mg TID SMITHA Administration Hydromorphone HCl 0.5 mg 08/11/19 20:03 Dilaudid IV Q3H PRN Pain , Severe (7-10) Insulin Human Lispro 0 unit 08/11/19 22:00 08/17/19 22:19 Humalog SUB-Q 2 unit ACHS SMITHA Administration Protocol Isosorbide Dinitrate 20 mg 08/14/19 14:00 08/18/19 05:24 Isordil Titradose PO 20 mg Q8HR SMITHA Administration Nifedipine 60 mg 08/14/19 13:00 08/17/19 09:25 Procardia Xl PO 60 mg QDAY SMITHA Administration Ondansetron HCl 4 mg 08/11/19 20:03 Zofran IV Q8H PRN Nausea And Vomiting Oxycodone/Acetaminophen 1 tab 08/11/19 20:03 Percocet 5/325 PO Q6H PRN Pain, Moderate (4-6) Oxymetazoline HCl 2 spray 08/12/19 23:42 08/17/19 17:57 Vicks Sinex NS 2 spray Q12H PRN Administration Nasal Congestion Pravastatin Sodium 40 mg 08/11/19 22:00 08/17/19 22:16 Pravachol PO 40 mg QHS SMITHA Administration Senna 17.2 mg 08/11/19 22:00 08/17/19 22:18 Senokot PO 17.2 mg QHS SMITHA Administration Sodium Chloride 10 ml 08/11/19 22:00 08/17/19 22:20 Sodium Chloride Flush Syringe 10 Ml IV 10 ml BID SMITHA Administration Sodium Chloride 10 ml 08/11/19 20:03 08/15/19 06:22 Sodium Chloride Flush Syringe 10 Ml IV 10 ml PRN PRN Administration LINE FLUSH
--- NOTE | 2019-08-18 10:28 | Discharge Summary ---
Providers - Providers Date of Admission: 08/11/19 18:18 Date of discharge: 08/18/19 Attending physician: LIZ GUSTAFSON 08/11/19 20:03 Consult to Physician [CONS] Routine Comment: Consulting Provider: CONG VALDES Physician Instructions: Reason For Exam: chf exacerbation 08/12/19 03:11 Consult to Wound/ET Nurse [CONS] Routine Reason For Exam: wound eval 08/16/19 15:44 Consult to Physician [CONS] Routine Comment: Consulting Provider: BOLA STEPHEN Physician Instructions: Reason For Exam: JYOTI Primary care physician: TEAM LEADER Hospitalization Reason for admission: chf exac Condition: Stable Hospital course: 64-year-old -Stateless male with a history of severe CHF with low ejection fraction of 15-20%, type 2 diabetes and hypertension, Vasomotor JYOTI superimposed on CKD and hyperlipidemia presented with complaints of shortness of breath with minimal exertion for the last 2 days [employer]. Patient also complained of orthopnea and PND. Also, the patient complained of severe scrotal and penile swelling. The patient was admitted with diagnosis of acute on chronic systolic heart failure, accelerated hypertension, scrotal edema, metabolic acidosis and medication noncompliance. With regards to scrotal edema, patient underwent testicular ultrasound which some question of torsion. Urology was consulted and felt that scrotal edema was due to CHF and no surgical intervention was needed. Abdominal ultrasound revealed marked ascites. Nephrology evaluated the patient for the acute kidney injury superimposed on CKD. Etiology was felt to be secondary to the decompensated heart failure and fluctuation of blood pressure. Urine studies were completed and renal ultrasound ordered. Ultrasound revealed mild right cortical thinning. Nephrology recommended outpatient cardiology follow-up and stable but guarded renal status. Cardiology was consulted and initiated IV milrinone therapy. Milrinone therapy was later discontinued and patient was continued on fluid/sodium restriction as well as therapy for systolic heart failure. Cardiology deemed the patient stable for discharge. Dedicated discharge time 32 minutes. Disposition: -01 TO HOME OR SELFCARE Time spent for discharge: 32 - Discharge Diagnoses (1) Acute exacerbation of congestive heart failure Status: Acute Qualifiers: Heart failure type: combined systolic and diastolic Qualified Code(s): I50.43 - Acute on chronic combined systolic (congestive) and diastolic (congestive) heart failure (2) Decompensated heart failure Status: Acute (3) Genital edema, male Status: Acute (4) Hypertensive emergency Status: Acute (5) Uncontrolled hypertension Status: Acute (6) Hyperlipidemia Status: Chronic Qualifiers: Hyperlipidemia type: mixed hyperlipidemia Qualified Code(s): E78.2 - Mixed hyperlipidemia (7) Type 2 diabetes mellitus Status: Chronic Qualifiers: Diabetes mellitus nursing home insulin use: without nursing home use (8) JYOTI (acute kidney injury) Status: Acute (9) Vasomotor nephropathy Status: Acute Core Measure Documentation - Palliative Care Palliative Care/ Comfort Measures: Not Applicable - Core Measures Any of the following diagnoses?: heart failure, none - Heart Failure Discharge Requirements BLAYNE/ARB for LVSD if EF <40%: No Reason for no BLAYNE/ARB: Renal impairment Beta yousif at discharge: Yes Exam - Constitutional Vitals: Temp Pulse Resp BP Pulse Ox 98.0 F 62 20 191/81 100 08/18/19 05:13 08/18/19 05:24 08/18/19 05:13 08/18/19 05:24 08/18/19 05:13 General appearance: Present: no acute distress, well-nourished - EENT Eyes: Present: PERRL ENT: hearing intact, clear oral mucosa - Neck Neck: Present: supple, normal ROM - Respiratory Respiratory effort: normal Respiratory: bilateral: CTA - Cardiovascular Heart Sounds: Present: S1 & S2. Absent: rub, click - Extremities Extremities: pulses symmetrical, No edema Peripheral Pulses: within normal limits - Abdominal General gastrointestinal: Present: soft, non-tender, non-distended, normal bowel sounds Male genitourinary: Present: normal - Integumentary Integumentary: Present: clear, warm, dry - Musculoskeletal Musculoskeletal: gait normal, strength equal bilaterally - Psychiatric Psychiatric: appropriate mood/affect, intact judgment & insight - Neurologic Neurologic: CNII-XII intact, moves all extremities Plan Activity: advance as tolerated Weight Bearing Status: Weight Bear as Tolerated Diet: low fat, low cholesterol, low salt, renal Special Instructions: restrict fluid intake to (1 L) Follow up with: MARY BHAKTA MD [Primary Care Provider] - 3-5 Days BOLA STEPHEN MD [Staff Physician] - 7 Days CONG VALDES MD [Staff Physician] - 7 Days Prescriptions: hydrALAZINE [Apresoline TAB] 50 mg PO TID #90 tab Aspirin [Aspirin BABY CHEW TAB] 81 mg PO DAILY #30 tab.chew carvediloL [Coreg] 12.5 mg PO BID #60 tablet Isosorbide Dinitrate [Isordil Titradose] 20 mg PO Q8HR #90 tablet Potassium Chloride [K-Dur] 10 meq PO QDAY #30 tablet Furosemide [Lasix TAB] 40 mg PO BID #60 tablet oxyCODONE /ACETAMINOPHEN [Percocet 5/325 mg] 1 tab PO Q6H PRN #10 tablet PRN Reason: Pain, Moderate (4-6) NIFEdipine XL [Procardia Xl] 60 mg PO QDAY #30 tablet Sennosides Tab [Senokot] 17.2 mg PO QHS #30 tablet Simvastatin 20 mg PO DAILY #30 tab
[2019-08-18] MEDS: carvediloL 12.5 MG TAB PO SCH (10:42)
[2019-08-18] MEDS: NIFEdipine XL 60 MG TAB PO SCH (10:44)
[2019-08-18] MEDS: FAMOTIDINE 10 MG TAB PO SCH (10:44)
[2019-08-18] MEDS: ASPIRIN 81 MG TAB CHEW PO SCH (10:44)
[2019-08-18] MEDS: ENOXAPARIN 30 MG/0.3 ML INJ SUB-Q SCH (10:44)
[2019-08-18 10:51] LABS: Calcium 8.6 mg/dL (8.4-10.2)
[2019-08-18 14:07] VITALS: BP 175/68
== END 2019-08-18 13:34 | disposition home or self-care (01) | DRG 291 ==
LOC: ED 14:12 → 4A 18:18
PROVIDERS: ADMIT Internal Medicine; ATTEND Hospitalist
PROC: 3E0234Z Introduction of Serum, Toxoid and Vaccine into Muscle, Percutaneous Approach (ICD-10-PCS; principal; 2019-08-15)
DX: I13.0 Hypertensive heart and chronic kidney disease with heart failure and stage 1 through stage 4 chronic kidney disease, or unspecified chronic kidney disease (principal); I50.43 Acute on chronic combined systolic (congestive) and diastolic (congestive) heart failure; I16.1 Hypertensive emergency; R18.8 Other ascites; E87.2 Acidosis; N17.9 Acute kidney failure, unspecified; N50.89 Other specified disorders of the male genital organs; E11.22 Type 2 diabetes mellitus with diabetic chronic kidney disease; E11.649 Type 2 diabetes mellitus with hypoglycemia without coma; E78.2 Mixed hyperlipidemia; N18.3 Chronic kidney disease, stage 3 (moderate); R71.8 Other abnormality of red blood cells; K59.00 Constipation, unspecified; I42.8 Other cardiomyopathies; F17.200 Nicotine dependence, unspecified, uncomplicated; Z23 Encounter for immunization; Z88.8 Allergy status to other drugs, medicaments and biological substances; Z79.899 Other long term (current) drug therapy; Z86.79 Personal history of other diseases of the circulatory system; Z82.49 Family history of ischemic heart disease and other diseases of the circulatory system; Z71.6 Tobacco abuse counseling; Z79.82 Long term (current) use of aspirin; Z79.84 Long term (current) use of oral hypoglycemic drugs; Z91.14 Patient's other noncompliance with medication regimen
CPT/HCPCS: 36415; 71046; 76705; 76770; 80048; 80053; 81001; 82570; 82607; 82747; 82947; 82962; 83036; 83550; 83735; 83880; 84132; 84300; 85025; 85027; 87116; 90670; 90686; 93005; 93010; 93975; 96374; G0378; A9270-GY; J0360; J1650; J1815; J1940; J2260

== ENCOUNTER 2019-09-18 10:30 | Emergency (ER) | payer OTHER ==
--- NOTE | 2019-09-18 11:43 | Emergency Department Report ---
Blank Doc - Documentation Documentation: 64-year-old male that presents with right elbow and right ankle pain s/p trip and fall. Denies any other injuries or trauma. Denies any head injuries or neck pain. This initial assessment/diagnostic orders/clinical plan/treatment(s) is/are subject to change based on patient's health status, clinical progression and re- assessment by fellow clinical providers in the ED. Further treatment and workup at subsequent clinical providers discretion. Patient/guardians urged not to elope from the ED as their condition may be serious if not clinically assessed and managed. Initial orders include: 1- Patient sent to [facility] for further evaluation and treatment 2- xrays
[2019-09-18 11:44] VITALS: BP 186/84
--- NOTE | 2019-09-18 12:40 | XRay Report ---
RIGHT ANKLE 3 VIEWS INDICATION: pain s/p fall. COMPARISON: None. IMPRESSION: There is moderate to severe diffuse soft tissue swelling. No acute osseous injury are mary int pathology is detected. The hindfoot is grossly intact. No significant DJD. Signer Name: Lion Carney Jr, MD Signed: 09/18/2019 12:36 PM Workstation Name: [id number]
--- NOTE | 2019-09-18 12:41 | XRay Report ---
RIGHT ELBOW 3 VIEWS INDICATION: pain s/p fall. COMPARISON: None. IMPRESSION: There is moderate posterior soft tissue swelling. No acute osseous injury or joint patho logy is detected. No significant DJD. Signer Name: Lion Carney Jr, MD Signed: 09/18/2019 12:36 PM Workstation Name: [id number]
--- NOTE | 2019-09-18 16:19 | Emergency Department Report ---
ED General Adult HPI - General Chief complaint: Fall Stated complaint: RT SIDE PAIN/FALL INJURY Time Seen by Provider: 09/18/19 11:42 Source: patient Mode of arrival: Wheelchair Limitations: No Limitations - History of Present Illness Initial comments: 64-year-old male presents with right elbow and right ankle pain s/p trip and fall x 2 days ago. He denies any head injury, loss of consciousness, other injuries, or preceding dizziness/chest pain/shortness of breath. He rates his pain as a 10/10 in severity and states the joints are very swollen. Patient states Tylenol is not helping -: Sudden Severity scale (0 -10): 10 Quality: constant - Related Data Home Medications Medication Instructions Recorded Confirmed Last Taken glipiZIDE XL [Glucotrol Xl] 10 mg PO DAILY 11/23/18 08/16/19 11/23/18 Previous Rx's Medication Instructions Recorded Last Taken Type Aspirin [Aspirin BABY CHEW TAB] 81 mg PO DAILY #30 tab.chew 08/18/19 Unknown Rx Furosemide [Lasix TAB] 40 mg PO BID #60 tablet 08/18/19 Unknown Rx Isosorbide Dinitrate [Isordil 20 mg PO Q8HR #90 tablet 08/18/19 Unknown Rx Titradose] NIFEdipine XL [Procardia Xl] 60 mg PO QDAY #30 tablet 08/18/19 Unknown Rx Potassium Chloride [K-Dur] 10 meq PO QDAY #30 tablet 08/18/19 Unknown Rx Sennosides Tab [Senokot] 17.2 mg PO QHS #30 tablet 08/18/19 Unknown Rx Simvastatin 20 mg PO DAILY #30 tab 08/18/19 Unknown Rx carvediloL [Coreg] 12.5 mg PO BID #60 tablet 08/18/19 Unknown Rx hydrALAZINE [Apresoline TAB] 50 mg PO TID #90 tab 08/18/19 Unknown Rx oxyCODONE /ACETAMINOPHEN [Percocet 1 tab PO Q6H PRN #10 tablet 08/18/19 Unknown Rx 5/325 mg] traMADoL [Ultram 50 MG tab] 50 mg PO Q8HR PRN #8 tablet 09/18/19 Unknown Rx Allergies Allergy/AdvReac Type Severity Reaction Status Date / Time lisinopril Allergy Unknown Verified 08/11/19 14:13 ED Review of Systems ROS: Stated complaint: RT SIDE PAIN/FALL INJURY Other details as noted in HPI Comment: All other systems reviewed and negative Musculoskeletal: as per HPI ED Past Medical Hx - Past Medical History Previous Medical History?: Yes Hx Hypertension: Yes Hx Congestive Heart Failure: Yes Hx Diabetes: Yes Hx Asthma: No Hx COPD: No - Social History Smoking Status: Never Smoker Substance Use Type: None - Medications Home Medications: Home Medications Medication Instructions Recorded Confirmed Last Taken Type glipiZIDE XL [Glucotrol Xl] 10 mg PO DAILY 11/23/18 08/16/19 11/23/18 History Aspirin [Aspirin BABY CHEW TAB] 81 mg PO DAILY #30 tab.chew 08/18/19 Unknown Rx Furosemide [Lasix TAB] 40 mg PO BID #60 tablet 08/18/19 Unknown Rx Isosorbide Dinitrate [Isordil 20 mg PO Q8HR #90 tablet 08/18/19 Unknown Rx Titradose] NIFEdipine XL [Procardia Xl] 60 mg PO QDAY #30 tablet 08/18/19 Unknown Rx Potassium Chloride [K-Dur] 10 meq PO QDAY #30 tablet 08/18/19 Unknown Rx Sennosides Tab [Senokot] 17.2 mg PO QHS #30 tablet 08/18/19 Unknown Rx Simvastatin 20 mg PO DAILY #30 tab 08/18/19 Unknown Rx carvediloL [Coreg] 12.5 mg PO BID #60 tablet 08/18/19 Unknown Rx hydrALAZINE [Apresoline TAB] 50 mg PO TID #90 tab 08/18/19 Unknown Rx oxyCODONE /ACETAMINOPHEN [Percocet 1 tab PO Q6H PRN #10 tablet 08/18/19 Unknown Rx 5/325 mg] traMADoL [Ultram 50 MG tab] 50 mg PO Q8HR PRN #8 tablet 09/18/19 Unknown Rx ED Physical Exam - General Limitations: No Limitations General appearance: alert, in no apparent distress - Head Head exam: Present: atraumatic, normocephalic - Eye Eye exam: Present: normal appearance - Neck Neck exam: Present: normal inspection - Respiratory Respiratory exam: Present: normal lung sounds bilaterally. Absent: respiratory distress - Cardiovascular Cardiovascular Exam: Present: regular rate, normal rhythm. Absent: systolic murmur, diastolic murmur, rubs, gallop - Extremities Exam Extremities exam: Present: joint swelling, other (tenderness and mild to moderate swelling noted of right ankle. No bruising noted. Mild tenderness noted to right elbow without erythema or bruising. Normal range of motion of both right ankle and right elbow noted) - Back Exam Back exam: Present: normal inspection - Neurological Exam Neurological exam: Present: alert, oriented X3. Absent: normal gait (difficulty with ambulation due to ankle pain) - Psychiatric Psychiatric exam: Present: normal affect, normal mood - Skin Skin exam: Present: warm, dry, intact, normal color. Absent: rash, erythema ED Course Vital Signs 09/18/19 11:43 Temperature 98.3 F Pulse Rate 83 Respiratory 20 Rate Blood Pressure 186/84 O2 Sat by Pulse 100 Oximetry ED Medical Decision Making - Radiology Data Radiology results: report reviewed RIGHT ELBOW 3 VIEWS INDICATION: pain s/p fall. COMPARISON: None. IMPRESSION: There is moderate posterior soft tissue swelling. No acute osseous injury or joint pathology is detected. No significant DJD. RIGHT ANKLE 3 VIEWS INDICATION: pain s/p fall. COMPARISON: None. IMPRESSION: There is moderate to severe diffuse soft tissue swelling. No acute osseous injury are joint pathology is detected. The hindfoot is grossly intact. No significant DJD. - Medical Decision Making 64-year-old male patient here with right ankle and right elbow pain after a trip and fall 2 days ago. X-rays are negative for acute bony abnormality. Moderate swelling to joints noted on exam. Joints were wrapped in an José Luis wrap. Patient provided with crutches. He is nontoxic appearing and stable for discharge home. Patient instructed to follow up with an clinical exercise specialist. Discussed strict return precautions in detail with patient who verbalizes understanding. Critical care attestation.: If time is entered above; I have spent that time in minutes in the direct care of this critically ill patient, excluding procedure time. ED Disposition Clinical Impression: Right ankle sprain Qualifiers: Encounter type: initial encounter Involved ligament of ankle: other ligament Qualified Code(s): S93.491A - Sprain of other ligament of right ankle, initial encounter Injury of right elbow Qualifiers: Encounter type: initial encounter Qualified Code(s): S59.901A - Unspecified injury of right elbow, initial encounter Disposition: - TO HOME OR SELFCARE Is pt being admited?: No Condition: Stable Prescriptions: traMADoL [Ultram 50 MG tab] 50 mg PO Q8HR PRN #8 tablet PRN Reason: Pain Referrals: JAHAIRA FERNANDO MD [Staff Physician] - 2-3 Days
[2019-09-18] MEDS ORDERED: traMADol 50 MG TAB PO ONE (16:45)
== END 2019-09-18 18:43 | disposition home or self-care (01) ==
LOC: ED 10:30
DX: S93.491A Sprain of other ligament of right ankle, initial encounter (principal); S59.901A Unspecified injury of right elbow, initial encounter; I11.0 Hypertensive heart disease with heart failure; I50.9 Heart failure, unspecified; E11.9 Type 2 diabetes mellitus without complications; Z79.899 Other long term (current) drug therapy; Z88.8 Allergy status to other drugs, medicaments and biological substances; W01.0XXA Fall on same level from slipping, tripping and stumbling without subsequent striking against object, initial encounter; Y93.89 Activity, other specified; Y92.89 Other specified places as the place of occurrence of the external cause; Y99.8 Other external cause status

== ENCOUNTER 2020-01-18 12:59 | Emergency (ER) | payer SELFPAY ==
[2020-01-18] MEDS ORDERED: ASPIRIN 325 MG TAB PO ONE (13:07)
--- NOTE | 2020-01-18 13:47 | XRay Report ---
CHEST 2 VIEWS INDICATION / CLINICAL INFORMATION: CHEST PAIN. COMPARISON: Chest x-ray on 08/11/2019. FINDINGS: SUPPORT DEVICES: None. HEART / MEDIASTINUM: Stable mild cardiomegaly. LUNGS / PLEURA: No significant pulmonary or pleural abnormality. No pneumothorax. ADDITIONAL FINDINGS: No significant additional findings. IMPRESSION: 1. Stable mild cardiomegaly without acute pulmonary abnormality. No adverse change from 08/11/2019. Signer Name: Rohan Lara MD Signed: 01/18/2020 1:43 PM Workstation Name: [id number]
[2020-01-18 13:55] LABS: Eosinophils % (Auto) 2.1 % (0.0-4.3); Hematocrit 44.6 % (35.5-45.6); Hemoglobin 13.8 gm/dl (11.8-15.2); Lymphocytes % (Auto) 21.7 % (13.4-35.0); Mean Corpuscular HGB Conc 31 % (32-34); Mean Corpuscular Volume 81 fl (84-94); Monocytes % (Auto) 7.8 % (0.0-7.3); Platelet Count 177 K/mm3 (140-440); Red Cell Distribution Width 17.8 % (13.2-15.2)
[2020-01-18 13:56] LABS: Basophils # (Auto) 0.1 K/mm3 (0.0-0.1); Basophils % (Auto) 1.4 % (0.0-1.8); Eosinophils # (Auto) 0.1 K/mm3 (0.0-0.4); Lymphocytes # (Auto) 0.9 K/mm3 (1.2-5.4); Monocytes # (Auto) 0.3 K/mm3 (0.0-0.8)
[2020-01-18 14:23] LABS: Calcium 8.4 mg/dL (8.4-10.2)
[2020-01-18 14:42] LABS: Chol/HDL Ratio 2.27 %
--- NOTE | 2020-01-18 18:11 | Emergency Department Report ---
ED General Adult HPI - General Chief complaint: Chest Pain Stated complaint: CHEST PAIN/GENITALS SWELLING PUI?: No Time Seen by Provider: 01/18/20 17:44 Source: patient Mode of arrival: Ambulatory Limitations: No Limitations - History of Present Illness Initial comments: Patient is a 64-year-old gentleman. The patient is not known to myself previously. His past medical history includes CHF, ejection fraction 15 to 20%, type 2 diabetes, hypertension, renal insufficiency, high cholesterol. He had a cardiac nuclear stress test at this hospital in 2019, which was negative for ischemic disease. He presents to the ER with 3 to 4 days of abdominal swelling, painless penile swelling, lower extremity swelling, chest tightness, shortness of breath. He denies headache, neck pain, abdominal pain, vomiting, diaphoresis. He is not compliant with his medications. He denies DVT and pulmonary embolism risk factors. Symptoms gradual over the past 3 to 4 days, do not radiate anywhere, shortness of breath worsened with physical exertion and decreases with rest. Abdominal distention is gradual. Lower extremity swelling is gradual. -: Gradual Location: abdomen, genitals, left, right, lower extremity Severity scale (0 -10): 10 Consistency: constant Improves with: rest Worsens with: movement - Related Data Previous Rx's Medication Instructions Recorded Last Taken Type Potassium Chloride [K-Dur] 10 meq PO QDAY #30 tablet 08/18/19 Unknown Rx Sennosides Tab [Senokot] 17.2 mg PO QHS #30 tablet 08/18/19 Unknown Rx Aspirin [Aspirin BABY CHEW TAB] 81 mg PO DAILY #30 tab.chew 01/18/20 Unknown Rx Furosemide [Lasix TAB] 40 mg PO BID #60 tablet 01/18/20 Unknown Rx Isosorbide Dinitrate [Isordil] 20 mg PO Q8HR #90 tablet 01/18/20 Unknown Rx NIFEdipine XL [Procardia Xl] 60 mg PO QDAY #30 tablet 01/18/20 Unknown Rx Simvastatin 20 mg PO DAILY #30 tab 01/18/20 Unknown Rx carvediloL [Coreg] 12.5 mg PO BID #60 tablet 01/18/20 Unknown Rx glipiZIDE XL [Glucotrol Xl] 10 mg PO DAILY #30 01/18/20 Unknown Rx hydrALAZINE [Apresoline TAB] 50 mg PO TID #90 tab 01/18/20 Unknown Rx Allergies Allergy/AdvReac Type Severity Reaction Status Date / Time lisinopril Allergy Unknown Verified 01/18/20 13:01 ED Review of Systems ROS: Stated complaint: CHEST PAIN/GENITALS SWELLING Other details as noted in HPI Constitutional: malaise. denies: fever Eyes: denies: eye discharge ENT: congestion Respiratory: cough, shortness of breath Cardiovascular: dyspnea on exertion, orthopnea, edema Gastrointestinal: denies: nausea, vomiting, diarrhea Genitourinary: as per HPI. denies: testicular pain Musculoskeletal: myalgia Skin: denies: lesions Neurological: weakness Psychiatric: as per HPI Hematological/Lymphatic: as per HPI ED Past Medical Hx - Past Medical History Hx Hypertension: Yes Hx Congestive Heart Failure: Yes Hx Diabetes: Yes Hx Asthma: No Hx COPD: No - Social History Smoking Status: Never Smoker Substance Use Type: None - Medications Home Medications: Home Medications Medication Instructions Recorded Confirmed Last Taken Type Potassium Chloride [K-Dur] 10 meq PO QDAY #30 tablet 08/18/19 Unknown Rx Sennosides Tab [Senokot] 17.2 mg PO QHS #30 tablet 08/18/19 Unknown Rx Aspirin [Aspirin BABY CHEW TAB] 81 mg PO DAILY #30 tab.chew 01/18/20 Unknown Rx Furosemide [Lasix TAB] 40 mg PO BID #60 tablet 01/18/20 Unknown Rx Isosorbide Dinitrate [Isordil] 20 mg PO Q8HR #90 tablet 01/18/20 Unknown Rx NIFEdipine XL [Procardia Xl] 60 mg PO QDAY #30 tablet 01/18/20 Unknown Rx Simvastatin 20 mg PO DAILY #30 tab 01/18/20 Unknown Rx carvediloL [Coreg] 12.5 mg PO BID #60 tablet 01/18/20 Unknown Rx glipiZIDE XL [Glucotrol Xl] 10 mg PO DAILY #30 01/18/20 Unknown Rx hydrALAZINE [Apresoline TAB] 50 mg PO TID #90 tab 01/18/20 Unknown Rx ED Physical Exam - General Limitations: No Limitations General appearance: alert, in no apparent distress - Head Head exam: Present: atraumatic, normocephalic - Eye Eye exam: Present: normal appearance, EOMI. Absent: nystagmus - ENT ENT exam: Present: normal exam, normal orophraynx, mucous membranes moist, normal external ear exam - Neck Neck exam: Present: normal inspection, full ROM. Absent: tenderness, meningismus - Respiratory Respiratory exam: Present: other (Very faint rales noted at the lung bases). Absent: respiratory distress, wheezes, rhonchi, stridor - Cardiovascular Cardiovascular Exam: Present: regular rate, normal rhythm, normal heart sounds, JVD. Absent: bradycardia, tachycardia, irregular rhythm, systolic murmur, diastolic murmur, rubs, gallop - GI/Abdominal GI/Abdominal exam: Present: soft, distended. Absent: tenderness, guarding, rebound, rigid, pulsatile mass - Rectal Rectal exam: Present: deferred - exam: Present: other (There is painless phallus swelling. There is no testicular tenderness. There is no phallic tenderness. There is normal testicular lie bilaterally. There is an intact cremasteric reflex intact bilaterally. Chaperoned by nurse Damaso Tran) - Extremities Exam Extremities exam: Present: normal inspection, full ROM, pedal edema (2-3+ edema in the bilateral lower extremity), other (2+ pulses noted in the bilateral upper and lower extremities. There is no palpable cord. negative Homans sign. Muscular compartments are soft. The pelvis is stable.). Absent: calf tenderness - Back Exam Back exam: Present: normal inspection. Absent: tenderness, CVA tenderness (R), CVA tenderness (L), paraspinal tenderness, vertebral tenderness - Neurological Exam Neurological exam: Present: alert, oriented X3, normal gait, other (No facial droop. Tongue midline. Extraocular movements intact bilaterally. Facial sensation intact to light touch in V1, V2, V3 distribution bilaterally. 5 and a 5 strength in 4 extremities. Sensation intact to light touch in 4 extremitie s.). Absent: motor sensory deficit - Psychiatric Psychiatric exam: Present: normal affect, normal mood - Skin Skin exam: Present: warm, dry, intact, normal color. Absent: rash ED Course Vital Signs 01/18/20 01/18/20 01/18/20 13:10 17:53 18:00 Temperature 97.4 F L Pulse Rate 98 H 76 75 Respiratory 18 17 24 Rate Blood Pressure Blood Pressure 184/107 [Left] O2 Sat by Pulse 98 97 95 Oximetry 01/18/20 01/18/20 01/18/20 18:07 18:13 18:16 Temperature Pulse Rate 80 78 Respiratory 22 22 18 Rate Blood Pressure 191/108 Blood Pressure 190/108 [Left] O2 Sat by Pulse 97 98 98 Oximetry 01/18/20 01/18/20 19:00 19:30 Temperature 98.0 F Pulse Rate 88 72 Respiratory 20 Rate Blood Pressure 190/100 Blood Pressure 179/89 [Left] O2 Sat by Pulse 96 Oximetry ED Medical Decision Making - Lab Data Result diagrams: 01/18/20 13:17 01/18/20 13:17 Vital Signs 01/18/20 13:10 Temperature 97.4 F L Pulse Rate 98 H Respiratory 18 Rate Blood Pressure 184/107 [Left] O2 Sat by Pulse 98 Oximetry Lab Results 01/18/20 01/18/20 01/18/20 Range/Units 13:17 13:17 15:25 WBC 4.0 L (4.5-11.0) K/mm3 RBC 5.50 H (3.65-5.03) M/mm3 Hgb 13.8 (11.8-15.2) gm/dl Hct 44.6 (35.5-45.6) % MCV 81 L (84-94) fl MCH 25 L (28-32) pg MCHC 31 L (32-34) % RDW 17.8 H (13.2-15.2) % Plt Count 177 (140-440) K/mm3 Lymph % (Auto) 21.7 (13.4-35.0) % [place] % (Auto) 7.8 H (0.0-7.3) % Eos % (Auto) 2.1 (0.0-4.3) % Baso % (Auto) 1.4 (0.0-1.8) % Lymph # 0.9 L (1.2-5.4) K/mm3 [place] # 0.3 (0.0-0.8) K/mm3 Eos # 0.1 (0.0-0.4) K/mm3 Baso # 0.1 (0.0-0.1) K/mm3 Seg Neutrophils % 67.0 (40.0-70.0) % Seg Neutrophils # 2.7 (1.8-7.7) K/mm3 Sodium 142 (137-145) mmol/L Potassium 4.5 (3.6-5.0) mmol/L Chloride 109.6 H (98-107) mmol/L Carbon Dioxide 21 L (22-30) mmol/L Anion Gap 16 mmol/L BUN 36 H (9-20) mg/dL Creatinine 2.0 H (0.8-1.5) mg/dL Estimated GFR 41 ml/min BUN/Creatinine Ratio 18 % Glucose 90 (75-100) mg/dL Calcium 8.4 (8.4-10.2) mg/dL Troponin T 0.044 H 0.043 H (0.00-0.029) ng/mL Triglycerides 71 (2-149) mg/dL Cholesterol 125 (50-199) mg/dL LDL Cholesterol Direct 64 (50-130) mg/dL HDL Cholesterol 55 (40-59) mg/dL Cholesterol/HDL Ratio 2.27 % - EKG Data -: EKG Interpreted by Id EKG shows normal: sinus rhythm Rate: normal - EKG Data When compared to previous EKG there are: no significant change 01/18/20 18:30 Sinus rhythm 85 bpm, normal axis, QTC is prolonged, poor R wave progression, lateral T wave inversions, the EKG is abnormal, the EKG is not a STEMI, it is unchanged from prior EKG from 08/11/2019 - Radiology Data Radiology results: report reviewed, image reviewed Print Report Referring Physician: LUIS GUNDERSON Patient Name: DARREL MURPHY Date of : 1955 Sex: Male Report Date: 2020-01-18 Report Status: Finalized Findings [facility] [address] [place] [address] XRay Report Signed Patient: DARREL MURPHY MR#: [id number] : 1955 Acct:[id number] Age/Sex: 64 / M ADM Date: 01/18/20 Loc: ED Attending Dr: Ordering Physician: LUIS GUNDERSON MD Date of Service: 01/18/20 Procedure(s): XR chest routine 2V Accession Number(s): [id number] cc: LUIS GUNDERSON MD Fluoro Time In Minutes: CHEST 2 VIEWS INDICATION / CLINICAL INFORMATION: CHEST PAIN. COMPARISON: Chest x-ray on 08/11/2019. FINDINGS: SUPPORT DEVICES: None. HEART / MEDIASTINUM: Stable mild cardiomegaly. LUNGS / PLEURA: No significant pulmonary or pleural abnormality. No pneumothorax. ADDITIONAL FINDINGS: No significant additional findings. IMPRESSION: 1. Stable mild cardiomegaly without acute pulmonary abnormality. No adverse change from 08/11/2019. Signer Name: Josiane Lara MD Signed: 01/18/2020 1:43 PM Workstation Name: [id number] Transcribed By: DIMAS Dictated By: Rohan Lara MD Electronically Authenticated By: Rohan Lara MD Signed Date/Time: 01/18/201342 DD/ 134 - Medical Decision Making Differential diagnosis, including but not limited to: Congestive heart failure, volume overload, noncompliance Assessment and plan: 64-year-old gentleman with a known history of CHF, renal insufficiency, had a negative nuclear stress test November 2018, presenting with probable congestive heart failure and fluid overload. He is afebrile with reassuring vital signs with the exception of chronic hypertension. He is saturating well on room air, and speaks in full sentences, and is walking with a steady gait. Elevated troponin is reviewed and appreciated, this is likely a type II troponin leak. His EKG is unchanged from prior. Given history of noncompliance, he is not a candidate for ICD. I contacted cardiology on-call, Dr. Butler, and we discussed the patient's history, physical, laboratory studies and EKG. It is my opinion that the patient would be suitable for trial of outpatient management, with close outpatient cardiology follow-up. The aforementioned employment legal assistant is in agreement, and makes similar recommendations. I also discussed this case with my hospital physician, Dr. Jacobsen, who is of similar mindset. In addition, after discussion with the employment legal assistant, the patient can be accommodated with an appointment tomorrow with the local cardiology group. I have refilled the patient's medications, given him a dose of high-dose Lasix and aspirin, and counseled him of the importance of medication compliance, diet and lifestyle compliance, and close outpatient cardiology follow-up. Critical Care Time: Yes Critical care time in (mins) excluding proc time.: 35 Critical care attestation.: If time is entered above; I have spent that time in minutes in the direct care of this critically ill patient, excluding procedure time. ED Disposition Clinical Impression: CHF (congestive heart failure), Hypertension, Non-compliance, CKD (chronic kidney disease) Disposition: DC-01 TO HOME OR SELFCARE Is pt being admited?: No Does the pt Need Aspirin: No Condition: Stable Instructions: Heart Failure (ED), Hypertension (ED) Additional Instructions: Please take the medications as directed and prescribed. Please make certain to consume a cardiac healthy diet, low in salt, and avoid consumption of excess fl uids. Please follow-up tomorrow with a employment legal assistant. For the patient's convenience, local cardiology group/employment legal assistant have been listed for his convenience to call. It is important to call the office first thing in the morning time, to arrange outpatient follow-up. When calling the office staff, please let the staff know that the patient was seen here in the emergency room, that we have discussed the case with cardiology on-call, and that we would like the patient to be seen in the office tomorrow. Patient may use the [employer] prescription card to get his outpatient prescriptions. It is very important that patient remain compliant with outpatient therapy, diet and lifestyle modifications, and outpatient follow-up. Noncompliance with therapy may cause worsening of medical condition, which may cause heart attack, disability, , paralysis, loss of quality of life. Please return to the emergency room right away with new pain, worsening pain, migration of pain, projectile vomiting, change in mental status, confusion, inability to tolerate liquid feeds, or new, worsened or different symptoms not present on the initial emergency room evaluation Prescriptions: hydrALAZINE [Apresoline TAB] 50 mg PO TID #90 tab Aspirin [Aspirin BABY CHEW TAB] 81 mg PO DAILY #30 tab.chew carvediloL [Coreg] 12.5 mg PO BID #60 tablet glipiZIDE XL [Glucotrol Xl] 10 mg PO DAILY #30 Isosorbide Dinitrate [Isordil] 20 mg PO Q8HR #90 tablet Furosemide [Lasix TAB] 40 mg PO BID #60 tablet NIFEdipine XL [Procardia Xl] 60 mg PO QDAY #30 tablet Simvastatin 20 mg PO DAILY #30 tab Referrals: CONG VALDES MD [Staff Physician] - 3-5 Days [facility] [Provider Group] - 3-5 Days
[2020-01-18] MEDS ORDERED: FUROSEMIDE 40 MG/4 ML INJ IV ONE ×2 (18:12→18:20)
[2020-01-18] MEDS ORDERED: ASPIRIN 325 MG TAB ONE (18:21)
[2020-01-18] MEDS ORDERED: carvediloL 12.5 MG TAB PO STA (18:23)
[2020-01-18] MEDS ORDERED: NIFEdipine XL 60 MG TAB PO STA (18:23)
[2020-01-18] MEDS ORDERED: hydrALAZINE 100 MG TAB PO STA (18:23)
[2020-01-18] MEDS ORDERED: ISOSORBIDE DINITRATE 20 MG TAB PO STA (18:23)
[2020-01-18 19:31] VITALS: BP 179/89
== END 2020-01-18 19:31 | disposition home or self-care (01) ==
LOC: ED 12:59
DX: I13.0 Hypertensive heart and chronic kidney disease with heart failure and stage 1 through stage 4 chronic kidney disease, or unspecified chronic kidney disease (principal); N18.9 Chronic kidney disease, unspecified; I50.9 Heart failure, unspecified; Z79.899 Other long term (current) drug therapy; Z88.6 Allergy status to analgesic agent
CPT/HCPCS: 36415; 71046; 80048; 80061; 84484; 85025; 93005; 96374; 99284; J1940